=== PATIENT | male | born 1940 | race Caucasian/White ===

== ENCOUNTER 2018-11-14 17:13 | Inpatient (IN) | payer MEDICARE ==
[~2018-11-14] VITALS: Ht 172.7 cm; Wt 73.2 kg
--- NOTE | 2018-11-14 17:41 | EKG ---
[address] [address] Test Date: 2018-11-14 Test Time: 17:36:23 Pat Name: FELISA GARRISON Department: Room: Gender: M [employer]: ROXY : 1940 Requested By: SUSANNA MCDOWELL Order Number: [id number] Reading MD: Freddy Foster Measurements Intervals Vincent Rate: 88 P: 69 OR: 164 QRS: 9 QRSD: 76 T: 51 QT: 352 QTc: 429 Interpretive Statements SINUS RHYTHM NO SPECIFIC ECG ABNORMALITIES RI6.01 No previous ECG available for comparison Electronically Signed On 12-09-2018 13:02:58 CDT by Freddy Foster
--- NOTE | 2018-11-14 17:50 | PHYS DOC ---
Past History Past Medical History: Anxiety, CAD, Dementia, Hypertension (SUSANNA MCDOWELL DO) Smoking: Non-smoker Alcohol Use: None Drug Use: None (RUSSEL MCDOWELLSHARON CARDONA) Adult General Chief Complaint Chief Complaint: MEDICAL CLEARANCE HPI HPI Patient is a 77-year-old male here for medical clearance for the behavioral health unit. He eloped from the facility where he resides yesterday. He is been confused and combative and aggressive with staff. Refusing to take medicine at this facility where he resides. He believes that he is in school and that the staff there is trying to kill him. History is limited from the patient due to his dementia.[] (SUSANNA MCDOWELL ) Review of Systems Review of Systems Constitutional: Denies fever or chills [] Eyes: Denies change in visual acuity, redness, or eye pain [] HENT: Denies nasal congestion or sore throat [] Respiratory: Denies cough or shortness of breath [] Cardiovascular: No chest pain or palpitations[] GI: Denies abdominal pain, nausea, vomiting, bloody stools or diarrhea [] : Denies dysuria or hematuria [] Musculoskeletal: Denies back pain or joint pain [] Integument: Denies rash or skin lesions [] Neurologic: Denies headache, focal weakness or sensory changes [] Endocrine: Denies polyuria or polydipsia [] All other systems were reviewed and found to be within normal limits, except as documented in this note. (SUSANNA MCDOWELL ) Physical Exam Physical Exam Constitutional: Well developed, well nourished, no acute distress, non-toxic appearance. [] HENT: Normocephalic, atraumatic, bilateral external ears normal, oropharynx moist, no oral exudates, nose normal. [] Eyes: PERRLA, EOMI, conjunctiva normal, no discharge. [] Neck: Normal range of motion, no tenderness, supple, no stridor. [] Cardiovascular:Heart rate regular rhythm, no murmur [] Lungs & Thorax: Bilateral breath sounds clear to auscultation [] Abdomen: Bowel sounds normal, soft, no tenderness, no masses, no pulsatile masses. [] Skin: Warm, dry, no erythema, no rash. [] Back: No tenderness, no CVA tenderness. [] Extremities: No tenderness, no cyanosis, no clubbing, ROM intact, no edema. [] Neurologic: Alert and oriented X one, normal motor function, normal sensory function, no focal deficits noted. [] Psychologic: Affect normal, mood normal. [] (SUSANNA MCDOWELL DO) EKG EKG EKG shows a sinus rhythm at 80 bpm, normal axis, normal QTC, no ST elevations. No old EKG available for comparison. Interpreted by me at 1736.[] (SUSANNA MCDOWELL DO) Radiology/Procedures Radiology/Procedures [] (SUSANNA MCDOWELL DO) Course & Med Decision Making Course & Med Decision Making Pertinent Labs and Imaging studies reviewed. (See chart for details) ED course: Patient arrived, was placed in bed, and tolerated exam well. At the time of this dictation labs are pending. Patient care is endorsed to the nighttime physician at 1800 with ultimate disposition pending.[] (SUSANNA MCDOWELL DO) Course & Med Decision Making The patient's labs are unremarkable except for slightly elevated creatinine 1.5. His urine is unremarkable. His valproic acid is subtherapeutic. He is medically stable for behavioral health admission. (ESME MOLINA DO) Dragon Disclaimer Dragon Disclaimer This electronic medical record was generated, in whole or in part, using a voice recognition dictation system. (SUSANNA MCDOWELL DO) Departure Departure: Impression: Primary Impression: Medical clearance for psychiatric admission Disposition: ADMITTED INPATIENT Condition: STABLE Referrals: CARTER BECKER (PCP) SUSANNA MCDOWELL DO Nov 14, 2018 17:49 ESME MOLINA DO Nov 14, 2018 18:25
[2018-11-14 17:51] LABS: BASO # 0.1 x10^3/uL (0.0-0.2); BASO % 1 % (0-3); EOS # 0.2 x10^3/uL (0.0-0.7); EOS % 2 % (0-3); HEMATOCRIT 44.8 % (39.0-53.0); HEMOGLOBIN 15.5 g/dL (13.0-17.5); LYMPH % 22 % (24-48); MEAN CORPUSCULAR HEMOGLOBIN 32 pg (25-35); MEAN CORPUSCULAR HGB CONC 35 g/dL (31-37); MEAN CORPUSCULAR VOLUME 94 fL (79-100); MONO % 11 % (0-9); NEUT # 5.9 x10^3uL (1.8-7.7); NEUT % 64 % (31-73); PLATELET COUNT 203 x10^3/uL (140-400); RED BLOOD COUNT 4.78 x10^6/uL (4.30-5.70); RED CELL DISTRIBUTION WIDTH 13.4 % (11.5-14.5); WHITE BLOOD COUNT 9.2 x10^3/uL (4.0-11.0)
[2018-11-14 17:56] LABS: BACTERIA,URINE 0 /HPF (0-FEW); BILIRUBIN,URINE NEG (NEG); CLARITY,URINE CLEAR; COLOR,URINE AMBER; GLUCOSE,URINE NEG (NEG); NITRITE,URINE NEG (NEG); RBC,URINE 0 /HPF (0-2); UROBILINOGEN,URINE 0.2 mg/dL (0.2 mg/dL); WBC,URINE 0 /HPF (0-4)
[2018-11-14 18:06] LABS: ALBUMIN 3.7 g/dL (3.4-5.0); ALK PHOS 66 U/L (46-116); ALT (SGPT) 38 U/L (16-63); ANION GAP 13 (6-14); AST (SGOT) 30 U/L (15-37); BLOOD UREA NITROGEN 32 mg/dL (8-26); BUN/CREATININE RATIO 21 (6-20); CALCIUM 9.6 mg/dL (8.5-10.1); CARBON DIOXIDE 26 mmol/L (21-32); CHLORIDE 102 mmol/L (98-107); CREATININE 1.5 mg/dL (0.7-1.3); GFR 45.1; GLUCOSE 120 mg/dL (70-99); MAGNESIUM 1.9 mg/dL (1.8-2.4); POTASSIUM 3.5 mmol/L (3.5-5.1); SODIUM 141 mmol/L (136-145); TOTAL BILIRUBIN 0.6 mg/dL (0.2-1.0); TOTAL PROTEIN 7.4 g/dL (6.4-8.2); VAL ACID 22 mcg/mL (50-100)
[2018-11-14] MEDS ORDERED: MAG HYDROX/AL HYDROX/SIMETH 30 ML ORAL.SUSP PO PRN (20:00)
[2018-11-14] MEDS ORDERED: MAGNESIUM HYDROXIDE 2,400 MG/30 ML ORAL.SUSP. PO PRN (20:00)
[2018-11-14] MEDS ORDERED: METHYL SALICYLATE/MENTHOL TOPICAL OINTMENT 29GM TUBE. TP PRN (20:00)
[2018-11-14] MEDS ORDERED: ACETAMINOPHEN 325 MG TABLET PO PRN (20:00)
[2018-11-14 20:08] VITALS: BP 135/78
[2018-11-14] MEDS ORDERED: RIVA1PAT23 TD (21:08)
[2018-11-14] MEDS ORDERED: CARV3.12 PO (21:08)
[2018-11-14] MEDS ORDERED: HYDR12.572 PO (21:08)
[2018-11-14] MEDS ORDERED: CLON0.5T11 PO (21:08)
[2018-11-14] MEDS ORDERED: MIRT30TA PO (21:08)
[2018-11-14] MEDS ORDERED: DIVA500T4 PO (21:08)
[2018-11-14] MEDS ORDERED: AMLO10TA8 PO (21:08)
[2018-11-14] MEDS ORDERED: DIVA250T PO (21:08)
[2018-11-14] MEDS ORDERED: CYAN10005 PO (21:08)
[2018-11-14] MEDS ORDERED: DOCU-109 PO (21:08)
[2018-11-14] MEDS ORDERED: ASPI-630 PO (21:08)
[2018-11-14] MEDS: MIRTAZAPINE 30 MG TABLET PO SCH (21:33)
[2018-11-14] MEDS: clonazePAM 0.5 MG TABLET PO SCH (21:33)
--- NOTE | 2018-11-14 22:23 | PDOC ---
Exam Note: Rex Note: Please also refer to the separate dictated note~for this date of service dictated separately. Discussed the patient with Nursing staff reviewed the chart.~Reviewed interim history and current functioning. Reviewed vital signs,~Labs/ Radiology~and current medications noted below. Continue current treatment with the changes noted in the dictated addendum note Assessment: Vital Signs: Vital Signs Date Time Temp Pulse Resp B/P (MAP) Pulse Ox O2 Delivery O2 Flow Rate FiO2 11/14/18 20:08 99.5 79 20 135/78 (97) 11/14/18 17:15 95 Room Air Labs: Laboratory Tests Test 11/14/18 17:30 White Blood Count 9.2 x10^3/uL (4.0-11.0) Red Blood Count 4.78 x10^6/uL (4.30-5.70) Hemoglobin 15.5 g/dL (13.0-17.5) Hematocrit 44.8 % (39.0-53.0) Mean Corpuscular Volume 94 fL (79-100) Mean Corpuscular Hemoglobin 32 pg (25-35) Mean Corpuscular Hemoglobin Concent 35 g/dL (31-37) Red Cell Distribution Width 13.4 % (11.5-14.5) Platelet Count 203 x10^3/uL (140-400) Neutrophils (%) (Auto) 64 % (31-73) Lymphocytes (%) (Auto) 22 % (24-48) L Monocytes (%) (Auto) 11 % (0-9) H Eosinophils (%) (Auto) 2 % (0-3) Basophils (%) (Auto) 1 % (0-3) Neutrophils # (Auto) 5.9 x10^3uL (1.8-7.7) Lymphocytes # (Auto) 2.0 x10^3/uL (1.0-4.8) Monocytes # (Auto) 1.0 x10^3/uL (0.0-1.1) Eosinophils # (Auto) 0.2 x10^3/uL (0.0-0.7) Basophils # (Auto) 0.1 x10^3/uL (0.0-0.2) Urine Collection Type Unknown Urine Color Deisy Urine Clarity Clear Urine pH 5.5 Urine Specific [place] 1.025 Urine Protein Neg (NEG-TRACE) Urine Glucose (UA) Neg mg/dL (NEG) Urine Ketones (Stick) Neg mg/dL (NEG) Urine Blood Neg (NEG) Urine Nitrite Neg (NEG) Urine Bilirubin Neg (NEG) Urine Urobilinogen Dipstick 0.2 mg/dL (0.2 mg/dL) Urine Leukocyte Esterase Neg (NEG) Urine RBC 0 /HPF (0-2) Urine WBC 0 /HPF (0-4) Urine Squamous Epithelial Cells None /LPF Urine Bacteria 0 /HPF (0-FEW) Sodium Level 141 mmol/L (136-145) Potassium Level 3.5 mmol/L (3.5-5.1) Chloride Level 102 mmol/L (98-107) Carbon Dioxide Level 26 mmol/L (21-32) Anion Gap 13 (6-14) Blood Urea Nitrogen 32 mg/dL (8-26) H Creatinine 1.5 mg/dL (0.7-1.3) H Estimated GFR (Cockcroft-Gault) 45.1 BUN/Creatinine Ratio 21 (6-20) H Glucose Level 120 mg/dL (70-99) H Calcium Level 9.6 mg/dL (8.5-10.1) Magnesium Level 1.9 mg/dL (1.8-2.4) Total Bilirubin 0.6 mg/dL (0.2-1.0) Aspartate Amino Transferase (AST) 30 U/L (15-37) Alanine Aminotransferase (ALT) 38 U/L (16-63) Alkaline Phosphatase 66 U/L (46-116) Total Protein 7.4 g/dL (6.4-8.2) Albumin 3.7 g/dL (3.4-5.0) Albumin/Globulin Ratio 1.0 (1.0-1.7) Valproic Acid Level 22 mcg/mL (50-100) L Valproic Acid Last Dose Date 11/14/2018 Valproic Acid Last Dose Time 0001 Current Medications: Meds: Current Medications Acetaminophen (Tylenol) 650 mg PRN Q6HRS PRN PO PAIN / TEMP; Start 11/14/18 at 20:00 Multi-Ingredient Ointment (Analgesic [place]) 1 zahida PRN QID PRN TP MUSCLE PAIN; Start 11/14/18 at 20:00 Al Hydroxide/Mg Hydroxide (Mylanta Plus Xs) 15 ml PRN AFTMEALHC PRN PO DYSPEP KODY; Start 11/14/18 at 20:00 Magnesium Hydroxide (Milk Of Magnesia) 2,400 mg PRN QHS PRN PO CONSTIPATION; Start 11/14/18 at 20:00 Clonazepam (KlonoPIN) 0.25 mg BID PO Last administered on 11/14/18at 21:33; Start 11/14/18 at 21:30 Mirtazapine (Remeron) 30 mg QHS PO Last administered on 11/14/18at 21:33; Start 11/14/18 at 21:30 Divalproex Sodium (Depakote Er) 250 mg DAILY PO ; Start 11/15/18 at 09:00 Divalproex Sodium (Depakote Er) 500 mg DAILY PO ; Start 11/15/18 at 09:00 Rivastigmine (Exelon) 1 patch DAILY TD ; Start 11/15/18 at 09:00 Cyanocobalamin (Vitamin B-12) 1,000 mcg DAILY PO ; Start 11/15/18 at 09:00 Hydrochlorothiazide (Microzide) 12.5 mg DAILY PO ; Start 11/15/18 at 09:00 Amlodipine Besylate (Norvasc) 10 mg DAILY PO ; Start 11/15/18 at 09:00 Aspirin (Children'S Aspirin) 81 mg DAILY PO ; Start 11/15/18 at 09:00 Carvedilol (Coreg) 3.125 mg BIDWMEALS PO ; Start 11/15/18 at 08:00 Docusate Sodium (Colace) 100 mg DAILY PO ; Start 11/15/18 at 09:00 Active Scripts Active Reported Vitamin B-12 (Cyanocobalamin (Vitamin B-12)) 1,000 Mcg Tablet 1,000 Mcg PO DAILY Remeron (Mirtazapine) 30 Mg Tablet 30 Mg PO QHS Hydrochlorothiazide Capsule (Hydrochlorothiazide) 12.5 Mg Capsule 12.5 Mg PO DAILY EXELON 9.5mg/24hr (Rivastigmine) 1 Each Patch.td24 1 Patch TD DAILY Depakote Er (Divalproex Sodium) 500 Mg Tab.er.24h 500 Mg PO DAILY Depakote Er (Divalproex Sodium) 250 Mg Tab.er.24h 250 Mg PO DAILY Coreg (Carvedilol) 3.125 Mg Tablet 3.125 Mg PO BIDWMEALS Colace (Docusate Sodium) 100 Mg Capsule 100 Mg PO DAILY Amlodipine Besylate 10 Mg Tablet 10 Mg PO DAILY Aspirin 81 Mg Tab.chew 81 Mg PO DAILY Clonazepam 0.5 Mg Tablet 0.25 Mg PO BID I have reviewed the current psychotropics carefully including drug interactions. Risk benefit ratio favors no change other than as noted in my dictated progress note. GILDARDO CRAWFORD MD Nov 14, 2018 22:23
[2018-11-15 05:45] VITALS: BP 161/73
[2018-11-15] MEDS: DIVALPROEX ER 250 MG TAB.ER.24H. PO SCH (08:43)
[2018-11-15] MEDS: hydroCHLOROthiazide 12.5 MG CAPSULE PO SCH (08:43)
[2018-11-15] MEDS: clonazePAM 0.5 MG TABLET PO SCH ×2 (08:43→20:14)
[2018-11-15] MEDS: DIVALPROEX ER 500 MG TAB.ER.24H PO SCH (08:43)
[2018-11-15] MEDS: CARVEDILOL 3.125 MG TABLET PO SCH ×2 (08:43→16:57)
[2018-11-15] MEDS: DOCUSATE SODIUM 100 MG CAPSULE PO SCH (08:43)
[2018-11-15] MEDS: amLODIPine BESYLATE 10 MG TABLET PO SCH (08:43)
[2018-11-15] MEDS: ASPIRIN 81 MG TAB.CHEW PO SCH (08:43)
[2018-11-15] MEDS: CYANOCOBALAMIN (VITAMIN B-12) 1,000 MCG TABLET. PO SCH (08:43)
[2018-11-15] MEDS: RIVASTIGMINE 9.5MG PATCH. TD SCH (08:44)
[2018-11-15 16:22] LABS: THYROID STIM HORMONE (TSH) 1.678 uIU/mL (0.358-3.740)
[2018-11-15 16:28] VITALS: BP 119/67
[2018-11-15] MEDS: MIRTAZAPINE 30 MG TABLET PO SCH (20:14)
--- NOTE | 2018-11-15 22:40 | PDOC ---
Exam Note: Rex Note: Please also refer to the separate dictated note~for this date of service dictated separately.~Patient seen individually. Discussed the patient with Nursing staff reviewed the chart.~Reviewed interim history and current functioning. Reviewed vital signs,~Labs/ Radiology~and current medications noted below. Continue current treatment with the changes noted in the dictated addendum note Assessment: Vital Signs: Vital Signs Date Time Temp Pulse Resp B/P (MAP) Pulse Ox O2 Delivery O2 Flow Rate FiO2 11/15/18 16:57 74 119/67 11/15/18 16:28 98.4 18 94 11/14/18 17:15 Room Air I&O Intake and Output 11/15/18 06:59 Intake Total 240 ml Balance 240 ml Intake Oral 240 ml # Voids 1 Current Medications: Meds: Current Medications Acetaminophen (Tylenol) 650 mg PRN Q6HRS PRN PO PAIN / TEMP; Start 11/14/18 at 20:00 Multi-Ingredient Ointment (Analgesic [place]) 1 zahida PRN QID PRN TP MUSCLE PAIN; Start 11/14/18 at 20:00 Al Hydroxide/Mg Hydroxide (Mylanta Plus Xs) 15 ml PRN AFTMEALHC PRN PO DYSPEPSIA; Start 11/14/18 at 20:00 Magnesium Hydroxide (Milk Of Magnesia) 2,400 mg PRN QHS PRN PO CONSTIPATION; Start 11/14/18 at 20:00 Clonazepam (KlonoPIN) 0.25 mg BID PO Last administered on 11/15/18at 20:14; Start 11/14/18 at 21:30 Mirtazapine (Remeron) 30 mg QHS PO Last administered on 11/15/18at 20:14; Start 11/14/18 at 21:30 Divalproex Sodium (Depakote Er) 250 mg DAILY PO Last administered on 11/15/18at 08:43; Start 11/15/18 at 09:00 Divalproex Sodium (Depakote Er) 500 mg DAILY PO Last administered on 11/15/18 08:43; Start 11/15/18 at 09:00 Rivastigmine (Exelon) 1 patch DAILY TD Last administered on 11/15/18at 08:44; Start 11/15/18 at 09:00 Cyanocobalamin (Vitamin B-12) 1,000 mcg DAILY PO Last administered on 11/15/18 08:43; Start 11/15/18 at 09:00 Hydrochlorothiazide (Microzide) 12.5 mg DAILY PO Last administered on 11/15/18 08:43; Start 11/15/18 at 09:00 Amlodipine Besylate (Norvasc) 10 mg DAILY PO Last administered on 11/15/18at 0 8:43; Start 11/15/18 at 09:00 Aspirin (Children'S Aspirin) 81 mg DAILY PO Last administered on 11/15/18 08:43; Start 11/15/18 at 09:00 Carvedilol (Coreg) 3.125 mg BIDWMEALS PO Last administered on 11/15/18 16:57; Start 11/15/18 at 08:00 Docusate Sodium (Colace) 100 mg DAILY PO Last administered on 11/15/18 08:43; Start 11/15/18 at 09:00 Active Scripts Active Reported Vitamin B-12 (Cyanocobalamin (Vitamin B-12)) 1,000 Mcg Tablet 1,000 Mcg PO DAILY Remeron (Mirtazapine) 30 Mg Tablet 30 Mg PO QHS Hydrochlorothiazide Capsule (Hydrochlorothiazide) 12.5 Mg Capsule 12.5 Mg PO DAILY EXELON 9.5mg/24hr (Rivastigmine) 1 Each Patch.td24 1 Patch TD DAILY Depakote Er (Divalproex Sodium) 500 Mg Tab.er.24h 500 Mg PO DAILY Depakote Er (Divalproex Sodium) 250 Mg Tab.er.24h 250 Mg PO DAILY Coreg (Carvedilol) 3.125 Mg Tablet 3.125 Mg PO BIDWMEALS Colace (Docusate Sodium) 100 Mg Capsule 100 Mg PO DAILY Amlodipine Besylate 10 Mg Tablet 10 Mg PO DAILY Aspirin 81 Mg Tab.chew 81 Mg PO DAILY Clonazepam 0.5 Mg Tablet 0.25 Mg PO BID I have reviewed the current psychotropics carefully including drug interactions. Risk benefit ratio favors no change other than as noted in my dictated progress note. Diagnosis: Problems: (1) Anxiety disorder (2) Dementia in Alzheimer's disease with delusions (3) Dementia in Alzheimer's disease with depression (4) Dementia, vascular, with delusions (5) Dementia, vascular, with depression (6) Impulse control disorder GILDARDO CRAWFORD MD Nov 15, 2018 22:40
[2018-11-15 23:08] LABS: HEMOGLOBIN A1C 5.5 % (4.8-5.6)
[2018-11-16 05:52] VITALS: BP 151/50
[2018-11-16] MEDS: DOCUSATE SODIUM 100 MG CAPSULE PO SCH (09:09)
[2018-11-16] MEDS: DIVALPROEX ER 250 MG TAB.ER.24H. PO SCH (09:09)
[2018-11-16] MEDS: ASPIRIN 81 MG TAB.CHEW PO SCH (09:09)
[2018-11-16] MEDS: CARVEDILOL 3.125 MG TABLET PO SCH ×3 (09:09→20:04)
[2018-11-16] MEDS: hydroCHLOROthiazide 12.5 MG CAPSULE PO SCH (09:11)
[2018-11-16] MEDS: CYANOCOBALAMIN (VITAMIN B-12) 1,000 MCG TABLET. PO SCH (09:11)
[2018-11-16] MEDS: amLODIPine BESYLATE 10 MG TABLET PO SCH (09:11)
[2018-11-16] MEDS: RIVASTIGMINE 9.5MG PATCH. TD SCH (09:11)
[2018-11-16] MEDS: DIVALPROEX ER 500 MG TAB.ER.24H PO SCH (09:11)
[2018-11-16] MEDS: clonazePAM 0.5 MG TABLET PO SCH ×2 (09:13→20:05)
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
[2018-11-16 16:49] VITALS: BP 110/50
[2018-11-16] MEDS: MIRTAZAPINE 30 MG TABLET PO SCH (20:04)
--- NOTE | 2018-11-16 22:44 | PDOC ---
Exam Note: Rex Note: Please also refer to the separate dictated note~for this date of service dictated separately.~Patient seen individually. Discussed the patient with Nursing staff reviewed the chart.~Reviewed interim history and current functioning. Reviewed vital signs,~Labs/ Radiology~and current medications noted below. Continue current treatment with the changes noted in the dictated addendum note Assessment: Vital Signs: Vital Signs Date Time Temp Pulse Resp B/P (MAP) Pulse Ox O2 Delivery O2 Flow Rate FiO2 11/16/18 20:04 79 123/73 11/16/18 16:49 98.3 16 94 11/14/18 17:15 Room Air I&O Intake and Output 11/16/18 06:59 Intake Total 1320 ml Balance 1320 ml Intake Oral 1320 ml # Bowel Movements 1 Current Medications: Meds: Current Medications Acetaminophen (Tylenol) 650 mg PRN Q6HRS PRN PO PAIN / TEMP; Start 11/14/18 at 20:00 Multi-Ingredient Ointment (Analgesic [place]) 1 zahida PRN QID PRN TP MUSCLE PAIN; S tart 11/14/18 at 20:00 Al Hydroxide/Mg Hydroxide (Mylanta Plus Xs) 15 ml PRN AFTMEALHC PRN PO DYSPEPSIA; Start 11/14/18 at 20:00 Magnesium Hydroxide (Milk Of Magnesia) 2,400 mg PRN QHS PRN PO CONSTIPATION; Start 11/14/18 at 20:00 Clonazepam (KlonoPIN) 0.25 mg BID PO Last administered on 11/16/18at 20:05; Start 11/14/18 at 21:30 Mirtazapine (Remeron) 30 mg QHS PO Last administered on 11/16/18at 20:04; Start 11/14/18 at 21:30 Divalproex Sodium (Depakote Er) 250 mg DAILY PO Last administered on 11/16/18at 09:09; Start 11/15/18 at 09:00 Divalproex Sodium (Depakote Er) 500 mg DAILY PO Last administered on 11/16/18at 09:11; Start 11/15/18 at 09:00 Rivastigmine (Exelon) 1 patch DAILY TD Last administered on 11/16/18at 09:11; Start 11/15/18 at 09:00 Cyanocobalamin (Vitamin B-12) 1,000 mcg DAILY PO Last administered on 11/16/18 09:11; Start 11/15/18 at 09:00 Hydrochlorothiazide (Microzide) 12.5 mg DAILY PO Last administered on 11/16/18 09:11; Start 11/15/18 at 09:00 Amlodipine Besylate (Norvasc) 10 mg DAILY PO Last administered on 11/16/18 09:11; Start 11/15/18 at 09:00 Aspirin (Children'S Aspirin) 81 mg DAILY PO Last administered on 11/16/18 09:09; Start 11/15/18 at 09:00 Carvedilol (Coreg) 3.125 mg BIDWMEALS PO Last administered on 11/16/18 20:04; Start 11/15/18 at 08:00 Docusate Sodium (Colace) 100 mg DAILY PO Last administered on 11/16/18 09:09; Start 11/15/18 at 09:00 Olanzapine (ZyPREXA ZYDIS) 2.5 mg PRN Q2HR PRN PO PSYCHOSIS Last administered on 11/15/18 23:39; Start 11/15/18 at 23:30 Active Scripts Active Reported Vitamin B-12 (Cyanocobalamin (Vitamin B-12)) 1,000 Mcg Tablet 1,000 Mcg PO DAILY Remeron (Mirtazapine) 30 Mg Tablet 30 Mg PO QHS Hydrochlorothiazide Capsule (Hydrochlorothiazide) 12.5 Mg Capsule 12.5 Mg PO DAILY EXELON 9.5mg/24hr (Rivastigmine) 1 Each Patch.td24 1 Patch TD DAILY Depakote Er (Divalproex Sodium) 500 Mg Tab.er.24h 500 Mg PO DAILY Depakote Er (Divalproex Sodium) 250 Mg Tab.er.24h 250 Mg PO DAILY Coreg (Carvedilol) 3.125 Mg Tablet 3.125 Mg PO BIDWMEALS Colace (Docusate Sodium) 100 Mg Capsule 100 Mg PO DAILY Amlodipine Besylate 10 Mg Tablet 10 Mg PO DAILY Aspirin 81 Mg Tab.chew 81 Mg PO DAILY Clonazepam 0.5 Mg Tablet 0.25 Mg PO BID I have reviewed the current psychotropics carefully including drug interactions. Risk benefit ratio favors no change other than as noted in my dictated progress note. Diagnosis: Problems: (1) Anxiety disorder (2) Dementia in Alzheimer's disease with delusions (3) Dementia in Alzheimer's disease with depression (4) Dementia, vascular, with delusions (5) Dementia, vascular, with depression (6) Impulse control disorder GILDARDO CRAWFORD MD Nov 16, 2018 22:44
[2018-11-17 06:02] VITALS: BP 142/74
[2018-11-17] MEDS: DIVALPROEX ER 250 MG TAB.ER.24H. PO SCH (08:13)
[2018-11-17] MEDS: DOCUSATE SODIUM 100 MG CAPSULE PO SCH (08:13)
[2018-11-17] MEDS: ASPIRIN 81 MG TAB.CHEW PO SCH (08:13)
[2018-11-17] MEDS: DIVALPROEX ER 500 MG TAB.ER.24H PO SCH (08:13)
[2018-11-17] MEDS: hydroCHLOROthiazide 12.5 MG CAPSULE PO SCH (08:14)
[2018-11-17] MEDS: RIVASTIGMINE 9.5MG PATCH. TD SCH (08:14)
[2018-11-17] MEDS: amLODIPine BESYLATE 10 MG TABLET PO SCH (08:14)
[2018-11-17] MEDS: CYANOCOBALAMIN (VITAMIN B-12) 1,000 MCG TABLET. PO SCH (08:14)
[2018-11-17] MEDS: CARVEDILOL 3.125 MG TABLET PO SCH (08:15)
[2018-11-17] MEDS: clonazePAM 0.5 MG TABLET PO SCH (08:17)
[2018-11-17 15:58] VITALS: BP 116/71
[2018-11-17] MEDS: LORazepam 1 MG TABLET PO PRN (16:40)
[2018-11-17] MEDS: MIRTAZAPINE 30 MG TABLET PO SCH (20:00)
--- NOTE | 2018-11-17 22:51 | PDOC ---
Exam Note: Rex Note: Please also refer to the separate dictated note~for this date of service dictated separately.~Patient seen individually. Discussed the patient with Nursing staff reviewed the chart.~Reviewed interim history and current functioning. Reviewed vital signs,~Labs/ Radiology~and current medications noted below. Continue current treatment with the changes noted in the dictated addendum note Assessment: Vital Signs: Vital Signs Date Time Temp Pulse Resp B/P (MAP) Pulse Ox O2 Delivery O2 Flow Rate FiO2 11/17/18 15:58 98.7 67 16 116/71 (86) 97 11/14/18 17:15 Room Air I&O Intake and Output 11/17/18 07:00 Intake Total 1260 ml Balance 1260 ml Intake Oral 1260 ml Current Medications: Meds: Current Medications Acetaminophen (Tylenol) 650 mg PRN Q6HRS PRN PO PAIN / TEMP; Start 11/14/18 at 20:00 Multi-Ingredient Ointment (Analgesic [place]) 1 zahida PRN QID PRN TP MUSCLE PAIN; Start 11/14/18 at 20:00 Al Hydroxide/Mg Hydroxide (Mylanta Plus Xs) 15 ml PRN AFTMEALHC PRN PO DYSPEPSIA; Start 11/14/18 at 20:00 Magnesium Hydroxide (Milk Of Magnesia) 2,400 mg PRN QHS PRN PO CONSTIPATION; Start 11/14/18 at 20:00 Clonazepam (KlonoPIN) 0.25 mg BID PO Last administered on 11/17/18at 08:17; Start 11/14/18 at 21:30; Stop 11/17/18 at 11:21; Status DC Mirtazapine (Remeron) 30 mg QHS PO Last administered on 11/17/18at 20:00; Start 11/14/18 at 21:30 Divalproex Sodium (Depakote Er) 250 mg DAILY PO Last administered on 11/17/18at 08:13; Start 11/15/18 at 09:00; Stop 11/17/18 at 11:21; Status DC Divalproex Sodium (Depakote Er) 500 mg DAILY PO Last administered on 11/17/18at 08:13; Start 11/15/18 at 09:00; Stop 11/17/18 at 11:27; Status DC Rivastigmine (Exelon) 1 patch DAILY TD Last administered on 11/17/18 08:14; Start 11/15/18 at 09:00 Cyanocobalamin (Vitamin B-12) 1,000 mcg DAILY PO Last administered on 11/17/18 08:14; Start 11/15/18 at 09:00 Hydrochlorothiazide (Microzide) 12.5 mg DAILY PO Last administered on 11/17/18 08:14; Start 11/15/18 at 09:00 Amlodipine Besylate (Norvasc) 10 mg DAILY PO Last administered on 11/17/18 08:14; Start 11/15/18 at 09:00 Aspirin (Children'S Aspirin) 81 mg DAILY PO Last administered on 11/17/18 08:13; Start 11/15/18 at 09:00 Carvedilol (Coreg) 3.125 mg BIDWMEALS PO Last administered on 11/17/18 08:15; Start 11/15/18 at 08:00 Docusate Sodium (Colace) 100 mg DAILY PO Last administered on 11/17/18 08:13; Start 11/15/18 at 09:00 Olanzapine (ZyPREXA ZYDIS) 2.5 mg PRN Q2HR PRN PO PSYCHOSIS Last administered on 11/17/18 15:49; Start 11/15/18 at 23:30 Clonazepam (KlonoPIN) 0.25 mg DAILY PO ; Start 11/18/18 at 09:00; Stop 11/20/18 at 12:00 Divalproex Sodium (Depakote Er) 1,000 mg HS PO ; Start 11/18/18 at 21:00 Sertraline HCl (Zoloft) 25 mg DAILY PO ; Start 11/18/18 at 09:00; Stop 11/20/18 at 12:00 Sertraline HCl (Zoloft) 50 mg DAILY PO ; Start 11/18/18 at 09:00 Lorazepam (Ativan) 1 mg TID PRN PRN PO ANXIETY / AGITATION Last administered on 11/17/18 16:40; Start 11/17/18 at 16:45 Active Scripts Active Reported Vitamin B-12 (Cyanocobalamin (Vitamin B-12)) 1,000 Mcg Tablet 1,000 Mcg PO DAILY Remeron (Mirtazapine) 30 Mg Tablet 30 Mg PO QHS Hydrochlorothiazide Capsule (Hydrochlorothiazide) 12.5 Mg Capsule 12.5 Mg PO DAILY EXELON 9.5mg/24hr (Rivastigmine) 1 Each Patch.td24 1 Patch TD DAILY Depakote Er (Divalproex Sodium) 500 Mg Tab.er.24h 500 Mg PO DAILY Depakote Er (Divalproex Sodium) 250 Mg Tab.er.24h 250 Mg PO DAILY Coreg (Carvedilol) 3.125 Mg Tablet 3.125 Mg PO BIDWMEALS Colace (Docusate Sodium) 100 Mg Capsule 100 Mg PO DAILY Amlodipine Besylate 10 Mg Tablet 10 Mg PO DAILY Aspirin 81 Mg Tab.chew 81 Mg PO DAILY Clonazepam 0.5 Mg Tablet 0.25 Mg PO BID I have reviewed the current psychotropics carefully including drug interactions. Risk benefit ratio favors no change other than as noted in my dictated progress note. Diagnosis: Problems: (1) Anxiety disorder (2) Dementia in Alzheimer's disease with delusions (3) Dementia in Alzheimer's disease with depression (4) Dementia, vascular, with delusions (5) Dementia, vascular, with depression (6) Impulse control disorder GILDARDO CRAWFORD MD Nov 17, 2018 22:51
[2018-11-18 06:04] VITALS: BP 137/77
[2018-11-18] MEDS: amLODIPine BESYLATE 10 MG TABLET PO SCH (08:20)
[2018-11-18] MEDS: CYANOCOBALAMIN (VITAMIN B-12) 1,000 MCG TABLET. PO SCH (08:20)
[2018-11-18] MEDS: hydroCHLOROthiazide 12.5 MG CAPSULE PO SCH (08:20)
[2018-11-18] MEDS: DOCUSATE SODIUM 100 MG CAPSULE PO SCH (08:20)
[2018-11-18] MEDS: ASPIRIN 81 MG TAB.CHEW PO SCH (08:20)
[2018-11-18] MEDS: RIVASTIGMINE 9.5MG PATCH. TD SCH (08:20)
[2018-11-18] MEDS: CARVEDILOL 3.125 MG TABLET PO SCH ×2 (08:20→17:00)
[2018-11-18] MEDS: clonazePAM 0.5 MG TABLET PO SCH (08:22)
[2018-11-18] MEDS: SERTRALINE 25 MG TABLET. PO SCH (08:22)
[2018-11-18] MEDS: SERTRALINE 50 MG TABLET. PO SCH (08:23)
[2018-11-18 16:17] VITALS: BP 121/87
[2018-11-18] MEDS: MIRTAZAPINE 30 MG TABLET PO SCH (19:51)
[2018-11-18] MEDS: DIVALPROEX ER 500 MG TAB.ER.24H PO SCH (21:16)
--- NOTE | 2018-11-18 22:32 | PDOC ---
Exam Note: Rex Note: Please also refer to the separate dictated note~for this date of service dictated separately.~Patient seen individually. Discussed the patient with Nursing staff reviewed the chart.~Reviewed interim history and current functioning. Reviewed vital signs,~Labs/ Radiology~and current medications noted below. Continue current treatment with the changes noted in the dictated addendum note Assessment: Vital Signs: Vital Signs Date Time Temp Pulse Resp B/P (MAP) Pulse Ox O2 Delivery O2 Flow Rate FiO2 11/18/18 17:00 93 121/87 11/18/18 16:17 98.2 20 97 Room Air I&O Intake and Output 11/18/18 07:00 Intake Total 840 ml Balance 840 ml Intake Oral 840 ml Current Medications: Meds: Current Medications Acetaminophen (Tylenol) 650 mg PRN Q6HRS PRN PO PAIN / TEMP; Start 11/14/18 at 20:00 Multi-Ingredient Ointment (Analgesic [place]) 1 zahida PRN QID PRN TP MUSCLE PAIN; Start 11/14/18 at 20:00 Al Hydroxide/Mg Hydroxide (Mylanta Plus Xs) 15 ml PRN AFTMEALHC PRN PO DYSPEPSIA; Start 11/14/18 at 20:00 Magnesium Hydroxide (Milk Of Magnesia) 2,400 mg PRN QHS PRN PO CONSTIPATION; Start 11/14/18 at 20:00 Clonazepam (KlonoPIN) 0.25 mg BID PO Last administered on 11/17/18at 08:17; Start 11/14/18 at 21:30; Stop 11/17/18 at 11:21; Status DC Mirtazapine (Remeron) 30 mg QHS PO Last administered on 11/18/18at 19:51; Start 11/14/18 at 21:30 Divalproex Sodium (Depakote Er) 250 mg DAILY PO Last administered on 11/17/18at 08:13; Start 11/15/18 at 09:00; Stop 11/17/18 at 11:21; Status DC Divalproex Sodium (Depakote Er) 500 mg DAILY PO Last administered on 11/17/18at 08:13; Start 11/15/18 at 09:00; Stop 11/17/18 at 11:27; Status DC Rivastigmine (Exelon) 1 patch DAILY TD Last administered on 11/18/18 08:20; Start 11/15/18 at 09:00 Cyanocobalamin (Vitamin B-12) 1,000 mcg DAILY PO Last administered on 11/18/18 08:20; Start 11/15/18 at 09:00 Hydrochlorothiazide (Microzide) 12.5 mg DAILY PO Last administered on 11/18/18 08:20; Start 11/15/18 at 09:00 Amlodipine Besylate (Norvasc) 10 mg DAILY PO Last administered on 11/18/18 08:20; Start 11/15/18 at 09:00 Aspirin (Children'S Aspirin) 81 mg DAILY PO Last administered on 11/18/18 08:20; Start 11/15/18 at 09:00 Carvedilol (Coreg) 3.125 mg BIDWMEALS PO Last administered on 11/18/18 17:00; Start 11/15/18 at 08:00 Docusate Sodium (Colace) 100 mg DAILY PO Last administered on 11/18/18 08:20; Start 11/15/18 at 09:00 Olanzapine (ZyPREXA ZYDIS) 2.5 mg PRN Q2HR PRN PO PSYCHOSIS Last administered on 11/18/18 17:45; Start 11/15/18 at 23:30 Clonazepam (KlonoPIN) 0.25 mg DAILY PO Last administered on 11/18/18 08:22; Start 11/18/18 at 09:00; Stop 11/20/18 at 12:00 Divalproex Sodium (Depakote Er) 1,000 mg HS PO Last administered on 11/18/18 21:16; Start 11/18/18 at 21:00 Sertraline HCl (Zoloft) 25 mg DAILY PO Last administered on 11/18/18 08:22; Start 11/18/18 at 09:00; Stop 11/20/18 at 12:00 Sertraline HCl (Zoloft) 50 mg DAILY PO Last administered on 11/18/18 08:23; Start 11/18/18 at 09:00 Lorazepam (Ativan) 1 mg TID PRN PRN PO ANXIETY / AGITATION Last administered on 11/17/18 16:40; Start 11/17/18 at 16:45 Active Scripts Active Reported Vitamin B-12 (Cyanocobalamin (Vitamin B-12)) 1,000 Mcg Tablet 1,000 Mcg PO DAILY Remeron (Mirtazapine) 30 Mg Tablet 30 Mg PO QHS Hydrochlorothiazide Capsule (Hydrochlorothiazide) 12.5 Mg Capsule 12.5 Mg PO DAILY EXELON 9.5mg/24hr (Rivastigmine) 1 Each Patch.td24 1 Patch TD DAILY Depakote Er (Divalproex Sodium) 500 Mg Tab.er.24h 500 Mg PO DAILY Depakote Er (Divalproex Sodium) 250 Mg Tab.er.24h 250 Mg PO DAILY Coreg (Carvedilol) 3.125 Mg Tablet 3.125 Mg PO BIDWMEALS Colace (Docusate Sodium) 100 Mg Capsule 100 Mg PO DAILY Amlodipine Besylate 10 Mg Tablet 10 Mg PO DAILY Aspirin 81 Mg Tab.chew 81 Mg PO DAILY Clonazepam 0.5 Mg Tablet 0.25 Mg PO BID I have reviewed the current psychotropics carefully including drug interactions. Risk benefit ratio favors no change other than as noted in my dictated progress note. Diagnosis: Problems: (1) Anxiety disorder (2) Dementia in Alzheimer's disease with delusions (3) Dementia in Alzheimer's disease with depression (4) Dementia, vascular, with delusions (5) Dementia, vascular, with depression (6) Impulse control disorder GILDARDO CRAWFORD MD Nov 18, 2018 22:32
--- NOTE | 2018-11-19 01:50 | PN ---
DATE: 11/16/2018 PSYCHIATRIC PROGRESS NOTE This late entry for 11/16/2018 covers elements not covered in my initial note. SUBJECTIVE: I met with the patient in the evening. The patient slept 3-1/2 hours previous night, had a good day, remains confused. He was agitated previous night, paranoid, delusional, received Zyprexa p.r.n. He has been less agitated and more pleasant. REVIEW OF SYSTEMS: No CV, , pulmonary, eye, ENT system symptoms on review. Reliability poor. MENTAL STATUS EXAM: Oriented to himself. Insight, judgment, recent and remote memory, attention, concentration, fund of knowledge poor, consistent with his diagnosis mentioned in my initial note. PLAN: No change from initial note. MAN Jennifer CRAWFORD MD DR: INOCENCIO/karli JOB#: [id number] / [id number]
[2018-11-19 06:53] VITALS: BP 152/81
[2018-11-19] MEDS: amLODIPine BESYLATE 10 MG TABLET PO SCH (08:43)
[2018-11-19] MEDS: hydroCHLOROthiazide 12.5 MG CAPSULE PO SCH (08:43)
[2018-11-19] MEDS: RIVASTIGMINE 9.5MG PATCH. TD SCH (08:43)
[2018-11-19] MEDS: SERTRALINE 50 MG TABLET. PO SCH (08:43)
[2018-11-19] MEDS: SERTRALINE 25 MG TABLET. PO SCH (08:43)
[2018-11-19] MEDS: DOCUSATE SODIUM 100 MG CAPSULE PO SCH (08:43)
[2018-11-19] MEDS: ASPIRIN 81 MG TAB.CHEW PO SCH (08:43)
[2018-11-19] MEDS: CARVEDILOL 3.125 MG TABLET PO SCH ×2 (08:44→17:00)
[2018-11-19] MEDS: CYANOCOBALAMIN (VITAMIN B-12) 1,000 MCG TABLET. PO SCH (08:44)
[2018-11-19] MEDS: clonazePAM 0.5 MG TABLET PO SCH (08:45)
[2018-11-19 16:40] VITALS: BP 104/64
[2018-11-19] MEDS: LORazepam 1 MG TABLET PO PRN (18:08)
--- NOTE | 2018-11-19 20:47 | PDOC ---
Exam Note: Rex Note: Please also refer to the separate dictated note~for this date of service dictated separately.~Patient seen individually. Discussed the patient with Nursing staff reviewed the chart.~Reviewed interim history and current functioning. Reviewed vital signs,~Labs/ Radiology~and current medications noted below. Continue current treatment with the changes noted in the dictated addendum note Assessment: Vital Signs: Vital Signs Date Time Temp Pulse Resp B/P (MAP) Pulse Ox O2 Delivery O2 Flow Rate FiO2 11/19/18 17:00 68 104/64 11/19/18 16:40 98.0 20 96 Room Air I&O Intake and Output 11/19/18 07:00 Intake Total 840 ml Balance 840 ml Intake Oral 840 ml # Voids 1 Current Medications: Meds: Current Medications Acetaminophen (Tylenol) 650 mg PRN Q6HRS PRN PO PAIN / TEMP; Start 11/14/18 at 20:00 Multi-Ingredient Ointment (Analgesic [place]) 1 zahida PRN QID PRN TP MUSCLE PAIN; Start 11/14/18 at 20:00 Al Hydroxide/Mg Hydroxide (Mylanta Plus Xs) 15 ml PRN AFTMEALHC PRN PO DYSPEPSIA; Start 11/14/18 at 20:00 Magnesium Hydroxide (Milk Of Magnesia) 2,400 mg PRN QHS PRN PO CONSTIPATION; Start 11/14/18 at 20:00 Clonazepam (KlonoPIN) 0.25 mg BID PO Last administered on 11/17/18at 08:17; Start 11/14/18 at 21:30; Stop 11/17/18 at 11:21; Status DC Mirtazapine (Remeron) 30 mg QHS PO Last administered on 11/18/18at 19:51; Start 11/14/18 at 21:30 Divalproex Sodium (Depakote Er) 250 mg DAILY PO Last administered on 11/17/18at 08:13; Start 11/15/18 at 09:00; Stop 11/17/18 at 11:21; Status DC Divalproex Sodium (Depakote Er) 500 mg DAILY PO Last administered on 11/17/18at 08:13; Start 11/15/18 at 09:00; Stop 11/17/18 at 11:27; Status DC Rivastigmine (Exelon) 1 patch DAILY TD Last administered on 11/19/18 08:43; Start 11/15/18 at 09:00 Cyanocobalamin (Vitamin B-12) 1,000 mcg DAILY PO Last administered on 11/19/18 08:44; Start 11/15/18 at 09:00 Hydrochlorothiazide (Microzide) 12.5 mg DAILY PO Last administered on 11/19/18 08:43; Start 11/15/18 at 09:00 Amlodipine Besylate (Norvasc) 10 mg DAILY PO Last administered on 11/19/18 08:43; Start 11/15/18 at 09:00 Aspirin (Children'S Aspirin) 81 mg DAILY PO Last administered on 11/19/18 08:43; Start 11/15/18 at 09:00 Carvedilol (Coreg) 3.125 mg BIDWMEALS PO Last administered on 11/19/18 17:00; Start 11/15/18 at 08:00 Docusate Sodium (Colace) 100 mg DAILY PO Last administered on 11/19/18 08:43; Start 11/15/18 at 09:00 Olanzapine (ZyPREXA ZYDIS) 2.5 mg PRN Q2HR PRN PO PSYCHOSIS Last administered on 11/19/18 08:45; Start 11/15/18 at 23:30 Clonazepam (KlonoPIN) 0.25 mg DAILY PO Last administered on 11/19/18 08:45; Start 11/18/18 at 09:00; Stop 11/20/18 at 12:00 Divalproex Sodium (Depakote Er) 1,000 mg HS PO Last administered on 11/18/18 21:16; Start 11/18/18 at 21:00 Sertraline HCl (Zoloft) 25 mg DAILY PO Last administered on 11/19/18 08:43; Start 11/18/18 at 09:00; Stop 11/20/18 at 12:00 Sertraline HCl (Zoloft) 50 mg DAILY PO Last administered on 11/19/18 08:43; Start 11/18/18 at 09:00 Lorazepam (Ativan) 1 mg TID PRN PRN PO ANXIETY / AGITATION Last administered on 11/19/18 18:08; Start 6/6/19 at 16:45 Active Scripts Active Reported Vitamin B-12 (Cyanocobalamin (Vitamin B-12)) 1,000 Mcg Tablet 1,000 Mcg PO DAILY Remeron (Mirtazapine) 30 Mg Tablet 30 Mg PO QHS Hydrochlorothiazide Capsule (Hydrochlorothiazide) 12.5 Mg Capsule 12.5 Mg PO DAILY EXELON 9.5mg/24hr (Rivastigmine) 1 Each Patch.td24 1 Patch TD DAILY Depakote Er (Divalproex Sodium) 500 Mg Tab.er.24h 500 Mg PO DAILY Depakote Er (Divalproex Sodium) 250 Mg Tab.er.24h 250 Mg PO DAILY Coreg (Carvedilol) 3.125 Mg Tablet 3.125 Mg PO BIDWMEALS Colace (Docusate Sodium) 100 Mg Capsule 100 Mg PO DAILY Amlodipine Besylate 10 Mg Tablet 10 Mg PO DAILY Aspirin 81 Mg Tab.chew 81 Mg PO DAILY Clonazepam 0.5 Mg Tablet 0.25 Mg PO BID I have reviewed the current psychotropics carefully including drug interactions. Risk benefit ratio favors no change other than as noted in my dictated progress note. Diagnosis: Problems: (1) Anxiety disorder (2) Dementia in Alzheimer's disease with delusions (3) Dementia in Alzheimer's disease with depression (4) Dementia, vascular, with delusions (5) Dementia, vascular, with depression (6) Impulse control disorder GILDARDO CRAWFORD MD Nov 19, 2018 20:47
[2018-11-19] MEDS: DIVALPROEX ER 500 MG TAB.ER.24H PO SCH (21:30)
[2018-11-19] MEDS: MIRTAZAPINE 30 MG TABLET PO SCH (21:30)
--- NOTE | 2018-11-20 03:53 | PN ---
DATE: 11/17/2018 PSYCHIATRIC PROGRESS NOTE This late entry 11/17/2018 covers elements not covered in my initial note. SUBJECTIVE: I met with the patient in the evening and staffed at treatment team meeting with the entire team in the morning. The patient slept 6-1/4 hours previous night. He remains intermittently tearful, anxious. He is out on the patio disorganized, gets irritable, abrasive at times. reportedly is terminal per nursing report. He has been wandering, interactive, confused and compliant intermittently per nursing staff. REVIEW OF SYSTEMS: No CV, , pulmonary, eye, ENT system symptoms on review. Reliability poor. MENTAL STATUS EXAM: Oriented to himself. Insight, judgment, recent and remote memory, attention, concentration, fund of knowledge poor, consistent with his diagnoses mentioned in my initial note. PLAN: No change from initial note. ADDENDUM On further review of his psychotropics, we will go ahead and taper the Klonopin since it could be causing paradoxical disinhibition. He is currently on 0.25 mg b.i.d., we will reduce to once a day for 3 days and then stop. Depakote delayed release is 750 mg daily. Valproic acid level subtherapeutic at 22. We will increase Depakote to Depakote extended release 1 gram p.o. at bedtime. Check CBC, CMP, valproic acid level in 3 days. PLAN: Maintain Remeron 30 mg at bedtime; Exelon patch 9.5 mg a day; start Zoloft 25 mg a day for 3 days, then 50 mg a day thereafter. MAN Jennifer CRAWFORD MD DR: INOCENCIO/karli JOB#: [id number] / [id number]
--- NOTE | 2018-11-20 04:12 | PN ---
DATE: 11/18/2018 PSYCHIATRIC PROGRESS NOTE This late entry of 11/18/2018 covers elements not covered in my initial note. SUBJECTIVE: I met with the patient in the evening. The patient has done a little better, at times a little more compliant with medications, but states he is not a patient here. REVIEW OF SYSTEMS: No CV, , pulmonary, eye, ENT system symptoms on review. Reliability poor. MENTAL STATUS EXAM: Oriented to himself. Insight, judgment, recent and remote memory, attention, concentration, fund of knowledge poor consistent with his diagnosis mentioned in my initial note. PLAN: Klonopin is being tapered and stopped. Adjust the Depakote to reach therapeutic level. I increased to Depakote ER 1 g at bedtime. Check CBC, CMP, valproic acid level in 3 days. Start Zoloft 25 mg a day for 3 days, then 50 mg a day after that. At times, he has made vague some statements that he did not want to keep living if things did not get better. Denies active suicidal ideation. Plan as noted above. MAN Jennifer CRAWFORD MD DR: INOCENCIO/karli JOB#: [id number] / [id number]
[2018-11-20 06:11] VITALS: BP 125/75
[2018-11-20] MEDS: SERTRALINE 25 MG TABLET. PO SCH (08:21)
[2018-11-20] MEDS: amLODIPine BESYLATE 10 MG TABLET PO SCH (08:21)
[2018-11-20] MEDS: DOCUSATE SODIUM 100 MG CAPSULE PO SCH (08:22)
[2018-11-20] MEDS: clonazePAM 0.5 MG TABLET PO SCH (08:23)
[2018-11-20] MEDS: hydroCHLOROthiazide 12.5 MG CAPSULE PO SCH (08:23)
[2018-11-20] MEDS: SERTRALINE 50 MG TABLET. PO SCH (08:24)
[2018-11-20] MEDS: ASPIRIN 81 MG TAB.CHEW PO SCH (08:24)
[2018-11-20] MEDS: CARVEDILOL 3.125 MG TABLET PO SCH ×2 (08:24→17:00)
[2018-11-20] MEDS: CYANOCOBALAMIN (VITAMIN B-12) 1,000 MCG TABLET. PO SCH (08:25)
[2018-11-20] MEDS: RIVASTIGMINE 9.5MG PATCH. TD SCH (08:25)
[2018-11-20] MEDS: LORazepam 1 MG TABLET PO PRN (08:34)
--- NOTE | 2018-11-20 14:22 | PN ---
DATE: 11/19/2018 PSYCHIATRIC PROGRESS NOTE This late entry of 11/19/2018 covers elements not covered in my initial note. SUBJECTIVE: I met with the patient in the evening. The patient slept for 6-3/4 hours previous night. He remains confused, was extremely agitated, aggressive, the day before. Jeffry Lees had to be called due to his aggression. Received Ativan earlier in the day on 11/19/2018. Nursing staff had called me as an emergency due to his worsening agitation, mood lability. REVIEW OF SYSTEMS: No CV, , pulmonary, eye, ENT system symptoms on review. Reliability poor. MENTAL STATUS EXAM: Oriented to himself. Insight, judgment, recent and remote memory, attention, concentration, fund of knowledge poor, consistent with his diagnosis mentioned in my initial note. PLAN: Klonopin is being tapered to discontinue and he is on Zoloft, which is being increased and Depakote has been increased to reach therapeutic level, remains on Ativan p.r.n., Remeron and Exelon patch. Adjust further as clinically indicated. MAN Jennifer CRAWFORD MD DR: INOCENCIO/karli JOB#: [id number] / [id number]
[2018-11-20 15:54] VITALS: BP 121/71
[2018-11-20] MEDS: MIRTAZAPINE 30 MG TABLET PO SCH (20:05)
[2018-11-20] MEDS: DIVALPROEX ER 500 MG TAB.ER.24H PO SCH (20:05)
--- NOTE | 2018-11-20 22:49 | PDOC ---
Exam Note: Rex Note: Please also refer to the separate dictated note~for this date of service dictated separately.~Patient seen individually. Discussed the patient with Nursing staff reviewed the chart.~Reviewed interim history and current functioning. Reviewed vital signs,~Labs/ Radiology~and current medications noted below. Continue current treatment with the changes noted in the dictated addendum note Assessment: Vital Signs: Vital Signs Date Time Temp Pulse Resp B/P (MAP) Pulse Ox O2 Delivery O2 Flow Rate FiO2 11/20/18 17:00 74 121/71 11/20/18 15:54 98.6 20 95 11/19/18 16:40 Room Air I&O Intake and Output 11/20/18 07:00 Intake Total 960 ml Balance 960 ml Intake Oral 960 ml Current Medications: Meds: Current Medications Acetaminophen (Tylenol) 650 mg PRN Q6HRS PRN PO PAIN / TEMP; Start 11/14/18 at 20:00 Multi-Ingredient Ointment (Analgesic [place]) 1 zahida PRN QID PRN TP MUSCLE PAIN; Start 11/14/18 at 20:00 Al Hydroxide/Mg Hydroxide (Mylanta Plus Xs) 15 ml PRN AFTMEALHC PRN PO DYSPEPSIA; Start 11/14/18 at 20:00 Magnesium Hydroxide (Milk Of Magnesia) 2,400 mg PRN QHS PRN PO CONSTIPATION; Start 11/14/18 at 20:00 Clonazepam (KlonoPIN) 0.25 mg BID PO Last administered on 11/17/18at 08:17; Start 11/14/18 at 21:30; Stop 11/17/18 at 11:21; Status DC Mirtazapine (Remeron) 30 mg QHS PO Last administered on 11/20/18at 20:05; Start 11/14/18 at 21:30 Divalproex Sodium (Depakote Er) 250 mg DAILY PO Last administered on 11/17/18at 0 8:13; Start 11/15/18 at 09:00; Stop 11/17/18 at 11:21; Status DC Divalproex Sodium (Depakote Er) 500 mg DAILY PO Last administered on 11/17/18at 08:13; Start 11/15/18 at 09:00; Stop 11/17/18 at 11:27; Status DC Rivastigmine (Exelon) 1 patch DAILY TD Last administered on 11/20/18 08:25; Start 11/15/18 at 09:00 Cyanocobalamin (Vitamin B-12) 1,000 mcg DAILY PO Last administered on 11/20/18 08:25; Start 11/15/18 at 09:00 Hydrochlorothiazide (Microzide) 12.5 mg DAILY PO Last administered on 11/20/18 08:23; Start 11/15/18 at 09:00 Amlodipine Besylate (Norvasc) 10 mg DAILY PO Last administered on 11/20/18 08:21; Start 11/15/18 at 09:00 Aspirin (Children'S Aspirin) 81 mg DAILY PO Last administered on 11/20/18 08:24; Start 11/15/18 at 09:00 Carvedilol (Coreg) 3.125 mg BIDWMEALS PO Last administered on 11/20/18 17:00; Start 11/15/18 at 08:00 Docusate Sodium (Colace) 100 mg DAILY PO Last administered on 11/20/18 08:22; Start 11/15/18 at 09:00 Olanzapine (ZyPREXA ZYDIS) 2.5 mg PRN Q2HR PRN PO PSYCHOSIS Last administered on 11/20/18 17:56; Start 11/15/18 at 23:30 Clonazepam (KlonoPIN) 0.25 mg DAILY PO Last administered on 11/20/18 08:23; Start 11/18/18 at 09:00; Stop 11/20/18 at 12:00; Status DC Divalproex Sodium (Depakote Er) 1,000 mg HS PO Last administered on 11/20/18 20:05; Start 11/18/18 at 21:00 Sertraline HCl (Zoloft) 25 mg DAILY PO Last administered on 11/20/18 08:21; Start 11/18/18 at 09:00; Stop 11/20/18 at 12:00; Status DC Sertraline HCl (Zoloft) 50 mg DAILY PO Last administered on 11/20/18 08:24; Start 11/18/18 at 09:00 Lorazepam (Ativan) 1 mg TID PRN PRN PO ANXIETY / AGITATION Last administered on 6/9/19at 08:34; Start 11/17/18 at 16:45 Active Scripts Active Reported Vitamin B-12 (Cyanocobalamin (Vitamin B-12)) 1,000 Mcg Tablet 1,000 Mcg PO DAILY Remeron (Mirtazapine) 30 Mg Tablet 30 Mg PO QHS Hydrochlorothiazide Capsule (Hydrochlorothiazide) 12.5 Mg Capsule 12.5 Mg PO DAILY EXELON 9.5mg/24hr (Rivastigmine) 1 Each Patch.td24 1 Patch TD DAILY Depakote Er (Divalproex Sodium) 500 Mg Tab.er.24h 500 Mg PO DAILY Depakote Er (Divalproex Sodium) 250 Mg Tab.er.24h 250 Mg PO DAILY Coreg (Carvedilol) 3.125 Mg Tablet 3.125 Mg PO BIDWMEALS Colace (Docusate Sodium) 100 Mg Capsule 100 Mg PO DAILY Amlodipine Besylate 10 Mg Tablet 10 Mg PO DAILY Aspirin 81 Mg Tab.chew 81 Mg PO DAILY Clonazepam 0.5 Mg Tablet 0.25 Mg PO BID I have reviewed the current psychotropics carefully including drug interactions. Risk benefit ratio favors no change other than as noted in my dictated progress note. Diagnosis: Problems: (1) Anxiety disorder (2) Dementia in Alzheimer's disease with delusions (3) Dementia in Alzheimer's disease with depression (4) Dementia, vascular, with delusions (5) Dementia, vascular, with depression (6) Impulse control disorder GILDARDO CRAWFORD MD Nov 20, 2018 22:49
[2018-11-21 07:34] LABS: BASO % 1 % (0-3); EOS # 0.1 x10^3/uL (0.0-0.7); EOS % 2 % (0-3); HEMATOCRIT 40.7 % (39.0-53.0); HEMOGLOBIN 14.3 g/dL (13.0-17.5); LYMPH # 1.8 x10^3/uL (1.0-4.8); LYMPH % 20 % (24-48); MEAN CORPUSCULAR HEMOGLOBIN 33 pg (25-35); MEAN CORPUSCULAR HGB CONC 35 g/dL (31-37); MEAN CORPUSCULAR VOLUME 94 fL (79-100); MONO # 0.9 x10^3/uL (0.0-1.1); MONO % 11 % (0-9); NEUT # 5.8 x10^3uL (1.8-7.7); NEUT % 67 % (31-73); PLATELET COUNT 227 x10^3/uL (140-400); RED BLOOD COUNT 4.31 x10^6/uL (4.30-5.70); WHITE BLOOD COUNT 8.7 x10^3/uL (4.0-11.0)
[2018-11-21 07:47] LABS: ALBUMIN 3.3 g/dL (3.4-5.0); ALBUMIN/GLOBULIN RATIO 0.9 (1.0-1.7); ALK PHOS 52 U/L (46-116); ALT (SGPT) 28 U/L (16-63); ANION GAP 7 (6-14); AST (SGOT) 16 U/L (15-37); BLOOD UREA NITROGEN 21 mg/dL (8-26); BUN/CREATININE RATIO 15 (6-20); CARBON DIOXIDE 28 mmol/L (21-32); CHLORIDE 105 mmol/L (98-107); CREATININE 1.4 mg/dL (0.7-1.3); GFR 48.9; GLUCOSE 95 mg/dL (70-99); SODIUM 140 mmol/L (136-145); TOTAL BILIRUBIN 0.4 mg/dL (0.2-1.0); TOTAL PROTEIN 7.1 g/dL (6.4-8.2)
[2018-11-21 07:49] LABS: VAL ACID 24 mcg/mL (50-100)
[2018-11-21] MEDS: hydroCHLOROthiazide 12.5 MG CAPSULE PO SCH (07:58)
[2018-11-21] MEDS: CARVEDILOL 3.125 MG TABLET PO SCH ×2 (07:58→17:00)
[2018-11-21] MEDS: ASPIRIN 81 MG TAB.CHEW PO SCH (07:58)
[2018-11-21] MEDS: DOCUSATE SODIUM 100 MG CAPSULE PO SCH (07:58)
[2018-11-21] MEDS: amLODIPine BESYLATE 10 MG TABLET PO SCH (07:59)
[2018-11-21] MEDS: RIVASTIGMINE 9.5MG PATCH. TD SCH (07:59)
[2018-11-21] MEDS: CYANOCOBALAMIN (VITAMIN B-12) 1,000 MCG TABLET. PO SCH (07:59)
[2018-11-21] MEDS: SERTRALINE 50 MG TABLET. PO SCH (07:59)
--- NOTE | 2018-11-21 12:14 | PN ---
DATE: 11/20/2018 PSYCHIATRIC PROGRESS NOTE This late entry of 11/20/2018 covers elements not covered in my initial note. SUBJECTIVE: I met with the patient in the evening. The patient slept 6-1/4 hours previous night. He remains confused, exit seeking, follows another demented patient around the unit, was anxious, agitated at breakfast, received Ativan; agitated and paranoid at dinnertime, received Zyprexa p.r.n. REVIEW OF SYSTEMS: No CV, , pulmonary, eye, ENT system symptoms on review. Reliability poor. MENTAL STATUS EXAM: Oriented to himself. Insight, judgment, recent and remote memory, attention, concentration, fund of knowledge poor, consistent with his diagnoses mentioned in my initial note. PLAN: No change from initial note. MAN Jennifer CRAWFORD MD DR: INOCENCIO/karli JOB#: [id number] / [id number]
[2018-11-21] MEDS: LORazepam 1 MG TABLET PO PRN (14:14)
[2018-11-21 15:49] VITALS: BP 138/81
[2018-11-21] MEDS: MIRTAZAPINE 30 MG TABLET PO SCH (20:00)
[2018-11-21] MEDS: DIVALPROEX ER 500 MG TAB.ER.24H PO SCH (20:00)
--- NOTE | 2018-11-21 22:41 | PDOC ---
Exam Note: Rex Note: Please also refer to the separate dictated note~for this date of service dictated separately.~Patient seen individually. Discussed the patient with Nursing staff reviewed the chart.~Reviewed interim history and current functioning. Reviewed vital signs,~Labs/ Radiology~and current medications noted below. Continue current treatment with the changes noted in the dictated addendum note Assessment: Vital Signs: Vital Signs Date Time Temp Pulse Resp B/P (MAP) Pulse Ox O2 Delivery O2 Flow Rate FiO2 11/21/18 17:00 67 138/81 11/21/18 15:49 97.6 18 98 11/19/18 16:40 Room Air I&O Intake and Output 11/21/18 07:00 Intake Total 1080 ml Balance 1080 ml Intake Oral 1080 ml Labs: Laboratory Tests Test 11/21/18 07:00 White Blood Count 8.7 x10^3/uL (4.0-11.0) Red Blood Count 4.31 x10^6/uL (4.30-5.70) Hemoglobin 14.3 g/dL (13.0-17.5) Hematocrit 40.7 % (39.0-53.0) Mean Corpuscular Volume 94 fL (79-100) Mean Corpuscular Hemoglobin 33 pg (25-35) Mean Corpuscular Hemoglobin Concent 35 g/dL (31-37) Red Cell Distribution Width 13.0 % (11.5-14.5) Platelet Count 227 x10^3/uL (140-400) Neutrophils (%) (Auto) 67 % (31-73) Lymphocytes (%) (Auto) 20 % (24-48) L Monocytes (%) (Auto) 11 % (0-9) H Eosinophils (%) (Auto) 2 % (0-3) Basophils (%) (Auto) 1 % (0-3) Neutrophils # (Auto) 5.8 x10^3uL (1.8-7.7) Lymphocytes # (Auto) 1.8 x10^3/uL (1.0-4.8) Monocytes # (Auto) 0.9 x10^3/uL (0.0-1.1) Eosinophils # (Auto) 0.1 x10^3/uL (0.0-0.7) Basophils # (Auto) 0.0 x10^3/uL (0.0-0.2) Sodium Level 140 mmol/L (136-145) Potassium Level 4.0 mmol/L (3.5-5.1) Chloride Level 105 mmol/L (98-107) Carbon Dioxide Level 28 mmol/L (21-32) Anion Gap 7 (6-14) Blood Urea Nitrogen 21 mg/dL (8-26) Creatinine 1.4 mg/dL (0.7-1.3) H Estimated GFR (Cockcroft-Gault) 48.9 BUN/Creatinine Ratio 15 (6-20) Glucose Level 95 mg/dL (70-99) Calcium Level 9.0 mg/dL (8.5-10.1) Total Bilirubin 0.4 mg/dL (0.2-1.0) Aspartate Amino Transferase (AST) 16 U/L (15-37) Alanine Aminotransferase (ALT) 28 U/L (16-63) Alkaline Phosphatase 52 U/L (46-116) Total Protein 7.1 g/dL (6.4-8.2) Albumin 3.3 g/dL (3.4-5.0) L Albumin/Globulin Ratio 0.9 (1.0-1.7) L Valproic Acid Level 24 mcg/mL (50-100) L Valproic Acid Last Dose Date 11/20/18 Valproic Acid Last Dose Time 2100 Current Medications: Meds: Current Medications Acetaminophen (Tylenol) 650 mg PRN Q6HRS PRN PO PAIN / TEMP; Start 11/14/18 at 20:00 Multi-Ingredient Ointment (Analgesic [place]) 1 zahida PRN QID PRN TP MUSCLE PAIN; Start 11/14/18 at 20:00 Al Hydroxide/Mg Hydroxide (Mylanta Plus Xs) 15 ml PRN AFTMEALHC PRN PO DYSPEPSIA; Start 11/14/18 at 20:00 Magnesium Hydroxide (Milk Of Magnesia) 2,400 mg PRN QHS PRN PO CONSTIPATION; Start 11/14/18 at 20:00 Clonazepam (KlonoPIN) 0.25 mg BID PO Last administered on 11/17/18at 08:17; Start 11/14/18 at 21:30; Stop 11/17/18 at 11:21; Status DC Mirtazapine (Remeron) 30 mg QHS PO Last administered on 11/21/18at 20:00; Start 11/14/18 at 21:30 Divalproex Sodium (Depakote Er) 250 mg DAILY PO Last administered on 11/17/18 08:13; Start 11/15/18 at 09:00; Stop 11/17/18 at 11:21; Status DC Divalproex Sodium (Depakote Er) 500 mg DAILY PO Last administered on 11/17/18 08:13; Start 11/15/18 at 09:00; Stop 11/17/18 at 11:27; Status DC Rivastigmine (Exelon) 1 patch DAILY TD Last administered on 11/21/18 07:59; Start 11/15/18 at 09:00 Cyanocobalamin (Vitamin B-12) 1,000 mcg DAILY PO Last administered on 11/21/18 07:59; Start 11/15/18 at 09:00 Hydrochlorothiazide (Microzide) 12.5 mg DAILY PO Last administered on 11/21/18 07:58; Start 11/15/18 at 09:00 Amlodipine Besylate (Norvasc) 10 mg DAILY PO Last administered on 11/21/18 07:59; Start 11/15/18 at 09:00 Aspirin (Children'S Aspirin) 81 mg DAILY PO Last administered on 11/21/18 07:58; Start 11/15/18 at 09:00 Carvedilol (Coreg) 3.125 mg BIDWMEALS PO Last administered on 11/21/18 17:00; Start 11/15/18 at 08:00 Docusate Sodium (Colace) 100 mg DAILY PO Last administered on 11/21/18 07:58; Start 11/15/18 at 09:00 Olanzapine (ZyPREXA ZYDIS) 2.5 mg PRN Q2HR PRN PO PSYCHOSIS Last administered on 11/21/18 09:30; Start 11/15/18 at 23:30 Clonazepam (KlonoPIN) 0.25 mg DAILY PO Last administered on 11/20/18 08:23; Start 11/18/18 at 09:00; Stop 11/20/18 at 12:00; Status DC Divalproex Sodium (Depakote Er) 1,000 mg HS PO Last administered on 11/20/18 20:05; Start 11/18/18 at 21:00; Stop 11/21/18 at 16:41; Status DC Sertraline HCl (Zoloft) 25 mg DAILY PO Last administered on 11/20/18at 08:21; Start 11/18/18 at 09:00; Stop 11/20/18 at 12:00; Status DC Sertraline HCl (Zoloft) 50 mg DAILY PO Last administered on 11/21/18at 07:59; Start 11/18/18 at 09:00 Lorazepam (Ativan) 1 mg TID PRN PRN PO ANXIETY / AGITATION Last administered on 11/21/18at 14:14; Start 11/17/18 at 16:45 Divalproex Sodium (Depakote Er) 1,500 mg HS PO Last administered on 11/21/18at 20:00; Start 11/21/18 at 21:00 Active Scripts Active Reported Vitamin B-12 (Cyanocobalamin (Vitamin B-12)) 1,000 Mcg Tablet 1,000 Mcg PO DAILY Remeron (Mirtazapine) 30 Mg Tablet 30 Mg PO QHS Hydrochlorothiazide Capsule (Hydrochlorothiazide) 12.5 Mg Capsule 12.5 Mg PO DAILY EXELON 9.5mg/24hr (Rivastigmine) 1 Each Patch.td24 1 Patch TD DAILY Depakote Er (Divalproex Sodium) 500 Mg Tab.er.24h 500 Mg PO DAILY Depakote Er (Divalproex Sodium) 250 Mg Tab.er.24h 250 Mg PO DAILY Coreg (Carvedilol) 3.125 Mg Tablet 3.125 Mg PO BIDWMEALS Colace (Docusate Sodium) 100 Mg Capsule 100 Mg PO DAILY Amlodipine Besylate 10 Mg Tablet 10 Mg PO DAILY Aspirin 81 Mg Tab.chew 81 Mg PO DAILY Clonazepam 0.5 Mg Tablet 0.25 Mg PO BID I have reviewed the current psychotropics carefully including drug interactions. Risk benefit ratio favors no change other than as noted in my dictated progress note. Diagnosis: Problems: (1) Anxiety disorder (2) Dementia in Alzheimer's disease with delusions (3) Dementia in Alzheimer's disease with depression (4) Dementia, vascular, with delusions (5) Dementia, vascular, with depression (6) Impulse control disorder GILDARDO CRAWFORD MD Nov 21, 2018 22:41
[2018-11-22 05:46] VITALS: BP 148/76
[2018-11-22] MEDS: ASPIRIN 81 MG TAB.CHEW PO SCH (07:28)
[2018-11-22] MEDS: CARVEDILOL 3.125 MG TABLET PO SCH ×2 (07:28→17:06)
[2018-11-22] MEDS: SERTRALINE 50 MG TABLET. PO SCH (07:29)
[2018-11-22] MEDS: amLODIPine BESYLATE 10 MG TABLET PO SCH (07:29)
[2018-11-22] MEDS: DOCUSATE SODIUM 100 MG CAPSULE PO SCH (07:29)
[2018-11-22] MEDS: hydroCHLOROthiazide 12.5 MG CAPSULE PO SCH (07:29)
[2018-11-22] MEDS: CYANOCOBALAMIN (VITAMIN B-12) 1,000 MCG TABLET. PO SCH (07:29)
[2018-11-22] MEDS: RIVASTIGMINE 9.5MG PATCH. TD SCH (07:30)
[2018-11-22 16:37] VITALS: BP 129/73
[2018-11-22] MEDS: DIVALPROEX ER 500 MG TAB.ER.24H PO SCH (19:28)
[2018-11-22] MEDS: MIRTAZAPINE 30 MG TABLET PO SCH (19:28)
--- NOTE | 2018-11-22 22:47 | PDOC ---
Exam Note: Rex Note: Please also refer to the separate dictated note~for this date of service dictated separately.~Patient seen individually. Discussed the patient with Nursing staff reviewed the chart.~Reviewed interim history and current functioning. Reviewed vital signs,~Labs/ Radiology~and current medications noted below. Continue current treatment with the changes noted in the dictated addendum note Assessment: Vital Signs: Vital Signs Date Time Temp Pulse Resp B/P (MAP) Pulse Ox O2 Delivery O2 Flow Rate FiO2 11/22/18 17:06 63 129/73 11/22/18 16:37 97.7 16 96 11/19/18 16:40 Room Air I&O Intake and Output 11/22/18 07:00 Intake Total 960 ml Balance 960 ml Intake Oral 960 ml Current Medications: Meds: Current Medications Acetaminophen (Tylenol) 650 mg PRN Q6HRS PRN PO PAIN / TEMP; Start 11/14/18 at 20:00 Multi-Ingredient Ointment (Analgesic [place]) 1 zahida PRN QID PRN TP MUSCLE PAIN; Start 11/14/18 at 20:00 Al Hydroxide/Mg Hydroxide (Mylanta Plus Xs) 15 ml PRN AFTMEALHC PRN PO DYSPEPSIA; Start 11/14/18 at 20:00 Magnesium Hydroxide (Milk Of Magnesia) 2,400 mg PRN QHS PRN PO CONSTIPATION; Start 11/14/18 at 20:00 Clonazepam (KlonoPIN) 0.25 mg BID PO Last administered on 11/17/18at 08:17; Start 11/14/18 at 21:30; Stop 11/17/18 at 11:21; Status DC Mirtazapine (Remeron) 30 mg QHS PO Last administered on 11/22/18at 19:28; Start 11/14/18 at 21:30 Divalproex Sodium (Depakote Er) 250 mg DAILY PO Last administered on 11/17/18at 08:13; Start 11/15/18 at 09:00; Stop 11/17/18 at 11:21; Status DC Divalproex Sodium (Depakote Er) 500 mg DAILY PO Last administered on 11/17/18at 08:13; Start 11/15/18 at 09:00; Stop 11/17/18 at 11:27; Status DC Rivastigmine (Exelon) 1 patch DAILY TD Last administered on 11/22/18 07:30; Start 11/15/18 at 09:00 Cyanocobalamin (Vitamin B-12) 1,000 mcg DAILY PO Last administered on 11/22/18 07:29; Start 11/15/18 at 09:00 Hydrochlorothiazide (Microzide) 12.5 mg DAILY PO Last administered on 11/22/18 07:29; Start 11/15/18 at 09:00 Amlodipine Besylate (Norvasc) 10 mg DAILY PO Last administered on 11/22/18 07:29; Start 11/15/18 at 09:00 Aspirin (Children'S Aspirin) 81 mg DAILY PO Last administered on 11/22/18 07:28; Start 11/15/18 at 09:00 Carvedilol (Coreg) 3.125 mg BIDWMEALS PO Last administered on 11/22/18 17:06; Start 11/15/18 at 08:00 Docusate Sodium (Colace) 100 mg DAILY PO Last administered on 11/22/18 07:29; Start 11/15/18 at 09:00 Olanzapine (ZyPREXA ZYDIS) 2.5 mg PRN Q2HR PRN PO PSYCHOSIS Last administered on 11/21/18 09:30; Start 11/15/18 at 23:30 Clonazepam (KlonoPIN) 0.25 mg DAILY PO Last administered on 11/20/18 08:23; Start 11/18/18 at 09:00; Stop 11/20/18 at 12:00; Status DC Divalproex Sodium (Depakote Er) 1,000 mg HS PO Last administered on 11/20/18 20:05; Start 11/18/18 at 21:00; Stop 11/21/18 at 16:41; Status DC Sertraline HCl (Zoloft) 25 mg DAILY PO Last administered on 11/20/18 08:21; Start 11/18/18 at 09:00; Stop 11/20/18 at 12:00; Status DC Sertraline HCl (Zoloft) 50 mg DAILY PO Last administered on 11/22/18 07:29; Start 11/18/18 at 09:00 Lorazepam (Ativan) 1 mg TID PRN PRN PO ANXIETY / AGITATION Last administered on 11/21/18at 14:14; Start 11/17/18 at 16:45 Divalproex Sodium (Depakote Er) 1,500 mg HS PO Last administered on 11/22/18at 1 9:28; Start 11/21/18 at 21:00 Active Scripts Active Reported Vitamin B-12 (Cyanocobalamin (Vitamin B-12)) 1,000 Mcg Tablet 1,000 Mcg PO DAILY Remeron (Mirtazapine) 30 Mg Tablet 30 Mg PO QHS Hydrochlorothiazide Capsule (Hydrochlorothiazide) 12.5 Mg Capsule 12.5 Mg PO DAILY EXELON 9.5mg/24hr (Rivastigmine) 1 Each Patch.td24 1 Patch TD DAILY Depakote Er (Divalproex Sodium) 500 Mg Tab.er.24h 500 Mg PO DAILY Depakote Er (Divalproex Sodium) 250 Mg Tab.er.24h 250 Mg PO DAILY Coreg (Carvedilol) 3.125 Mg Tablet 3.125 Mg PO BIDWMEALS Colace (Docusate Sodium) 100 Mg Capsule 100 Mg PO DAILY Amlodipine Besylate 10 Mg Tablet 10 Mg PO DAILY Aspirin 81 Mg Tab.chew 81 Mg PO DAILY Clonazepam 0.5 Mg Tablet 0.25 Mg PO BID I have reviewed the current psychotropics carefully including drug interactions. Risk benefit ratio favors no change other than as noted in my dictated progress note. Diagnosis: Problems: (1) Anxiety disorder (2) Dementia in Alzheimer's disease with delusions (3) Dementia in Alzheimer's disease with depression (4) Dementia, vascular, with delusions (5) Dementia, vascular, with depression (6) Impulse control disorder GILDARDO CRAWFORD MD Nov 22, 2018 22:47
--- NOTE | 2018-11-23 05:24 | PN ---
DATE: 11/21/2018 PSYCHIATRIC PROGRESS NOTE This late entry 11/21/2018 covers elements, not covered in my initial note. SUBJECTIVE: I met with the patient in the evening of 11/21/2018. The patient slept 1-3/4 hours previous night. Per nursing staff, he has had a "rough day." In the morning, he was insistent that he was taking one of the other female patients on the unit to [place] since the flight was all booked. He has been anxious, restless, paranoid, received Zyprexa 2.5 mg at 9:30 a.m., then did better. At around 2:15 p.m., he was kissing this other female patient on the lips and said he had given her money to travel to [place] with him. He received Ativan p.r.n. Later while on the patio, he tried to move the chairs and moving furniture tried to climb the fence. Valproic acid level is 24 on Depakote ER 1000 mg p.o. at bedtime. REVIEW OF SYSTEMS: No CV, , pulmonary, eye, ENT system symptoms on review. Reliability poor. MENTAL STATUS EXAM: Oriented to himself. Insight, judgment, recent and remote memory, attention, concentration, fund of knowledge poor, consistent with his diagnosis mentioned in my initial note. IMPRESSION: Major neurocognitive disorder, Alzheimer, vascular with delusion, depression, behavioral disturbance; anxiety disorder, unspecified; impulse control disorder, unspecified. Rest unchanged. PLAN: Increase Depakote ER to 1500 mg p.o. at bedtime. Check CBC, CMP, valproic acid level, ammonia level in 3 days. Continue rest psychotropics unchanged for now. MAN Jennifer CRAWFORD MD DR: INOCENCIO/karli JOB#: [id number] / [id number]
[2018-11-23 06:01] VITALS: BP 106/66
[2018-11-23] MEDS: CARVEDILOL 3.125 MG TABLET PO SCH ×2 (08:05→16:57)
[2018-11-23] MEDS: DOCUSATE SODIUM 100 MG CAPSULE PO SCH (08:06)
[2018-11-23] MEDS: CYANOCOBALAMIN (VITAMIN B-12) 1,000 MCG TABLET. PO SCH (08:06)
[2018-11-23] MEDS: amLODIPine BESYLATE 10 MG TABLET PO SCH (08:06)
[2018-11-23] MEDS: hydroCHLOROthiazide 12.5 MG CAPSULE PO SCH (08:06)
[2018-11-23] MEDS: ASPIRIN 81 MG TAB.CHEW PO SCH (08:06)
[2018-11-23] MEDS: RIVASTIGMINE 9.5MG PATCH. TD SCH (08:07)
[2018-11-23] MEDS: SERTRALINE 50 MG TABLET. PO SCH (08:07)
[2018-11-23 15:46] VITALS: BP 150/74
[2018-11-23] MEDS: LORazepam 1 MG TABLET PO PRN (17:57)
[2018-11-23] MEDS: MIRTAZAPINE 30 MG TABLET PO SCH (19:57)
[2018-11-23] MEDS: DIVALPROEX ER 500 MG TAB.ER.24H PO SCH (19:57)
--- NOTE | 2018-11-23 23:05 | PDOC ---
Exam Note: Rex Note: Please also refer to the separate dictated note~for this date of service dictated separately.~Patient seen individually. Discussed the patient with Nursing staff reviewed the chart.~Reviewed interim history and current functioning. Reviewed vital signs,~Labs/ Radiology~and current medications noted below. Continue current treatment with the changes noted in the dictated addendum note Assessment: Vital Signs: Vital Signs Date Time Temp Pulse Resp B/P (MAP) Pulse Ox O2 Delivery O2 Flow Rate FiO2 11/23/18 16:57 66 150/74 11/23/18 15:46 98.3 20 96 11/19/18 16:40 Room Air I&O Intake and Output 11/23/18 06:59 Intake Total 1320 ml Balance 1320 ml Intake Oral 1320 ml Current Medications: Meds: Current Medications Acetaminophen (Tylenol) 650 mg PRN Q6HRS PRN PO PAIN / TEMP; Start 11/14/18 at 20:00 Multi-Ingredient Ointment (Analgesic [place]) 1 zahida PRN QID PRN TP MUSCLE PAIN; Start 11/14/18 at 20:00 Al Hydroxide/Mg Hydroxide (Mylanta Plus Xs) 15 ml PRN AFTMEALHC PRN PO DYSPEPSIA; Start 11/14/18 at 20:00 Magnesium Hydroxide (Milk Of Magnesia) 2,400 mg PRN QHS PRN PO CONSTIPATION; Start 11/14/18 at 20:00 Clonazepam (KlonoPIN) 0.25 mg BID PO Last administered on 11/17/18at 08:17; Start 11/14/18 at 21:30; Stop 11/17/18 at 11:21; Status DC Mirtazapine (Remeron) 30 mg QHS PO Last administered on 11/23/18at 19:57; Start 11/14/18 at 21:30 Divalproex Sodium (Depakote Er) 250 mg DAILY PO Last administered on 11/17/18at 08:13; Start 11/15/18 at 09:00; Stop 11/17/18 at 11:21; Status DC Divalproex Sodium (Depakote Er) 500 mg DAILY PO Last administered on 11/17/18at 08:13; Start 11/15/18 at 09:00; Stop 11/17/18 at 11:27; Status DC Rivastigmine (Exelon) 1 patch DAILY TD Last administered on 11/23/18 08:07; Start 11/15/18 at 09:00 Cyanocobalamin (Vitamin B-12) 1,000 mcg DAILY PO Last administered on 11/23/18 08:06; Start 11/15/18 at 09:00 Hydrochlorothiazide (Microzide) 12.5 mg DAILY PO Last administered on 11/23/18 08:06; Start 11/15/18 at 09:00 Amlodipine Besylate (Norvasc) 10 mg DAILY PO Last administered on 11/23/18 08:06; Start 11/15/18 at 09:00 Aspirin (Children'S Aspirin) 81 mg DAILY PO Last administered on 11/23/18 08:06; Start 11/15/18 at 09:00 Carvedilol (Coreg) 3.125 mg BIDWMEALS PO Last administered on 11/23/18 16:57; Start 11/15/18 at 08:00 Docusate Sodium (Colace) 100 mg DAILY PO Last administered on 11/23/18 08:06; Start 11/15/18 at 09:00 Olanzapine (ZyPREXA ZYDIS) 2.5 mg PRN Q2HR PRN PO PSYCHOSIS Last administered on 11/23/18 17:56; Start 11/15/18 at 23:30 Clonazepam (KlonoPIN) 0.25 mg DAILY PO Last administered on 11/20/18 08:23; Start 11/18/18 at 09:00; Stop 11/20/18 at 12:00; Status DC Divalproex Sodium (Depakote Er) 1,000 mg HS PO Last administered on 11/20/18 20:05; Start 11/18/18 at 21:00; Stop 11/21/18 at 16:41; Status DC Sertraline HCl (Zoloft) 25 mg DAILY PO Last administered on 11/20/18 08:21; Start 11/18/18 at 09:00; Stop 11/20/18 at 12:00; Status DC Sertraline HCl (Zoloft) 50 mg DAILY PO Last administered on 11/23/18 08:07; Start 11/18/18 at 09:00 Lorazepam (Ativan) 1 mg TID PRN PRN PO ANXIETY / AGITATION Last administered on 11/23/18at 17:57; Start 11/17/18 at 16:45 Divalproex Sodium (Depakote Er) 1,500 mg HS PO Last administered on 11/23/18at 19:57; Start 11/21/18 at 21:00 Active Scripts Active Reported Vitamin B-12 (Cyanocobalamin (Vitamin B-12)) 1,000 Mcg Tablet 1,000 Mcg PO DAILY Remeron (Mirtazapine) 30 Mg Tablet 30 Mg PO QHS Hydrochlorothiazide Capsule (Hydrochlorothiazide) 12.5 Mg Capsule 12.5 Mg PO DAILY EXELON 9.5mg/24hr (Rivastigmine) 1 Each Patch.td24 1 Patch TD DAILY Depakote Er (Divalproex Sodium) 500 Mg Tab.er.24h 500 Mg PO DAILY Depakote Er (Divalproex Sodium) 250 Mg Tab.er.24h 250 Mg PO DAILY Coreg (Carvedilol) 3.125 Mg Tablet 3.125 Mg PO BIDWMEALS Colace (Docusate Sodium) 100 Mg Capsule 100 Mg PO DAILY Amlodipine Besylate 10 Mg Tablet 10 Mg PO DAILY Aspirin 81 Mg Tab.chew 81 Mg PO DAILY Clonazepam 0.5 Mg Tablet 0.25 Mg PO BID I have reviewed the current psychotropics carefully including drug interactions. Risk benefit ratio favors no change other than as noted in my dictated progress note. Diagnosis: Problems: (1) Anxiety disorder (2) Dementia in Alzheimer's disease with delusions (3) Dementia in Alzheimer's disease with depression (4) Dementia, vascular, with delusions (5) Dementia, vascular, with depression (6) Impulse control disorder GILDARDO CRAWFORD MD Nov 23, 2018 23:05
[2018-11-24 05:57] VITALS: BP 131/71
--- NOTE | 2018-11-24 06:08 | PN ---
DATE: 11/22/2018 PSYCHIATRIC PROGRESS NOTE This late entry 11/22/2018 covers elements not covered in my initial note. SUBJECTIVE: I met with the patient in the evening. The patient slept 7 hours previous night. He has had no outbursts. No PRNs have been given. He is more redirectable. REVIEW OF SYSTEMS: No CV, , pulmonary, eye, ENT system symptoms on review. Reliability poor. MENTAL STATUS EXAM: Oriented to himself. Insight and judgment, recent and remote memory, attention and concentration, fund of knowledge poor consistent with his diagnosis mentioned in my initial note. PLAN: No change from initial note. MAN Jennifer CRAWFORD MD DR: INOCENCIO/karil JOB#: [id number] / [id number]
[2018-11-24 08:02] LABS: BASO # 0.1 x10^3/uL (0.0-0.2); BASO % 1 % (0-3); EOS # 0.2 x10^3/uL (0.0-0.7); EOS % 3 % (0-3); HEMATOCRIT 43.7 % (39.0-53.0); LYMPH # 1.7 x10^3/uL (1.0-4.8); LYMPH % 29 % (24-48); MEAN CORPUSCULAR HEMOGLOBIN 33 pg (25-35); MEAN CORPUSCULAR HGB CONC 34 g/dL (31-37); MEAN CORPUSCULAR VOLUME 95 fL (79-100); MONO # 0.7 x10^3/uL (0.0-1.1); MONO % 11 % (0-9); NEUT # 3.2 x10^3uL (1.8-7.7); NEUT % 55 % (31-73); PLATELET COUNT 216 x10^3/uL (140-400); RED BLOOD COUNT 4.58 x10^6/uL (4.30-5.70); RED CELL DISTRIBUTION WIDTH 12.9 % (11.5-14.5); WHITE BLOOD COUNT 5.8 x10^3/uL (4.0-11.0)
[2018-11-24 08:10] LABS: ALBUMIN 3.3 g/dL (3.4-5.0); ALBUMIN/GLOBULIN RATIO 0.8 (1.0-1.7); ALK PHOS 52 U/L (46-116); ALT (SGPT) 27 U/L (16-63); ANION GAP 8 (6-14); AST (SGOT) 15 U/L (15-37); BLOOD UREA NITROGEN 24 mg/dL (8-26); BUN/CREATININE RATIO 17 (6-20); CALCIUM 9.2 mg/dL (8.5-10.1); CARBON DIOXIDE 32 mmol/L (21-32); CHLORIDE 101 mmol/L (98-107); CREATININE 1.4 mg/dL (0.7-1.3); GFR 48.9; GLUCOSE 90 mg/dL (70-99); POTASSIUM 3.9 mmol/L (3.5-5.1); SODIUM 141 mmol/L (136-145); TOTAL BILIRUBIN 0.5 mg/dL (0.2-1.0); TOTAL PROTEIN 7.3 g/dL (6.4-8.2)
[2018-11-24 08:14] LABS: VAL ACID 33 mcg/mL (50-100)
[2018-11-24] MEDS: SERTRALINE 50 MG TABLET. PO SCH (08:24)
[2018-11-24] MEDS: CYANOCOBALAMIN (VITAMIN B-12) 1,000 MCG TABLET. PO SCH (08:24)
[2018-11-24] MEDS: CARVEDILOL 3.125 MG TABLET PO SCH ×2 (08:24→17:26)
[2018-11-24] MEDS: ASPIRIN 81 MG TAB.CHEW PO SCH (08:24)
[2018-11-24] MEDS: hydroCHLOROthiazide 12.5 MG CAPSULE PO SCH (08:24)
[2018-11-24] MEDS: amLODIPine BESYLATE 10 MG TABLET PO SCH (08:24)
[2018-11-24] MEDS: DOCUSATE SODIUM 100 MG CAPSULE PO SCH (08:24)
[2018-11-24] MEDS: RIVASTIGMINE 9.5MG PATCH. TD SCH (08:25)
[2018-11-24] MEDS: LORazepam 1 MG TABLET PO PRN (12:53)
[2018-11-24 16:05] VITALS: BP 109/63
[2018-11-24] MEDS: MIRTAZAPINE 30 MG TABLET PO SCH (20:01)
[2018-11-24] MEDS: DIVALPROEX ER 500 MG TAB.ER.24H PO SCH (20:01)
--- NOTE | 2018-11-24 23:09 | PDOC ---
Exam Note: Rex Note: Please also refer to the separate dictated note~for this date of service dictated separately.~Patient seen individually. Discussed the patient with Nursing staff reviewed the chart.~Reviewed interim history and current functioning. Reviewed vital signs,~Labs/ Radiology~and current medications noted below. Continue current treatment with the changes noted in the dictated addendum note Assessment: Vital Signs: Vital Signs Date Time Temp Pulse Resp B/P (MAP) Pulse Ox O2 Delivery O2 Flow Rate FiO2 11/24/18 17:26 85 109/63 11/24/18 16:05 98.5 18 95 11/19/18 16:40 Room Air I&O Intake and Output 11/24/18 07:00 Intake Total 600 ml Balance 600 ml Intake Oral 600 ml Labs: Laboratory Tests Test 11/24/18 07:43 White Blood Count 5.8 x10^3/uL (4.0-11.0) Red Blood Count 4.58 x10^6/uL (4.30-5.70) Hemoglobin 15.0 g/dL (13.0-17.5) Hematocrit 43.7 % (39.0-53.0) Mean Corpuscular Volume 95 fL (79-100) Mean Corpuscular Hemoglobin 33 pg (25-35) Mean Corpuscular Hemoglobin Concent 34 g/dL (31-37) Red Cell Distribution Width 12.9 % (11.5-14.5) Platelet Count 216 x10^3/uL (140-400) Neutrophils (%) (Auto) 55 % (31-73) Lymphocytes (%) (Auto) 29 % (24-48) Monocytes (%) (Auto) 11 % (0-9) H Eosinophils (%) (Auto) 3 % (0-3) Basophils (%) (Auto) 1 % (0-3) Neutrophils # (Auto) 3.2 x10^3uL (1.8-7.7) Lymphocytes # (Auto) 1.7 x10^3/uL (1.0-4.8) Monocytes # (Auto) 0.7 x10^3/uL (0.0-1.1) Eosinophils # (Auto) 0.2 x10^3/uL (0.0-0.7) Basophils # (Auto) 0.1 x10^3/uL (0.0-0.2) Sodium Level 141 mmol/L (136-145) Potassium Level 3.9 mmol/L (3.5-5.1) Chloride Level 101 mmol/L (98-107) Carbon Dioxide Level 32 mmol/L (21-32) Anion Gap 8 (6-14) Blood Urea Nitrogen 24 mg/dL (8-26) Creatinine 1.4 mg/dL (0.7-1.3) H Estimated GFR (Cockcroft-Gault) 48.9 BUN/Creatinine Ratio 17 (6-20) Glucose Level 90 mg/dL (70-99) Calcium Level 9.2 mg/dL (8.5-10.1) Total Bilirubin 0.5 mg/dL (0.2-1.0) Aspartate Amino Transferase (AST) 15 U/L (15-37) Alanine Aminotransferase (ALT) 27 U/L (16-63) Alkaline Phosphatase 52 U/L (46-116) Ammonia < 10 mcmol/L (11-34) L Total Protein 7.3 g/dL (6.4-8.2) Albumin 3.3 g/dL (3.4-5.0) L Albumin/Globulin Ratio 0.8 (1.0-1.7) L Valproic Acid Level 33 mcg/mL (50-100) L Valproic Acid Last Dose Date 11/23/18 Valproic Acid Last Dose Time 2100 Current Medications: Meds: Current Medications Acetaminophen (Tylenol) 650 mg PRN Q6HRS PRN PO PAIN / TEMP; Start 11/14/18 at 20:00 Multi-Ingredient Ointment (Analgesic [place]) 1 zahida PRN QID PRN TP MUSCLE PAIN; Start 11/14/18 at 20:00 Al Hydroxide/Mg Hydroxide (Mylanta Plus Xs) 15 ml PRN AFTMEALHC PRN PO DYSPEPSIA; Start 11/14/18 at 20:00 Magnesium Hydroxide (Milk Of Magnesia) 2,400 mg PRN QHS PRN PO CONSTIPATION; Start 11/14/18 at 20:00 Clonazepam (KlonoPIN) 0.25 mg BID PO Last administered on 11/17/18at 08:17; Start 11/14/18 at 21:30; Stop 11/17/18 at 11:21; Status DC Mirtazapine (Remeron) 30 mg QHS PO Last administered on 11/24/18 20:01; Start 11/14/18 at 21:30 Divalproex Sodium (Depakote Er) 250 mg DAILY PO Last administered on 11/17/18 08:13; Start 11/15/18 at 09:00; Stop 11/17/18 at 11:21; Status DC Divalproex Sodium (Depakote Er) 500 mg DAILY PO Last administered on 11/17/18 08:13; Start 11/15/18 at 09:00; Stop 11/17/18 at 11:27; Status DC Rivastigmine (Exelon) 1 patch DAILY TD Last administered on 11/24/18 08:25; Start 11/15/18 at 09:00 Cyanocobalamin (Vitamin B-12) 1,000 mcg DAILY PO Last administered on 11/24/18 08:24; Start 11/15/18 at 09:00 Hydrochlorothiazide (Microzide) 12.5 mg DAILY PO Last administered on 11/24/18 08:24; Start 11/15/18 at 09:00 Amlodipine Besylate (Norvasc) 10 mg DAILY PO Last administered on 11/24/18 08:24; Start 11/15/18 at 09:00 Aspirin (Children'S Aspirin) 81 mg DAILY PO Last administered on 11/24/18 08:24; Start 11/15/18 at 09:00 Carvedilol (Coreg) 3.125 mg BIDWMEALS PO Last administered on 11/24/18 17:26; Start 11/15/18 at 08:00 Docusate Sodium (Colace) 100 mg DAILY PO Last administered on 11/24/18 08:24; Start 11/15/18 at 09:00 Olanzapine (ZyPREXA ZYDIS) 2.5 mg PRN Q2HR PRN PO PSYCHOSIS Last administered on 11/24/18 12:52; Start 11/15/18 at 23:30 Clonazepam (KlonoPIN) 0.25 mg DAILY PO Last administered on 11/20/18 08:23; Start 11/18/18 at 09:00; Stop 11/20/18 at 12:00; Status DC Divalproex Sodium (Depakote Er) 1,000 mg HS PO Last administered on 6/9/19at 20:05; Start 11/18/18 at 21:00; Stop 11/21/18 at 16:41; Status DC Sertraline HCl (Zoloft) 25 mg DAILY PO Last administered on 11/20/18 08:21; Start 11/18/18 at 09:00; Stop 11/20/18 at 12:00; Status DC Sertraline HCl (Zoloft) 50 mg DAILY PO Last administered on 11/24/18at 08:24; Start 11/18/18 at 09:00 Lorazepam (Ativan) 1 mg TID PRN PRN PO ANXIETY / AGITATION Last administered on 11/24/18at 12:53; Start 11/17/18 at 16:45 Divalproex Sodium (Depakote Er) 1,500 mg HS PO Last administered on 11/23/18 19:57; Start 11/21/18 at 21:00; Stop 11/24/18 at 19:32; Status DC Divalproex Sodium (Depakote Er) 2,000 mg HS PO Last administered on 11/24/18at 20:01; Start 11/24/18 at 21:00 Quetiapine Fumarate (SEROquel) 12.5 mg DAILY PO ; Start 11/25/18 at 09:00 Active Scripts Active Reported Vitamin B-12 (Cyanocobalamin (Vitamin B-12)) 1,000 Mcg Tablet 1,000 Mcg PO DAILY Remeron (Mirtazapine) 30 Mg Tablet 30 Mg PO QHS Hydrochlorothiazide Capsule (Hydrochlorothiazide) 12.5 Mg Capsule 12.5 Mg PO DAILY EXELON 9.5mg/24hr (Rivastigmine) 1 Each Patch.td24 1 Patch TD DAILY Depakote Er (Divalproex Sodium) 500 Mg Tab.er.24h 500 Mg PO DAILY Depakote Er (Divalproex Sodium) 250 Mg Tab.er.24h 250 Mg PO DAILY Coreg (Carvedilol) 3.125 Mg Tablet 3.125 Mg PO BIDWMEALS Colace (Docusate Sodium) 100 Mg Capsule 100 Mg PO DAILY Amlodipine Besylate 10 Mg Tablet 10 Mg PO DAILY Aspirin 81 Mg Tab.chew 81 Mg PO DAILY Clonazepam 0.5 Mg Tablet 0.25 Mg PO BID I have reviewed the current psychotropics carefully including drug interactions. Risk benefit ratio favors no change other than as noted in my dictated progress note. Diagnosis: Problems: (1) Anxiety disorder (2) Dementia in Alzheimer's disease with delusions (3) Dementia in Alzheimer's disease with depression (4) Dementia, vascular, with delusions (5) Dementia, vascular, with depression (6) Impulse control disorder GILDARDO CRAWFORD MD Nov 24, 2018 23:09
[2018-11-25 06:47] VITALS: BP 132/78
[2018-11-25] MEDS: DOCUSATE SODIUM 100 MG CAPSULE PO SCH (08:08)
[2018-11-25] MEDS: SERTRALINE 50 MG TABLET. PO SCH (08:08)
[2018-11-25] MEDS: CARVEDILOL 3.125 MG TABLET PO SCH ×2 (08:08→17:00)
[2018-11-25] MEDS: hydroCHLOROthiazide 12.5 MG CAPSULE PO SCH (08:08)
[2018-11-25] MEDS: RIVASTIGMINE 9.5MG PATCH. TD SCH (08:08)
[2018-11-25] MEDS: ASPIRIN 81 MG TAB.CHEW PO SCH (08:08)
[2018-11-25] MEDS: CYANOCOBALAMIN (VITAMIN B-12) 1,000 MCG TABLET. PO SCH (08:09)
[2018-11-25] MEDS: amLODIPine BESYLATE 10 MG TABLET PO SCH (08:09)
[2018-11-25] MEDS: QUEtiapine 25 MG TABLET. PO SCH (08:14)
[2018-11-25 15:25] VITALS: BP 147/84
[2018-11-25] MEDS: LORazepam 1 MG TABLET PO PRN (18:47)
[2018-11-25] MEDS: MIRTAZAPINE 30 MG TABLET PO SCH (19:51)
[2018-11-25] MEDS: DIVALPROEX ER 500 MG TAB.ER.24H PO SCH (19:51)
--- NOTE | 2018-11-25 22:47 | PDOC ---
Exam Note: Rex Note: Please also refer to the separate dictated note~for this date of service dictated separately.~Patient seen individually. Discussed the patient with Nursing staff reviewed the chart.~Reviewed interim history and current functioning. Reviewed vital signs,~Labs/ Radiology~and current medications noted below. Continue current treatment with the changes noted in the dictated addendum note Assessment: Vital Signs/I&O: Vital Signs Date Time Temp Pulse Resp B/P (MAP) Pulse Ox O2 Delivery O2 Flow Rate FiO2 11/25/18 15:25 97.7 75 22 147/84 (105) 98 11/19/18 16:40 Room Air I & O 11/24/18 11/24/18 11/25/18 15:00 23:00 07:00 Intake Total 480 ml 360 ml Balance 480 ml 360 ml Current Medications: Meds: Current Medications Medications (Trade) Dose Ordered Sig/Carin Route PRN Reason Start Time Stop Time Status Last Admin Dose Admin Quetiapine Fumarate (SEROquel) 12.5 mg DAILY PO 11/25/18 09:00 11/25/18 08:14 I have reviewed the current psychotropics carefully including drug interactions. Risk benefit ratio favors no change other than as noted in my dictated progress note. Diagnosis: Problems: (1) Anxiety disorder (2) Dementia in Alzheimer's disease with delusions (3) Dementia in Alzheimer's disease with depression (4) Dementia, vascular, with delusions (5) Dementia, vascular, with depression (6) Impulse control disorder GILDARDO CRAWFORD MD Nov 25, 2018 22:47
--- NOTE | 2018-11-26 00:27 | PN ---
DATE: 11/23/2018 PSYCHIATRIC PROGRESS NOTE This is a late entry on 11/23/2018 covers elements not covered in my initial note. SUBJECTIVE: I met with the patient in the evening. The patient slept 6-3/4 hours previous night. He had a good day, remains confused, less aggressive, attended groups. He is particularly trying to keep close to one of the other female patients, but not aggressive or disruptive, sexually inappropriate. REVIEW OF SYSTEMS: No CV, , pulmonary, eye, ENT system symptoms on review. Reliability poor. MENTAL STATUS EXAM: Oriented to himself. Insight, judgment, recent and remote memory, attention, concentration, fund of knowledge poor, consistent with his diagnosis mentioned in my initial note. PLAN: No change from initial note. MAN Jennifer CRAWFORD MD DR: INOCENCIO/kalri JOB#: [id number] / [id number]
--- NOTE | 2018-11-26 03:44 | PN ---
DATE: 11/24/2018 PSYCHIATRIC PROGRESS NOTE This late entry 11/24/2018 covers elements not covered in my initial note. SUBJECTIVE: I met with the patient in the evening. The patient slept 6-3/4 hours previous night. He remains confused, anxious, thinks one of the other demented female patient as his . He tried to take a chair, put it on the fence to try and jump over. He received Ativan and Zyprexa at 1:00 p.m., did better and then was again trying to jump over the fence around 3:00 p.m., wanted to take yet another demented female patient with him. Valproic acid level is 33. REVIEW OF SYSTEMS: No CV, , pulmonary, eye, ENT system symptoms on review. Reliability poor. MENTAL STATUS EXAM: Oriented to himself. Insight, judgment, recent and remote memory, attention, concentration, fund of knowledge poor, consistent with his diagnosis. IMPRESSION: Major neurocognitive disorder; Alzheimer; vascular with delusion; depression; behavioral disturbance; anxiety disorder, unspecified; impulse control disorder, unspecified. Rest unchanged. PLAN: Continue Depakote ER, but we will increase it from 1500 mg at bedtime to 2 g at bedtime since valproic acid level is 33. We will check CBC, CMP, valproic acid level in 3 days along with ammonia level. Add Seroquel 12.5 mg at 9:00 a.m. Continue Exelon patch 9.5 mg a day, Remeron 30 mg at bedtime, Zoloft 50 mg a day and Ativan p.r.n. Adjust further as clinically indicated. MAN Jennifer CRAWFORD MD DR: INOCENCIO/karli JOB#: [id number] / [id number]
[2018-11-26 05:47] VITALS: BP 134/73
[2018-11-26] MEDS: ASPIRIN 81 MG TAB.CHEW PO SCH (11:00)
[2018-11-26] MEDS: RIVASTIGMINE 9.5MG PATCH. TD SCH (11:00)
[2018-11-26] MEDS: hydroCHLOROthiazide 12.5 MG CAPSULE PO SCH (11:00)
[2018-11-26] MEDS: CARVEDILOL 3.125 MG TABLET PO SCH ×2 (11:01→17:09)
[2018-11-26] MEDS: amLODIPine BESYLATE 10 MG TABLET PO SCH (11:01)
[2018-11-26] MEDS: DOCUSATE SODIUM 100 MG CAPSULE PO SCH (11:01)
[2018-11-26] MEDS: CYANOCOBALAMIN (VITAMIN B-12) 1,000 MCG TABLET. PO SCH (11:01)
[2018-11-26] MEDS: SERTRALINE 50 MG TABLET. PO SCH (11:01)
[2018-11-26] MEDS: QUEtiapine 25 MG TABLET. PO SCH (11:01)
[2018-11-26] MEDS: LORazepam 1 MG TABLET PO PRN (11:53)
[2018-11-26 15:50] VITALS: BP 137/70
[2018-11-26] MEDS: DIVALPROEX ER 500 MG TAB.ER.24H PO SCH ×2 (19:36→20:34)
[2018-11-26] MEDS: MIRTAZAPINE 30 MG TABLET PO SCH (19:36)
[2018-11-26] MEDS: DIVALPROEX 125 MG CAP.SPRINK PO SCH (20:43)
--- NOTE | 2018-11-26 22:56 | PDOC ---
Exam Note: Rex Note: Please also refer to the separate dictated note~for this date of service dictated separately.~Patient seen individually. Discussed the patient with Nursing staff reviewed the chart.~Reviewed interim history and current functioning. Reviewed vital signs,~Labs/ Radiology~and current medications noted below. Continue current treatment with the changes noted in the dictated addendum note Assessment: Vital Signs/I&O: Vital Signs Date Time Temp Pulse Resp B/P (MAP) Pulse Ox O2 Delivery O2 Flow Rate FiO2 11/26/18 17:09 65 137/70 11/26/18 15:50 98.2 16 98 11/26/18 08:54 Room Air I & O 11/25/18 11/25/18 11/26/18 14:59 22:59 06:59 Intake Total 600 ml 240 ml 120 ml Balance 600 ml 240 ml 120 ml Current Medications: Meds: Current Medications Medications (Trade) Dose Ordered Sig/Carin Route PRN Reason Start Time Stop Time Status Last Admin Dose Admin Divalproex Sodium (Depakote Sprinkles) 2,000 mg HS PO 11/26/18 21:00 11/26/18 20:43 I have reviewed the current psychotropics carefully including drug interactions. Risk benefit ratio favors no change other than as noted in my dictated progress note. Diagnosis: Problems: (1) Anxiety disorder (2) Dementia in Alzheimer's disease with delusions (3) Dementia in Alzheimer's disease with depression (4) Dementia, vascular, with delusions (5) Dementia, vascular, with depression (6) Impulse control disorder GILDARDO CRAWFORD MD Nov 26, 2018 22:56
[2018-11-27 05:51] VITALS: BP 132/71
[2018-11-27 06:56] LABS: BASO % 1 % (0-3); EOS # 0.2 x10^3/uL (0.0-0.7); EOS % 3 % (0-3); HEMATOCRIT 38.5 % (39.0-53.0); HEMOGLOBIN 13.2 g/dL (13.0-17.5); LYMPH % 38 % (24-48); MEAN CORPUSCULAR HEMOGLOBIN 33 pg (25-35); MEAN CORPUSCULAR HGB CONC 34 g/dL (31-37); MEAN CORPUSCULAR VOLUME 95 fL (79-100); MONO # 0.5 x10^3/uL (0.0-1.1); MONO % 10 % (0-9); NEUT # 2.5 x10^3uL (1.8-7.7); NEUT % 48 % (31-73); PLATELET COUNT 220 x10^3/uL (140-400); RED BLOOD COUNT 4.05 x10^6/uL (4.30-5.70); RED CELL DISTRIBUTION WIDTH 12.7 % (11.5-14.5); WHITE BLOOD COUNT 5.2 x10^3/uL (4.0-11.0)
[2018-11-27 07:15] LABS: ALBUMIN 2.8 g/dL (3.4-5.0); ALBUMIN/GLOBULIN RATIO 0.8 (1.0-1.7); ALK PHOS 41 U/L (46-116); ALT (SGPT) 22 U/L (16-63); ANION GAP 4 (6-14); AST (SGOT) 14 U/L (15-37); BLOOD UREA NITROGEN 32 mg/dL (8-26); BUN/CREATININE RATIO 23 (6-20); CALCIUM 8.7 mg/dL (8.5-10.1); CARBON DIOXIDE 31 mmol/L (21-32); CHLORIDE 106 mmol/L (98-107); CREATININE 1.4 mg/dL (0.7-1.3); GFR 48.9; GLUCOSE 90 mg/dL (70-99); SODIUM 141 mmol/L (136-145); TOTAL BILIRUBIN 0.4 mg/dL (0.2-1.0); TOTAL PROTEIN 6.2 g/dL (6.4-8.2)
[2018-11-27 07:16] LABS: VAL ACID 99 mcg/mL (50-100)
[2018-11-27] MEDS: CYANOCOBALAMIN (VITAMIN B-12) 1,000 MCG TABLET. PO SCH (08:42)
[2018-11-27] MEDS: CARVEDILOL 3.125 MG TABLET PO SCH ×2 (08:42→17:21)
[2018-11-27] MEDS: RIVASTIGMINE 9.5MG PATCH. TD SCH (08:42)
[2018-11-27] MEDS: QUEtiapine 25 MG TABLET. PO SCH (08:43)
[2018-11-27] MEDS: SERTRALINE 50 MG TABLET. PO SCH (08:43)
[2018-11-27] MEDS: DOCUSATE SODIUM 100 MG CAPSULE PO SCH (08:43)
[2018-11-27] MEDS: ASPIRIN 81 MG TAB.CHEW PO SCH (08:43)
[2018-11-27] MEDS: hydroCHLOROthiazide 12.5 MG CAPSULE PO SCH (08:43)
[2018-11-27] MEDS: amLODIPine BESYLATE 10 MG TABLET PO SCH (08:43)
[2018-11-27 15:34] VITALS: BP 154/83
[2018-11-27] MEDS: MIRTAZAPINE 30 MG TABLET PO SCH (19:36)
[2018-11-27] MEDS: DIVALPROEX 125 MG CAP.SPRINK PO SCH (19:37)
--- NOTE | 2018-11-27 22:24 | PDOC ---
Exam Note: Rex Note: Please also refer to the separate dictated note~for this date of service dictated separately.~Patient seen individually. Discussed the patient with Nursing staff reviewed the chart.~Reviewed interim history and current functioning. Reviewed vital signs,~Labs/ Radiology~and current medications noted below. Continue current treatment with the changes noted in the dictated addendum note Assessment: Vital Signs/I&O: Vital Signs Date Time Temp Pulse Resp B/P (MAP) Pulse Ox O2 Delivery O2 Flow Rate FiO2 11/27/18 17:21 67 154/83 11/27/18 15:34 98.3 16 97 11/26/18 08:54 Room Air I & O 11/26/18 11/26/18 11/27/18 15:00 23:00 07:00 Intake Total 960 ml 480 ml 240 ml Balance 960 ml 480 ml 240 ml Labs: Laboratory Tests Test 11/27/18 06:44 White Blood Count 5.2 x10^3/uL (4.0-11.0) Red Blood Count 4.05 x10^6/uL (4.30-5.70) L Hemoglobin 13.2 g/dL (13.0-17.5) Hematocrit 38.5 % (39.0-53.0) L Mean Corpuscular Volume 95 fL (79-100) Mean Corpuscular Hemoglobin 33 pg (25-35) Mean Corpuscular Hemoglobin Concent 34 g/dL (31-37) Red Cell Distribution Width 12.7 % (11.5-14.5) Platelet Count 220 x10^3/uL (140-400) Neutrophils (%) (Auto) 48 % (31-73) Lymphocytes (%) (Auto) 38 % (24-48) Monocytes (%) (Auto) 10 % (0-9) H Eosinophils (%) (Auto) 3 % (0-3) Basophils (%) (Auto) 1 % (0-3) Neutrophils # (Auto) 2.5 x10^3uL (1.8-7.7) Lymphocytes # (Auto) 2.0 x10^3/uL (1.0-4.8) Monocytes # (Auto) 0.5 x10^3/uL (0.0-1.1) Eosinophils # (Auto) 0.2 x10^3/uL (0.0-0.7) Basophils # (Auto) 0.0 x10^3/uL (0.0-0.2) Sodium Level 141 mmol/L (136-145) Potassium Level 4.0 mmol/L (3.5-5.1) Chloride Level 106 mmol/L (98-107) Carbon Dioxide Level 31 mmol/L (21-32) Anion Gap 4 (6-14) L Blood Urea Nitrogen 32 mg/dL (8-26) H Creatinine 1.4 mg/dL (0.7-1.3) H Estimated GFR (Cockcroft-Gault) 48.9 BUN/Creatinine Ratio 23 (6-20) H Glucose Level 90 mg/dL (70-99) Calcium Level 8.7 mg/dL (8.5-10.1) Total Bilirubin 0.4 mg/dL (0.2-1.0) Aspartate Amino Transferase (AST) 14 U/L (15-37) L Alanine Aminotransferase (ALT) 22 U/L (16-63) Alkaline Phosphatase 41 U/L (46-116) L Ammonia 16 mcmol/L (11-34) Total Protein 6.2 g/dL (6.4-8.2) L Albumin 2.8 g/dL (3.4-5.0) L Albumin/Globulin Ratio 0.8 (1.0-1.7) L Valproic Acid Level 99 mcg/mL (50-100) Valproic Acid Last Dose Date 11/26/18 Valproic Acid Last Dose Time 2100 Current Medications: I have reviewed the current psychotropics carefully including drug interactions. Risk benefit ratio favors no change other than as noted in my dictated progress note. Diagnosis: Problems: (1) Anxiety disorder (2) Dementia in Alzheimer's disease with delusions (3) Dementia in Alzheimer's disease with depression (4) Dementia, vascular, with delusions (5) Dementia, vascular, with depression (6) Impulse control disorder GILDARDO CRAWFORD MD Nov 27, 2018 22:24
--- NOTE | 2018-11-28 00:26 | PN ---
DATE: PSYCHIATRIC PROGRESS NOTE This is a late entry for 11/25/2018 covers elements not covered in my initial note. SUBJECTIVE: I met with the patient in the evening. The patient slept 5-3/4 hours previous night. He has been fixated on one of the other demented patients, believes she is his as yet another female patient on the unit, refused his bedtime and a.m. medications. REVIEW OF SYSTEMS: No CV, , pulmonary, eye, ENT system symptoms on review. Reliability poor. MENTAL STATUS EXAM: Oriented to himself. Insight, judgment, recent and remote memory, attention, concentration, fund of knowledge poor, consistent with his diagnosis mentioned in my initial note. PLAN: No change from initial note. Depakote has been increased to Depakote ER 2000 mg at bedtime. Check CBC, CMP, valproic acid level, ammonia level in 3 days since prior valproic acid level at the lower dosage was subtherapeutic at 33. Continue, rest unchanged. MAN Jennifer CRAWFORD MD DR: INOCENCIO/karli JOB#: [id number] / [id number]
[2018-11-28 06:11] VITALS: BP 116/64
[2018-11-28 07:05] LABS: VAL ACID 96 mcg/mL (50-100)
[2018-11-28] MEDS: hydroCHLOROthiazide 12.5 MG CAPSULE PO SCH (08:13)
[2018-11-28] MEDS: DOCUSATE SODIUM 100 MG CAPSULE PO SCH (08:13)
[2018-11-28] MEDS: ASPIRIN 81 MG TAB.CHEW PO SCH (08:14)
[2018-11-28] MEDS: CYANOCOBALAMIN (VITAMIN B-12) 1,000 MCG TABLET. PO SCH (08:14)
[2018-11-28] MEDS: CARVEDILOL 3.125 MG TABLET PO SCH ×2 (08:14→18:18)
[2018-11-28] MEDS: RIVASTIGMINE 9.5MG PATCH. TD SCH ×2 (08:14→09:00)
[2018-11-28] MEDS: amLODIPine BESYLATE 10 MG TABLET PO SCH (08:14)
[2018-11-28] MEDS: SERTRALINE 50 MG TABLET. PO SCH (08:14)
[2018-11-28] MEDS ORDERED: risperiDONE 0.25 MG TABLET. PO SCH (09:00)
[2018-11-28] MEDS: LORazepam 1 MG TABLET PO PRN ×2 (14:16→22:04)
[2018-11-28 17:52] VITALS: BP 118/69
[2018-11-28] MEDS: DIVALPROEX 125 MG CAP.SPRINK PO SCH (19:24)
[2018-11-28] MEDS: MIRTAZAPINE 30 MG TABLET PO SCH (19:24)
--- NOTE | 2018-11-28 22:39 | PDOC ---
Exam Note: Rex Note: Please also refer to the separate dictated note~for this date of service dictated separately.~Patient seen individually. Discussed the patient with Nursing staff reviewed the chart.~Reviewed interim history and current functioning. Reviewed vital signs,~Labs/ Radiology~and current medications noted below. Continue current treatment with the changes noted in the dictated addendum note Assessment: Vital Signs/I&O: Vital Signs Date Time Temp Pulse Resp B/P (MAP) Pulse Ox O2 Delivery O2 Flow Rate FiO2 11/28/18 18:18 67 118/69 11/28/18 17:52 98.5 16 95 11/26/18 08:54 Room Air I & O 11/27/18 11/27/18 11/28/18 14:59 22:59 06:59 Intake Total 600 ml 240 ml Balance 600 ml 240 ml Labs: Laboratory Tests Test 11/28/18 06:23 Valproic Acid Level 96 mcg/mL (50-100) Valproic Acid Last Dose Date 11/27/18 Valproic Acid Last Dose Time 2100 Current Medications: Meds: Current Medications Medications (Trade) Dose Ordered Sig/Carin Route PRN Reason Start Time Stop Time Status Last Admin Dose Admin Risperidone (RisperDAL) 0.25 mg DAILY PO 11/28/18 09:00 11/28/18 18:41 DC 11/28/18 08:15 I have reviewed the current psychotropics carefully including drug interactions. Risk benefit ratio favors no change other than as noted in my dictated progress note. Diagnosis: Problems: (1) Anxiety disorder (2) Dementia in Alzheimer's disease with delusions (3) Dementia in Alzheimer's disease with depression (4) Dementia, vascular, with delusions (5) Dementia, vascular, with depression (6) Impulse control disorder GILDARDO CRAWFORD MD Nov 28, 2018 22:39
--- NOTE | 2018-11-29 04:41 | PN ---
DATE: 11/26/2018 PSYCHIATRIC PROGRESS NOTE This late entry 11/26/2018, covers elements not covered in my initial note. SUBJECTIVE: I met with the patient in the evening. The patient slept 7 hours previous night. He has been quite obsessed about one of the other demented patients, interferes with her functioning on the unit. Receives Zyprexa and Ativan syringed by nursing staff due to his marked agitation, refuse medications and we will change the Depakote ER to Sprinkles to help with compliance. REVIEW OF SYSTEMS: No CV, , pulmonary, eye, ENT system symptoms on review. Reliability poor. MENTAL STATUS EXAM: Oriented to himself. Insight, judgment, recent and remote memory, attention, concentration, fund of knowledge poor, consistent with his diagnosis mentioned in my initial note. PLAN: No change from initial note. MAN Jennifer CRAWFORD MD DR: INOCENCIO/karli JOB#: [id number] / [id number]
--- NOTE | 2018-11-29 05:18 | PN ---
DATE: 11/27/2018 PSYCHIATRIC PROGRESS NOTE This late entry 11/27/2018 covers elements not covered in my initial note. SUBJECTIVE: I met with the patient in the evening. The patient slept 6-1/4 hours previous night. He took his medications in the morning, but after lunch, he was trying to get another demented patient to leave with him. He is quite agitated, restless, paranoid. Valproic acid level is 99 on 11/27/2018. We will repeat it in the morning of 11/28/2018. REVIEW OF SYSTEMS: No CV, , pulmonary, eye, ENT system symptoms on review. Reliability poor. MENTAL STATUS EXAM: Oriented to himself. Insight, judgment, recent and remote memory, attention, concentration, fund of knowledge poor, consistent with his diagnosis mentioned in my initial note. IMPRESSION: Major neurocognitive disorder, Alzheimer, vascular with delusion, depression, behavioral disturbance; anxiety disorder, unspecified; impulse control disorder, unspecified. PLAN: Continue Depakote at current dosage, change Seroquel to Risperdal 0.25 mg daily for his psychotic symptoms. Maintain Zoloft, Remeron, repeat a valproic acid level. Ativan is p.r.n. Make further adjustments as clinically indicated. GILDARDO CRAWFORD MD DR: INOCENCIO/karli JOB#: [id number] / [id number]
[2018-11-29 06:00] VITALS: BP 105/46
[2018-11-29] MEDS: DOCUSATE SODIUM 100 MG CAPSULE PO SCH (07:48)
[2018-11-29] MEDS: hydroCHLOROthiazide 12.5 MG CAPSULE PO SCH (07:48)
[2018-11-29] MEDS: ASPIRIN 81 MG TAB.CHEW PO SCH (07:50)
[2018-11-29] MEDS: SERTRALINE 50 MG TABLET. PO SCH (07:50)
[2018-11-29] MEDS: CYANOCOBALAMIN (VITAMIN B-12) 1,000 MCG TABLET. PO SCH (07:50)
[2018-11-29] MEDS: RIVASTIGMINE 9.5MG PATCH. TD SCH (07:51)
[2018-11-29] MEDS: risperiDONE 0.25 MG TABLET. PO SCH ×2 (07:54→13:12)
[2018-11-29] MEDS: CARVEDILOL 3.125 MG TABLET PO SCH ×2 (08:00→17:33)
[2018-11-29] MEDS: amLODIPine BESYLATE 10 MG TABLET PO SCH (09:00)
[2018-11-29] MEDS: LORazepam 1 MG TABLET PO PRN (09:20)
--- NOTE | 2018-11-29 14:12 | PN ---
DATE: 11/28/2018 PSYCHIATRIC PROGRESS NOTE This late entry 11/28/2018 covers elements not covered in my initial note. SUBJECTIVE: I met with the patient in the evening. The patient has had a difficult afternoon after 1:00 p.m. He has been increasingly agitated, standing close to one of the activity therapy staff including keep putting his face next to the staff member demanding that the staff member take him home. He refused Zyprexa, refused the rest of his meds and they had to be syringed. Valproic acid level is 96. REVIEW OF SYSTEMS: No CV, , pulmonary, eye, ENT system symptoms. On review, reliability poor. MENTAL STATUS EXAM: Oriented to himself. Insight, judgment, recent and remote memory, attention, concentration, fund of knowledge poor, consistent with his diagnosis. He was very paranoid, suspicious, dismissive as I met with him, seemed angry. LABORATORY DATA: Reviewed. IMPRESSION: Major neurocognitive disorder, Alzheimer, vascular with delusion, depression, behavioral disturbance; anxiety disorder, unspecified; impulse control disorder, unspecified. PLAN: Increase Risperdal to 0.25 mg twice a day. Continue Depakote Sprinkle 2000 mg at bedtime, level therapeutic. Maintain Exelon, Remeron, Zoloft along with Ativan p.r.n., Zyprexa, p.r.n. Seroquel has been stopped. MAN Jennifer CRAWFORD MD DR: INOCENCIO/karli JOB#: [id number] / [id number]
[2018-11-29 15:50] VITALS: BP 153/75
[2018-11-29] MEDS: DIVALPROEX 125 MG CAP.SPRINK PO SCH (19:43)
[2018-11-29] MEDS: MIRTAZAPINE 30 MG TABLET PO SCH (19:43)
--- NOTE | 2018-11-29 22:20 | PDOC ---
Exam Note: Rex Note: Please also refer to the separate dictated note~for this date of service dictated separately.~Patient seen individually. Discussed the patient with Nursing staff reviewed the chart.~Reviewed interim history and current functioning. Reviewed vital signs,~Labs/ Radiology~and current medications noted below. Continue current treatment with the changes noted in the dictated addendum note Assessment: Vital Signs/I&O: Vital Signs Date Time Temp Pulse Resp B/P (MAP) Pulse Ox O2 Delivery O2 Flow Rate FiO2 11/29/18 17:33 67 153/75 11/29/18 15:50 98.0 18 99 11/26/18 08:54 Room Air I & O 11/28/18 11/28/18 11/29/18 14:59 22:59 06:59 Intake Total 720 ml 240 ml 240 ml Balance 720 ml 240 ml 240 ml Current Medications: Meds: Current Medications Medications (Trade) Dose Ordered Sig/Carin Route PRN Reason Start Time Stop Time Status Last Admin Dose Admin Risperidone (RisperDAL) 0.25 mg 0900,1300 PO 11/29/18 09:00 11/29/18 19:05 DC 11/29/18 13:12 I have reviewed the current psychotropics carefully including drug interactions. Risk benefit ratio favors no change other than as noted in my dictated progress note. Diagnosis: Problems: (1) Anxiety disorder (2) Dementia in Alzheimer's disease with delusions (3) Dementia in Alzheimer's disease with depression (4) Dementia, vascular, with delusions (5) Dementia, vascular, with depression (6) Impulse control disorder GILDARDO CRAWFORD MD Nov 29, 2018 22:20
[2018-11-30 06:12] VITALS: BP 118/59
[2018-11-30] MEDS: DOCUSATE SODIUM 100 MG CAPSULE PO SCH (07:55)
[2018-11-30] MEDS: ASPIRIN 81 MG TAB.CHEW PO SCH (07:55)
[2018-11-30] MEDS: RIVASTIGMINE 9.5MG PATCH. TD SCH ×2 (07:55→09:00)
[2018-11-30] MEDS: amLODIPine BESYLATE 10 MG TABLET PO SCH ×2 (07:55→09:00)
[2018-11-30] MEDS: CYANOCOBALAMIN (VITAMIN B-12) 1,000 MCG TABLET. PO SCH (07:56)
[2018-11-30] MEDS: hydroCHLOROthiazide 12.5 MG CAPSULE PO SCH (07:56)
[2018-11-30] MEDS: SERTRALINE 50 MG TABLET. PO SCH (07:56)
[2018-11-30] MEDS: CARVEDILOL 3.125 MG TABLET PO SCH ×3 (07:56→18:13)
[2018-11-30] MEDS ORDERED: risperiDONE 0.5 MG TABLET. PO SCH (09:00)
[2018-11-30] MEDS ORDERED: risperiDONE 0.25 MG TABLET. PO SCH (13:00)
[2018-11-30 16:06] VITALS: BP 127/69
[2018-11-30] MEDS: DIVALPROEX 125 MG CAP.SPRINK PO SCH (19:28)
[2018-11-30] MEDS: MIRTAZAPINE 30 MG TABLET PO SCH (19:28)
[2018-11-30] MEDS ORDERED: risperiDONE 0.25 MG TABLET. PO ONE (21:00)
--- NOTE | 2018-11-30 22:17 | PDOC ---
Exam Note: Rex Note: Please also refer to the separate dictated note~for this date of service dictated separately.~Patient seen individually. Discussed the patient with Nursing staff reviewed the chart.~Reviewed interim history and current functioning. Reviewed vital signs,~Labs/ Radiology~and current medications noted below. Continue current treatment with the changes noted in the dictated addendum note Assessment: Vital Signs/I&O: Vital Signs Date Time Temp Pulse Resp B/P (MAP) Pulse Ox O2 Delivery O2 Flow Rate FiO2 11/30/18 18:13 63 127/69 11/30/18 16:06 97.6 16 95 11/30/18 06:12 Room Air I & O 11/29/18 11/29/18 11/30/18 14:59 22:59 06:59 Intake Total 720 ml 240 ml 240 ml Balance 720 ml 240 ml 240 ml Current Medications: Meds: Current Medications Medications (Trade) Dose Ordered Sig/Carin Route PRN Reason Start Time Stop Time Status Last Admin Dose Admin Risperidone (RisperDAL) 0.5 mg DAILY PO 11/30/18 09:00 11/30/18 19:32 DC 11/30/18 07:58 I have reviewed the current psychotropics carefully including drug interactions. Risk benefit ratio favors no change other than as noted in my dictated progress note. Diagnosis: Problems: (1) Anxiety disorder (2) Dementia in Alzheimer's disease with delusions (3) Dementia in Alzheimer's disease with depression (4) Dementia, vascular, with delusions (5) Dementia, vascular, with depression (6) Impulse control disorder GILDARDO CRAWFORD MD Nov 30, 2018 22:17
--- NOTE | 2018-12-01 01:02 | PN ---
DATE: 11/29/2018 PSYCHIATRIC PROGRESS NOTE This is a late entry 11/29/2018, covers the elements not covered in my initial note. SUBJECTIVE: I met with the patient at length in the evening. The patient slept 5-3/4 hours previous evening. Previous night, he was sitting with another female demented patient, got agitated with the staff as they were taking the patient for some ADLs. 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 He received Ativan and Zyprexa p.r.n. and then was found in the room of other demented female patient kissing her. He has been redirected. He was paranoid, dismissive as I met with him. REVIEW OF SYSTEMS: No CV, , pulmonary, eye, ENT system symptoms on review. Reliability poor. MENTAL STATUS EXAM: Oriented to himself. Insight, judgment, recent and remote memory, attention, concentration, fund of knowledge poor, consistent with his diagnosis mentioned in my initial note. PLAN: Continue Depakote, Exelon patch, Remeron, Zoloft, along with Ativan p.r.n. Zyprexa p.r.n. increase Risperdal from 0.25 mg twice a day to 0.5 mg in the morning, 0.25 at night. Carefully reviewed drug interactions. May need to make further adjustments as clinically indicated. MAN Jennifer CRAWFORD MD DR: INOCENCIO/karli JOB#: [id number] / [id number]
[2018-12-01 06:10] VITALS: BP 149/53
[2018-12-01] MEDS: RIVASTIGMINE 9.5MG PATCH. TD SCH (07:53)
[2018-12-01] MEDS: hydroCHLOROthiazide 12.5 MG CAPSULE PO SCH (07:54)
[2018-12-01] MEDS: CARVEDILOL 3.125 MG TABLET PO SCH ×2 (07:54→17:37)
[2018-12-01] MEDS: SERTRALINE 50 MG TABLET. PO SCH (07:55)
[2018-12-01] MEDS: ASPIRIN 81 MG TAB.CHEW PO SCH (07:55)
[2018-12-01] MEDS: amLODIPine BESYLATE 10 MG TABLET PO SCH (07:55)
[2018-12-01] MEDS: DOCUSATE SODIUM 100 MG CAPSULE PO SCH (07:55)
[2018-12-01] MEDS: CYANOCOBALAMIN (VITAMIN B-12) 1,000 MCG TABLET. PO SCH (07:55)
[2018-12-01 16:37] VITALS: BP 157/76
[2018-12-01] MEDS: DIVALPROEX 125 MG CAP.SPRINK PO SCH (19:30)
[2018-12-01] MEDS: MIRTAZAPINE 30 MG TABLET PO SCH (19:31)
[2018-12-01] MEDS: risperiDONE 0.25 MG TABLET. PO SCH (19:32)
--- NOTE | 2018-12-01 22:42 | PDOC ---
Exam Note: Rex Note: Please also refer to the separate dictated note~for this date of service dictated separately.~Patient seen individually. Discussed the patient with Nursing staff reviewed the chart.~Reviewed interim history and current functioning. Reviewed vital signs,~Labs/ Radiology~and current medications noted below. Continue current treatment with the changes noted in the dictated addendum note Assessment: Vital Signs/I&O: Vital Signs Date Time Temp Pulse Resp B/P (MAP) Pulse Ox O2 Delivery O2 Flow Rate FiO2 12/01/18 17:37 67 157/76 12/01/18 16:37 98.0 18 93 11/30/18 06:12 Room Air I & O 11/30/18 11/30/18 12/01/18 14:59 22:59 06:59 Intake Total 720 ml 240 ml 240 ml Balance 720 ml 240 ml 240 ml Current Medications: Meds: Current Medications Medications (Trade) Dose Ordered Sig/Carin Route PRN Reason Start Time Stop Time Status Last Admin Dose Admin Risperidone (RisperDAL) 0.75 mg QHS PO 12/01/18 21:00 12/01/18 19:32 I have reviewed the current psychotropics carefully including drug interactions. Risk benefit ratio favors no change other than as noted in my dictated progress note. Diagnosis: Problems: (1) Anxiety disorder (2) Dementia in Alzheimer's disease with delusions (3) Dementia in Alzheimer's disease with depression (4) Dementia, vascular, with delusions (5) Dementia, vascular, with depression (6) Impulse control disorder GILDARDO CRAWFORD MD Dec 01, 2018 22:42
[2018-12-02 06:11] VITALS: BP 152/69
[2018-12-02] MEDS: ASPIRIN 81 MG TAB.CHEW PO SCH (08:12)
[2018-12-02] MEDS: amLODIPine BESYLATE 10 MG TABLET PO SCH (08:12)
[2018-12-02] MEDS: RIVASTIGMINE 9.5MG PATCH. TD SCH (08:13)
[2018-12-02] MEDS: CYANOCOBALAMIN (VITAMIN B-12) 1,000 MCG TABLET. PO SCH (08:13)
[2018-12-02] MEDS: DOCUSATE SODIUM 100 MG CAPSULE PO SCH (08:13)
[2018-12-02] MEDS: CARVEDILOL 3.125 MG TABLET PO SCH ×2 (08:13→17:00)
[2018-12-02] MEDS: hydroCHLOROthiazide 12.5 MG CAPSULE PO SCH (08:13)
[2018-12-02] MEDS: SERTRALINE 50 MG TABLET. PO SCH (08:13)
[2018-12-02 15:48] VITALS: BP 138/87
[2018-12-02] MEDS: risperiDONE 0.25 MG TABLET. PO SCH (19:52)
[2018-12-02] MEDS: MIRTAZAPINE 30 MG TABLET PO SCH (19:52)
[2018-12-02] MEDS: DIVALPROEX 125 MG CAP.SPRINK PO SCH (19:53)
--- NOTE | 2018-12-02 22:16 | PDOC ---
Exam Note: Rex Note: Please also refer to the separate dictated note~for this date of service dictated separately.~Patient seen individually. Discussed the patient with Nursing staff reviewed the chart.~Reviewed interim history and current functioning. Reviewed vital signs,~Labs/ Radiology~and current medications noted below. Continue current treatment with the changes noted in the dictated addendum note Assessment: Vital Signs/I&O: Vital Signs Date Time Temp Pulse Resp B/P (MAP) Pulse Ox O2 Delivery O2 Flow Rate FiO2 12/02/18 17:00 67 138/87 12/02/18 15:48 98.7 18 96 Room Air I & O 12/01/18 12/01/18 12/02/18 15:00 23:00 07:00 Intake Total 600 ml 240 ml 120 ml Balance 600 ml 240 ml 120 ml Current Medications: I have reviewed the current psychotropics carefully including drug interactions. Risk benefit ratio favors no change other than as noted in my dictated progress note. Diagnosis: Problems: (1) Anxiety disorder (2) Dementia in Alzheimer's disease with delusions (3) Dementia in Alzheimer's disease with depression (4) Dementia, vascular, with delusions (5) Dementia, vascular, with depression (6) Impulse control disorder GILDARDO CRAWFORD MD Dec 02, 2018 22:16
--- NOTE | 2018-12-03 01:09 | PN ---
DATE: 12/02/2018 This note covers the elements not covered in my initial note 12/02/2018. SUBJECTIVE: I met with the patient in the evening. The patient slept 7 hours previous night. He has been preoccupied with another female demented patient on the unit he believes is his . Family have shared with him that his just . He was resistive to bedtime meds and does get several meds at one time. Today, he was compliant with the psychotropics. As I met with him, he is still somewhat paranoid, dismissive of my visit. REVIEW OF SYSTEMS: No CV, , pulmonary, eye, ENT system symptoms on review. Reliability poor. MENTAL STATUS EXAM: Oriented to himself. Insight, judgment, recent and remote memory, attention, concentration, fund of knowledge poor, consistent with his diagnosis mentioned in my initial note. PLAN: No change from initial note. GILDARDO CRAWFORD MD DR: INOCENCIO/karli JOB#: [id number] / [id number]
--- NOTE | 2018-12-03 05:48 | PN ---
DATE: 12/01/2018 PSYCHIATRIC PROGRESS NOTE This late entry 12/01/2018 covers elements not covered in my initial note. SUBJECTIVE: I met with the patient in the evening and staffed a treatment team meeting with the entire team in the morning. The patient slept 7 hours previous night. Appetite 75%. He is quite confused, delusional, intrusive, noncompliant with medications. Reportedly, the patient's on Wednesday. Family have not informed him because he essentially does not remember her, thinks one of the other demented patients on the unit is his . His was on hospice care. REVIEW OF SYSTEMS: No CV, , pulmonary, eye, ENT system symptoms on review. Reliability poor. MENTAL STATUS EXAM: Oriented to himself. Insight, judgment, recent and remote memory, attention, concentration, fund of knowledge poor, consistent with his diagnosis mentioned in my initial note. PLAN: No change from initial note. GILDARDO CRAWFORD MD DR: INOCENCIO/karli JOB#: [id number] / [id number]
[2018-12-03 06:09] VITALS: BP 111/70
--- NOTE | 2018-12-03 06:45 | PN ---
DATE: 11/30/2018 This late entry 11/30/2018 covers elements not covered in my initial note. SUBJECTIVE: I met with the patient in the evening. The patient slept 5-3/4 hours previous night. Previous night he was inappropriate sexually with another female patient on the unit, believes she is his . Refused meds in the morning and the Exelon patch in the evening. REVIEW OF SYSTEMS: No CV, , pulmonary, eye, ENT system symptoms on review. The patient is somewhat dismissive as I met with him. MENTAL STATUS EXAM: Oriented to himself. Insight, judgment, recent and remote memory, attention, concentration, fund of knowledge poor consistent with his diagnosis mentioned in my initial note. PLAN: The patient is currently on Risperdal 0.5 mg a.m., 0.25 at bedtime and he is very noncompliant with his medications. We will change the Risperdal to 0.75 mg p.o. at bedtime, had slept 5-3/4 hours previous night. Continue rest of the psychotropics unchanged. MAN Jennifer CRAWFORD MD DR: IONCENCIO/karli JOB#: [id number] / [id number]
[2018-12-03 07:08] LABS: BASO % 1 % (0-3); EOS # 0.1 x10^3/uL (0.0-0.7); EOS % 2 % (0-3); HEMATOCRIT 41.3 % (39.0-53.0); HEMOGLOBIN 14.2 g/dL (13.0-17.5); LYMPH # 2.3 x10^3/uL (1.0-4.8); LYMPH % 38 % (24-48); MEAN CORPUSCULAR HEMOGLOBIN 33 pg (25-35); MEAN CORPUSCULAR HGB CONC 34 g/dL (31-37); MEAN CORPUSCULAR VOLUME 96 fL (79-100); MONO # 0.7 x10^3/uL (0.0-1.1); MONO % 11 % (0-9); NEUT # 2.8 x10^3uL (1.8-7.7); NEUT % 48 % (31-73); PLATELET COUNT 173 x10^3/uL (140-400); WHITE BLOOD COUNT 5.9 x10^3/uL (4.0-11.0)
[2018-12-03 07:24] LABS: ALBUMIN 2.8 g/dL (3.4-5.0); ALBUMIN/GLOBULIN RATIO 0.8 (1.0-1.7); CALCIUM 8.6 mg/dL (8.5-10.1); CREATININE 1.3 mg/dL (0.7-1.3); GFR 53.1; POTASSIUM 3.9 mmol/L (3.5-5.1); TOTAL BILIRUBIN 0.4 mg/dL (0.2-1.0); TOTAL PROTEIN 6.3 g/dL (6.4-8.2)
[2018-12-03] MEDS: SERTRALINE 50 MG TABLET. PO SCH (07:29)
[2018-12-03] MEDS: DOCUSATE SODIUM 100 MG CAPSULE PO SCH (07:33)
[2018-12-03] MEDS: amLODIPine BESYLATE 10 MG TABLET PO SCH (07:33)
[2018-12-03] MEDS: ASPIRIN 81 MG TAB.CHEW PO SCH (07:34)
[2018-12-03] MEDS: CARVEDILOL 3.125 MG TABLET PO SCH ×2 (07:34→17:21)
[2018-12-03] MEDS: hydroCHLOROthiazide 12.5 MG CAPSULE PO SCH (07:34)
[2018-12-03] MEDS: RIVASTIGMINE 9.5MG PATCH. TD SCH (07:35)
[2018-12-03] MEDS: CYANOCOBALAMIN (VITAMIN B-12) 1,000 MCG TABLET. PO SCH (07:36)
[2018-12-03 15:36] VITALS: BP 130/69
[2018-12-03] MEDS: risperiDONE 0.25 MG TABLET. PO SCH (20:08)
[2018-12-03] MEDS: DIVALPROEX 125 MG CAP.SPRINK PO SCH (20:08)
[2018-12-03] MEDS: MIRTAZAPINE 30 MG TABLET PO SCH (20:08)
[2018-12-03] MEDS: LORazepam 1 MG TABLET PO PRN (21:04)
[2018-12-04 06:29] VITALS: BP 170/85
[2018-12-04] MEDS: CARVEDILOL 3.125 MG TABLET PO SCH ×2 (06:37→17:00)
[2018-12-04] MEDS: RIVASTIGMINE 9.5MG PATCH. TD SCH (07:34)
[2018-12-04] MEDS: hydroCHLOROthiazide 12.5 MG CAPSULE PO SCH (07:35)
[2018-12-04] MEDS: CYANOCOBALAMIN (VITAMIN B-12) 1,000 MCG TABLET. PO SCH (07:35)
[2018-12-04] MEDS: SERTRALINE 50 MG TABLET. PO SCH (07:35)
[2018-12-04] MEDS: amLODIPine BESYLATE 10 MG TABLET PO SCH (07:35)
[2018-12-04] MEDS: DOCUSATE SODIUM 100 MG CAPSULE PO SCH (07:35)
[2018-12-04] MEDS: ASPIRIN 81 MG TAB.CHEW PO SCH (07:35)
--- NOTE | 2018-12-04 12:00 | PN ---
DATE: DATE OF SERVICE: 12/03/2018 SUBJECTIVE: The patient was seen today, met with the staff, chart reviewed. Staff reports that the patient is at high risk for elopement. The patient is hyperverbal, somewhat grandiose, increased psychomotor activity. 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 The patient currently close to one of the other female residents. The patient's thinking is fragmented, confused, labile and also poor impulse control, low frustration tolerance. OBSERVATION: VITAL SIGNS: Temperature 98.1, blood pressure 111/70, pulse 50, respirations 18, O2 sat 96%. Slept about 7 hours last night. MEDICATIONS: The patient's medications reviewed and he is currently on lorazepam 1 mg daily, olanzapine 2.5 mg q. 2 hours p.r.n., Exelon patch daily, mirtazapine 30 mg at night. The patient is not having any side effects to the medications. The patient is also on Depakote 2000 mg daily, Risperdal 0.75 mg at night. The patient's lab reviewed, which were all within normal range except for BUN was 32, last one checked on 12/03/2018 was normal at 26. The patient is able to walk. No recent falls. The patient has difficulty to comprehend, gets confused. The patient is not having any side effects to the medications. ASSESSMENT: 1. Major neurocognitive disorder, most likely with Alzheimer's versus vascular type. 2. Generalized anxiety disorder. PLAN: To continue with the treatment. GLORIA KIRK MD DR: VIDYA/karli JOB#: [id number] / [id number]
[2018-12-04] MEDS: LORazepam 1 MG TABLET PO PRN ×2 (16:05→23:03)
[2018-12-04 17:11] VITALS: BP 128/78
[2018-12-04] MEDS: MIRTAZAPINE 30 MG TABLET PO SCH (19:40)
[2018-12-04] MEDS: DIVALPROEX 125 MG CAP.SPRINK PO SCH (19:41)
[2018-12-04] MEDS: risperiDONE 0.25 MG TABLET. PO SCH (19:41)
[2018-12-05 06:23] VITALS: BP 135/79
[2018-12-05] MEDS: DOCUSATE SODIUM 100 MG CAPSULE PO SCH (07:36)
[2018-12-05] MEDS: CARVEDILOL 3.125 MG TABLET PO SCH ×2 (07:36→17:00)
[2018-12-05] MEDS: ASPIRIN 81 MG TAB.CHEW PO SCH (07:36)
[2018-12-05] MEDS: CYANOCOBALAMIN (VITAMIN B-12) 1,000 MCG TABLET. PO SCH (07:36)
[2018-12-05] MEDS: hydroCHLOROthiazide 12.5 MG CAPSULE PO SCH (07:37)
[2018-12-05] MEDS: amLODIPine BESYLATE 10 MG TABLET PO SCH (07:37)
[2018-12-05] MEDS: SERTRALINE 50 MG TABLET. PO SCH (07:37)
[2018-12-05] MEDS: RIVASTIGMINE 9.5MG PATCH. TD SCH (07:37)
[2018-12-05] MEDS: LORazepam 1 MG TABLET PO PRN (07:41)
[2018-12-05] MEDS ORDERED: OLANZapine IM 10 MG VIAL. IM ONE (11:00)
--- NOTE | 2018-12-05 15:11 | PN ---
DATE: 12/04/2018 SUBJECTIVE: The patient was seen today, met with the staff, chart reviewed. The patient continues to exhibit behavioral problems at times, labile, poor impulse control, low frustration tolerance. The patient is also high risk for elopement. The patient continues to show mood swings, irritability, at times euphoric. The patient also has significant problems with his thinking, fragmented, confused, labile. OBSERVATION: VITAL SIGNS: Temperature 97.9, blood pressure 170/88, pulse 71, respirations 18, O2 sat 97%. Slept about 6-1/2 hours last night. CURRENT MEDICATIONS: The patient's current medications include lorazepam 1 mg daily, olanzapine 2.5 mg q. 2 hours p.r.n., Exelon patch daily, mirtazapine 30 mg at night. The patient is also on Depakote and Risperdal 0.75 mg at night. The patient denies of any side effects. PLAN: Continue with the current treatment plan. LENGTH OF STAY: Seven days. GLORIA KIRK MD DR: VIDYA/karli JOB#: [id number] / [id number]
[2018-12-05 16:34] VITALS: BP 127/76
[2018-12-05] MEDS: MIRTAZAPINE 30 MG TABLET PO SCH (20:24)
[2018-12-05] MEDS: DIVALPROEX 125 MG CAP.SPRINK PO SCH (20:24)
[2018-12-05] MEDS: risperiDONE 1 MG TABLET. PO SCH (20:26)
[2018-12-06 06:14] VITALS: BP 138/67
--- NOTE | 2018-12-06 06:31 | PN ---
DATE: 12/05/2018 SUBJECTIVE: The patient was seen today, met with the staff, chart reviewed. Staff reports continued behavior problems, elopement risk, getting angry, increased confusion, difficult to contain his behavior at times. The patient is also high risk for elopement. The patient continues to show fluctuating mood irritability, at times euphoric. The patient also has problems with thinking and significant cognitive deficits. OBSERVATIONS: VITAL SIGNS: Temperature 98.4, blood pressure 135/79, pulse 65, respirations 16, O2 sat 97%. Slept about 6-1/2 hours last night. The patient's appetite improved. The patient is not having any side effects to the medications. CURRENT MEDICATIONS: Include lorazepam 1 mg daily, Zyprexa 2.5 mg q. 2 hours p.r.n., Exelon patch daily, mirtazapine 30 mg at night. The patient's Risperdal was increased to 1.5 mg at night today and he is also on Depakote 2000 mg at night. The patient also received one dose of Zyprexa 5 mg IM because of his major behavioral issue on the unit and not wanting to cooperate, also threatening towards the staff. ASSESSMENT: 1. Major neurocognitive disorder, most likely Alzheimer's versus vascular type. 2. Generalized anxiety disorder. PLAN: To continue with the treatment. LENGTH OF STAY: 7 days. GLORIA KIRK MD DR: VIDYA/karli JOB#: [id number] / [id number]
[2018-12-06] MEDS: CYANOCOBALAMIN (VITAMIN B-12) 1,000 MCG TABLET. PO SCH (08:01)
[2018-12-06] MEDS: SERTRALINE 50 MG TABLET. PO SCH (08:01)
[2018-12-06] MEDS: ASPIRIN 81 MG TAB.CHEW PO SCH (08:01)
[2018-12-06] MEDS: DOCUSATE SODIUM 100 MG CAPSULE PO SCH (08:02)
[2018-12-06] MEDS: amLODIPine BESYLATE 10 MG TABLET PO SCH (08:02)
[2018-12-06] MEDS: hydroCHLOROthiazide 12.5 MG CAPSULE PO SCH (08:02)
[2018-12-06] MEDS: RIVASTIGMINE 9.5MG PATCH. TD SCH (08:03)
[2018-12-06] MEDS: CARVEDILOL 3.125 MG TABLET PO SCH ×2 (08:03→16:56)
[2018-12-06 16:19] VITALS: BP 149/70
[2018-12-06] MEDS: risperiDONE 1 MG TABLET. PO SCH (20:46)
[2018-12-06] MEDS: DIVALPROEX 125 MG CAP.SPRINK PO SCH (20:47)
[2018-12-06] MEDS: MIRTAZAPINE 30 MG TABLET PO SCH (20:47)
--- NOTE | 2018-12-07 06:20 | PN ---
DATE: 12/06/2018 SUBJECTIVE: The patient was seen today, met with the staff, chart reviewed. The patient's behavior fluctuates, still irritable and monique. The patient does not like to have a shower. The patient also has problems with high level of anxiety, agitation, and mood swings and also difficult to redirect. The patient also has problems with impulse control, tends to get angry easily. OBSERVATION: VITAL SIGNS: Stable, sleeping around 6-7 hours at night. His appetite is fair. The patient is not having any physical problems. The patient's gait is steady. He has not had any falls. CURRENT MEDICATIONS: His current medications include lorazepam 1 mg daily, Zyprexa 2.5 mg q. 2 hours p.r.n., Exelon patch daily, mirtazapine 30 mg at night. The patient is also on Risperdal that was increased to 1.5 mg at night. He is also on Depakote 2000 mg at night. The patient is not having any side effects to the medications. ASSESSMENT: 1. Major neurocognitive disorder, most likely Alzheimer versus vascular type. 2. Generalized anxiety disorder. PLAN: To continue with the treatment. LENGTH OF STAY: 7 days. GLORIA KIRK MD DR: VIDYA/karli JOB#: [id number] / [id number]
[2018-12-07 06:21] VITALS: BP 163/77
[2018-12-07] MEDS: CYANOCOBALAMIN (VITAMIN B-12) 1,000 MCG TABLET. PO SCH (08:28)
[2018-12-07] MEDS: DOCUSATE SODIUM 100 MG CAPSULE PO SCH (08:28)
[2018-12-07] MEDS: ASPIRIN 81 MG TAB.CHEW PO SCH (08:28)
[2018-12-07] MEDS: RIVASTIGMINE 9.5MG PATCH. TD SCH (08:28)
[2018-12-07] MEDS: SERTRALINE 50 MG TABLET. PO SCH (08:28)
[2018-12-07] MEDS: CARVEDILOL 3.125 MG TABLET PO SCH ×2 (08:28→17:05)
[2018-12-07] MEDS: hydroCHLOROthiazide 12.5 MG CAPSULE PO SCH (08:29)
[2018-12-07] MEDS: amLODIPine BESYLATE 10 MG TABLET PO SCH (08:29)
[2018-12-07] MEDS: LORazepam 1 MG TABLET PO PRN (10:24)
[2018-12-07 15:55] VITALS: BP 154/79
[2018-12-07] MEDS: DIVALPROEX 125 MG CAP.SPRINK PO SCH (19:49)
[2018-12-07] MEDS: risperiDONE 1 MG TABLET. PO SCH (19:49)
[2018-12-07] MEDS: MIRTAZAPINE 30 MG TABLET PO SCH (19:49)
--- NOTE | 2018-12-08 01:48 | PN ---
DATE: 12/07/2018 SUBJECTIVE: The patient was seen today, met with the staff, chart reviewed. The patient's behavior fluctuates. The patient today is withdrawn, staying in bed, not interacting with anyone. The patient also has episodes of increased agitation, angry outbursts. OBSERVATION: VITAL SIGNS: Temperature 98.1, blood pressure 163/77, pulse 81, respirations 16, O2 sat 95%. Slept about 7 hours last night. The patient's appetite is fair. The patient is able to walk and he tends to pace a lot. The patient is also misidentifying people around him and he is getting close to other female patient thinking that she is his . MEDICATIONS: Currently on Zyprexa 2.5 mg q. 2 hours p.r.n., Exelon patch daily, mirtazapine 30 mg at night, lorazepam 1 mg daily. He is also on Risperdal that was increased to 1.5 mg daily, Depakote 2000 mg at night. The patient is not having any side effects. His gait is steady, no falls. ASSESSMENT: 1. Major neurocognitive disorder, most likely Alzheimer's versus vascular type. 2. Generalized anxiety disorder. PLAN: To continue with the treatment. LENGTH OF STAY: 5-7 days. GLORIA KIRK MD DR: VIDYA/karli JOB#: [id number] / [id number]
[2018-12-08 06:07] VITALS: BP 150/84
[2018-12-08] MEDS: ASPIRIN 81 MG TAB.CHEW PO SCH (07:46)
[2018-12-08] MEDS: hydroCHLOROthiazide 12.5 MG CAPSULE PO SCH (07:47)
[2018-12-08] MEDS: DOCUSATE SODIUM 100 MG CAPSULE PO SCH (07:47)
[2018-12-08] MEDS: CYANOCOBALAMIN (VITAMIN B-12) 1,000 MCG TABLET. PO SCH (07:50)
[2018-12-08] MEDS: amLODIPine BESYLATE 10 MG TABLET PO SCH (07:50)
[2018-12-08] MEDS: CARVEDILOL 3.125 MG TABLET PO SCH ×2 (07:52→17:24)
[2018-12-08] MEDS: RIVASTIGMINE 9.5MG PATCH. TD SCH (07:54)
[2018-12-08] MEDS: SERTRALINE 50 MG TABLET. PO SCH (08:00)
[2018-12-08] MEDS ORDERED: DIVALPROEX 125 MG CAP.SPRINK PO PRN (15:30)
[2018-12-08 16:03] VITALS: BP 119/75
[2018-12-08] MEDS: MIRTAZAPINE 30 MG TABLET PO SCH (20:32)
[2018-12-08] MEDS: risperiDONE 1 MG TABLET. PO SCH (20:32)
[2018-12-08] MEDS: DIVALPROEX ER 500 MG TAB.ER.24H PO SCH (20:34)
--- NOTE | 2018-12-09 00:29 | PN ---
DATE: 12/08/2018 SUBJECTIVE: The patient was seen today, met with the staff, chart reviewed. The patient's behavior fluctuates. Lately has been irritable, monique, avoiding staff and also is obsessed with another resident and thinks that his . The patient is also resistive to care, not able to follow directions. The patient continues to be an elopement risk. OBSERVATION: VITAL SIGNS: Temperature 98.8, blood pressure 150/84, pulse 71, respiration 18, O2 sat 96%. Slept about 7 hours last night. His appetite is fair. The patient is not having any physical complaints. MEDICATIONS: The patient's current medications include Zyprexa 2.5 mg q. 2 hours p.r.n., Exelon patch daily, mirtazapine 30 mg at night, lorazepam 1 mg daily. The patient is also on Risperdal 1.5 mg daily, Depakote 2000 mg at night. The patient is not having any side effects. Gait is steady, no falls. ASSESSMENT: 1. Major neurocognitive disorder, most likely Alzheimer's versus vascular type. 2. Generalized anxiety disorder. PLAN: To continue with the treatment. LENGTH OF STAY: 5-7 days. GLORIA KIRK MD DR: VIDYA/karli JOB#: [id number] / [id number]
[2018-12-09 06:26] VITALS: BP 118/75
[2018-12-09 06:28] VITALS: BP 149/76
[2018-12-09] MEDS: CARVEDILOL 3.125 MG TABLET PO SCH ×2 (07:26→17:54)
[2018-12-09] MEDS: ASPIRIN 81 MG TAB.CHEW PO SCH (07:27)
[2018-12-09] MEDS: hydroCHLOROthiazide 12.5 MG CAPSULE PO SCH (07:28)
[2018-12-09] MEDS: DOCUSATE SODIUM 100 MG CAPSULE PO SCH (07:28)
[2018-12-09] MEDS: amLODIPine BESYLATE 10 MG TABLET PO SCH (07:29)
[2018-12-09] MEDS: SERTRALINE 50 MG TABLET. PO SCH (07:30)
[2018-12-09] MEDS: CYANOCOBALAMIN (VITAMIN B-12) 1,000 MCG TABLET. PO SCH (07:30)
[2018-12-09] MEDS: RIVASTIGMINE 9.5MG PATCH. TD SCH (07:33)
[2018-12-09 08:12] LABS: BASO % 1 % (0-3); EOS # 0.1 x10^3/uL (0.0-0.7); EOS % 1 % (0-3); HEMATOCRIT 44.5 % (39.0-53.0); HEMOGLOBIN 15.1 g/dL (13.0-17.5); LYMPH # 1.8 x10^3/uL (1.0-4.8); LYMPH % 26 % (24-48); MEAN CORPUSCULAR HEMOGLOBIN 33 pg (25-35); MEAN CORPUSCULAR HGB CONC 34 g/dL (31-37); MEAN CORPUSCULAR VOLUME 97 fL (79-100); MONO # 0.9 x10^3/uL (0.0-1.1); MONO % 13 % (0-9); NEUT % 59 % (31-73); PLATELET COUNT 154 x10^3/uL (140-400); WHITE BLOOD COUNT 6.8 x10^3/uL (4.0-11.0)
[2018-12-09 08:19] LABS: ALBUMIN 3.4 g/dL (3.4-5.0); ALBUMIN/GLOBULIN RATIO 0.8 (1.0-1.7); CREATININE 1.4 mg/dL (0.7-1.3); GFR 48.8; POTASSIUM 3.7 mmol/L (3.5-5.1); TOTAL BILIRUBIN 0.4 mg/dL (0.2-1.0); TOTAL PROTEIN 7.5 g/dL (6.4-8.2)
[2018-12-09] MEDS: LORazepam 1 MG TABLET PO PRN (14:24)
[2018-12-09] MEDS: DIVALPROEX ER 500 MG TAB.ER.24H PO SCH (19:55)
[2018-12-09] MEDS: MIRTAZAPINE 30 MG TABLET PO SCH (19:55)
[2018-12-09] MEDS: risperiDONE 2 MG TABLET. PO SCH (19:56)
--- NOTE | 2018-12-10 06:16 | PN ---
DATE: 12/09/2018 SUBJECTIVE: The patient was seen today, met with the staff, chart reviewed. The patient's behavior remains the same. The patient has been irritable, angry, pacing, threatening and exhibiting impulse control problems. The patient does seem to argument and also getting paranoid. Staff reports lately he has been taking his medications regularly. OBSERVATION: VITAL SIGNS: Temperature 97.5, blood pressure 149/76, pulse 65, respirations 20, O2 sat 95%. Slept about 7 hours last night. CURRENT MEDICATIONS: The patient's current medications include Zyprexa 2.5 mg q.2 hours p.r.n., Exelon patch daily, mirtazapine 30 mg at night, lorazepam 1 mg daily, also on Risperdal 1.5 mg daily, Depakote 2000 mg at night. The patient denies of any side effects. His gait is steady, no falls. ASSESSMENT: 1. Major neurocognitive disorder, most likely Alzheimer's versus vascular type. 2. Generalized anxiety disorder. PLAN: To continue with the treatment. LENGTH OF STAY: Five to seven days. GLORIA KIRK MD DR: VIDYA/karli JOB#: [id number] / [id number]
[2018-12-10 06:25] VITALS: BP 125/65
[2018-12-10] MEDS: ASPIRIN 81 MG TAB.CHEW PO SCH (08:33)
[2018-12-10] MEDS: DOCUSATE SODIUM 100 MG CAPSULE PO SCH (08:33)
[2018-12-10] MEDS: CARVEDILOL 3.125 MG TABLET PO SCH ×2 (08:33→17:00)
[2018-12-10] MEDS: amLODIPine BESYLATE 10 MG TABLET PO SCH (08:34)
[2018-12-10] MEDS: hydroCHLOROthiazide 12.5 MG CAPSULE PO SCH (08:34)
[2018-12-10] MEDS: SERTRALINE 50 MG TABLET. PO SCH (08:34)
[2018-12-10] MEDS: CYANOCOBALAMIN (VITAMIN B-12) 1,000 MCG TABLET. PO SCH (08:34)
[2018-12-10] MEDS: RIVASTIGMINE 9.5MG PATCH. TD SCH (08:34)
[2018-12-10] MEDS: LORazepam 1 MG TABLET PO PRN ×2 (09:42→17:00)
[2018-12-10 15:51] VITALS: BP 158/90
[2018-12-10] MEDS: risperiDONE 2 MG TABLET. PO SCH (19:33)
[2018-12-10] MEDS: MIRTAZAPINE 30 MG TABLET PO SCH (19:34)
[2018-12-10] MEDS: DIVALPROEX ER 500 MG TAB.ER.24H PO SCH (19:34)
--- NOTE | 2018-12-10 22:06 | PDOC ---
Exam Note: Rex Note: Please also refer to the separate dictated note~for this date of service dictated separately.~Patient seen individually. Discussed the patient with Nursing staff reviewed the chart.~Reviewed interim history and current functioning. Reviewed vital signs,~Labs/ Radiology~and current medications noted below. Continue current treatment with the changes noted in the dictated addendum note Assessment: Vital Signs/I&O: Vital Signs Date Time Temp Pulse Resp B/P (MAP) Pulse Ox O2 Delivery O2 Flow Rate FiO2 12/10/18 17:00 64 158/90 12/10/18 15:51 97.6 16 95 Room Air I & O 12/09/18 12/09/18 12/10/18 15:00 23:00 07:00 Intake Total 720 ml 240 ml 120 ml Balance 720 ml 240 ml 120 ml Current Medications: I have reviewed the current psychotropics carefully including drug interactions. Risk benefit ratio favors no change other than as noted in my dictated progress note. Diagnosis: Problems: (1) Anxiety disorder (2) Dementia in Alzheimer's disease with delusions (3) Dementia in Alzheimer's disease with depression (4) Dementia, vascular, with delusions (5) Dementia, vascular, with depression (6) Impulse control disorder GILDARDO CRAWFORD MD Dec 10, 2018 22:06
[2018-12-11 06:24] VITALS: BP 119/71
[2018-12-11] MEDS: CARVEDILOL 3.125 MG TABLET PO SCH ×2 (08:16→16:49)
[2018-12-11] MEDS: ASPIRIN 81 MG TAB.CHEW PO SCH (08:17)
[2018-12-11] MEDS: RIVASTIGMINE 9.5MG PATCH. TD SCH (08:17)
[2018-12-11] MEDS: hydroCHLOROthiazide 12.5 MG CAPSULE PO SCH (08:17)
[2018-12-11] MEDS: CYANOCOBALAMIN (VITAMIN B-12) 1,000 MCG TABLET. PO SCH (08:17)
[2018-12-11] MEDS: amLODIPine BESYLATE 10 MG TABLET PO SCH (08:17)
[2018-12-11] MEDS: DOCUSATE SODIUM 100 MG CAPSULE PO SCH (08:17)
[2018-12-11] MEDS ORDERED: SERTRALINE 25 MG TABLET. PO SCH (09:00)
[2018-12-11] MEDS: LORazepam 1 MG TABLET PO PRN (09:46)
[2018-12-11 16:54] VITALS: BP 149/82
[2018-12-11] MEDS: DIVALPROEX ER 500 MG TAB.ER.24H PO SCH (19:44)
[2018-12-11] MEDS: risperiDONE 2 MG TABLET. PO SCH (19:44)
[2018-12-11] MEDS: MIRTAZAPINE 30 MG TABLET PO SCH (19:44)
--- NOTE | 2018-12-11 22:47 | PDOC ---
Exam Note: Rex Note: Please also refer to the separate dictated note~for this date of service dictated separately.~Patient seen individually. Discussed the patient with Nursing staff reviewed the chart.~Reviewed interim history and current functioning. Reviewed vital signs,~Labs/ Radiology~and current medications noted below. Continue current treatment with the changes noted in the dictated addendum note Assessment: Vital Signs/I&O: Vital Signs Date Time Temp Pulse Resp B/P (MAP) Pulse Ox O2 Delivery O2 Flow Rate FiO2 12/11/18 16:54 98.5 67 16 149/82 (104) 97 12/10/18 15:51 Room Air I & O 12/10/18 12/10/18 12/11/18 14:59 22:59 06:59 Intake Total 600 ml 360 ml 120 ml Balance 600 ml 360 ml 120 ml Current Medications: Meds: Current Medications Medications (Trade) Dose Ordered Sig/Carin Route PRN Reason Start Time Stop Time Status Last Admin Dose Admin Sertraline HCl (Zoloft) 75 mg DAILY PO 12/11/18 09:00 12/11/18 20:27 DC 12/11/18 08:19 I have reviewed the current psychotropics carefully including drug interactions. Risk benefit ratio favors no change other than as noted in my dictated progress note. Diagnosis: Problems: (1) Anxiety disorder (2) Dementia in Alzheimer's disease with delusions (3) Dementia in Alzheimer's disease with depression (4) Dementia, vascular, with delusions (5) Dementia, vascular, with depression (6) Impulse control disorder GILDARDO CRAWFORD MD Dec 11, 2018 22:47
[2018-12-12 06:10] VITALS: BP 120/62
[2018-12-12] MEDS: CARVEDILOL 3.125 MG TABLET PO SCH ×2 (08:00→18:01)
[2018-12-12] MEDS: ASPIRIN 81 MG TAB.CHEW PO SCH (11:36)
[2018-12-12] MEDS: DOCUSATE SODIUM 100 MG CAPSULE PO SCH (11:36)
[2018-12-12] MEDS: hydroCHLOROthiazide 12.5 MG CAPSULE PO SCH (11:37)
[2018-12-12] MEDS: amLODIPine BESYLATE 10 MG TABLET PO SCH (11:39)
[2018-12-12] MEDS: RIVASTIGMINE 9.5MG PATCH. TD SCH (11:39)
[2018-12-12] MEDS: CYANOCOBALAMIN (VITAMIN B-12) 1,000 MCG TABLET. PO SCH (11:39)
[2018-12-12 16:40] VITALS: BP 134/78
[2018-12-12] MEDS: DIVALPROEX ER 500 MG TAB.ER.24H PO SCH (20:31)
[2018-12-12] MEDS: MIRTAZAPINE 30 MG TABLET PO SCH (20:31)
[2018-12-12] MEDS: risperiDONE 2 MG TABLET. PO SCH (20:32)
--- NOTE | 2018-12-12 22:48 | PDOC ---
Exam Note: Rex Note: Please also refer to the separate dictated note~for this date of service dictated separately.~Patient seen individually. Discussed the patient with Nursing staff reviewed the chart.~Reviewed interim history and current functioning. Reviewed vital signs,~Labs/ Radiology~and current medications noted below. Continue current treatment with the changes noted in the dictated addendum note Assessment: Vital Signs/I&O: Vital Signs Date Time Temp Pulse Resp B/P (MAP) Pulse Ox O2 Delivery O2 Flow Rate FiO2 12/12/18 18:01 70 134/78 12/12/18 16:40 98.4 18 98 12/10/18 15:51 Room Air I & O 12/11/18 12/11/18 12/12/18 15:00 23:00 07:00 Intake Total 720 ml 240 ml Balance 720 ml 240 ml Current Medications: Meds: Current Medications Medications (Trade) Dose Ordered Sig/Carin Route PRN Reason Start Time Stop Time Status Last Admin Dose Admin Fluvoxamine Maleate (Luvox) 25 mg DAILY PO 12/12/18 09:00 12/13/18 09:01 12/12/18 11:37 I have reviewed the current psychotropics carefully including drug interactions. Risk benefit ratio favors no change other than as noted in my dictated progress note. Diagnosis: Problems: (1) Anxiety disorder (2) Dementia in Alzheimer's disease with delusions (3) Dementia in Alzheimer's disease with depression (4) Dementia, vascular, with delusions (5) Dementia, vascular, with depression (6) Impulse control disorder GILDARDO CRAWFORD MD Dec 12, 2018 22:48
--- NOTE | 2018-12-13 01:33 | PN ---
DATE: PSYCHIATRIC PROGRESS NOTE This late entry 12/10/2017 covers elements not covered in my initial note. SUBJECTIVE: I met with the patient in the evening. Reviewed information from Dr. Saul over the past [address] Saul covered for me. The patient seems to get worked up regarding one of the female demented patients on the unit, believes she is his spouse. Nursing staff had called me as an emergency due to his agitation. We added Ativan and Zyprexa p.r.n. He received this at 10:00 a.m. and 1715 hours. REVIEW OF SYSTEMS: No CV, , pulmonary, eye, ENT system symptoms on review. Reliability poor. MENTAL STATUS EXAM: Oriented to himself. Insight, judgment, recent and remote memory, attention, concentration, fund of knowledge poor, consistent with his diagnosis mentioned in my initial note. PLAN: Increase Zoloft from 50 mg a day to 75 mg a day. Continue Zyprexa p.r.n. Rest unchanged for now. GILDARDO CRAWFORD MD DR: INOCENCIO/karli JOB#: [id number] / [id number]
[2018-12-13 06:15] VITALS: BP 132/79
[2018-12-13] MEDS: ASPIRIN 81 MG TAB.CHEW PO SCH (07:48)
[2018-12-13] MEDS: CARVEDILOL 3.125 MG TABLET PO SCH ×2 (07:48→18:29)
[2018-12-13] MEDS: DOCUSATE SODIUM 100 MG CAPSULE PO SCH (07:49)
[2018-12-13] MEDS: hydroCHLOROthiazide 12.5 MG CAPSULE PO SCH (07:50)
[2018-12-13] MEDS: CYANOCOBALAMIN (VITAMIN B-12) 1,000 MCG TABLET. PO SCH (07:52)
[2018-12-13] MEDS: amLODIPine BESYLATE 10 MG TABLET PO SCH (07:52)
[2018-12-13] MEDS: RIVASTIGMINE 9.5MG PATCH. TD SCH (07:53)
--- NOTE | 2018-12-13 15:50 | PN ---
DATE: 12/11/2018 PSYCHIATRIC PROGRESS NOTE This late entry 12/11/2018 covers elements not covered in my initial note. SUBJECTIVE: I met with the patient in the evening. The patient slept 7 hours previous night. Previous evening, he was agitated, received multiple PRN's, "drowsy" in the evening. During the day, on 12/11/2018, he was fixated on one of the other female demented patients, quite obsessed, believes she is his . REVIEW OF SYSTEMS: No CV, , pulmonary, eye, ENT system symptoms on review. Reliability poor. MENTAL STATUS EXAM: Oriented to himself. Insight, judgment, recent and remote memory, attention, concentration, fund of knowledge poor, consistent with his diagnosis mentioned in my initial note. PLAN: No change from initial note, but given his marked OCD behaviors, we will change the Zoloft to 75 mg a day to Luvox 25 mg at bedtime for 2 days, then 50 for 2 days and then 75 mg at bedtime thereafter. Rest unchanged from initial note. MAN Jennifer CRAWFORD MD DR: INOCENCIO/karli JOB#: [id number] / [id number]
[2018-12-13 16:17] VITALS: BP 117/74
[2018-12-13] MEDS: risperiDONE 2 MG TABLET. PO SCH (19:49)
[2018-12-13] MEDS: MIRTAZAPINE 30 MG TABLET PO SCH (19:50)
[2018-12-13] MEDS: DIVALPROEX ER 500 MG TAB.ER.24H PO SCH (19:50)
--- NOTE | 2018-12-13 22:43 | PDOC ---
Exam Note: Rex Note: Please also refer to the separate dictated note~for this date of service dictated separately.~Patient seen individually. Discussed the patient with Nursing staff reviewed the chart.~Reviewed interim history and current functioning. Reviewed vital signs,~Labs/ Radiology~and current medications noted below. Continue current treatment with the changes noted in the dictated addendum note Assessment: Vital Signs/I&O: Vital Signs Date Time Temp Pulse Resp B/P (MAP) Pulse Ox O2 Delivery O2 Flow Rate FiO2 12/13/18 18:29 65 117/74 12/13/18 16:17 97.6 16 97 12/10/18 15:51 Room Air I & O 12/12/18 12/12/18 12/13/18 14:59 22:59 06:59 Intake Total 360 ml 240 ml 240 ml Balance 360 ml 240 ml 240 ml Current Medications: I have reviewed the current psychotropics carefully including drug interactions. Risk benefit ratio favors no change other than as noted in my dictated progress note. Diagnosis: Problems: (1) Anxiety disorder (2) Dementia in Alzheimer's disease with delusions (3) Dementia in Alzheimer's disease with depression (4) Dementia, vascular, with delusions (5) Dementia, vascular, with depression (6) Impulse control disorder GILDARDO CRAWFORD MD Dec 13, 2018 22:42
[2018-12-14 06:21] VITALS: BP 127/80
[2018-12-14] MEDS: ASPIRIN 81 MG TAB.CHEW PO SCH (07:29)
[2018-12-14] MEDS: CYANOCOBALAMIN (VITAMIN B-12) 1,000 MCG TABLET. PO SCH (07:30)
[2018-12-14] MEDS: CARVEDILOL 3.125 MG TABLET PO SCH ×2 (07:30→17:18)
[2018-12-14] MEDS: hydroCHLOROthiazide 12.5 MG CAPSULE PO SCH (07:31)
[2018-12-14] MEDS: DOCUSATE SODIUM 100 MG CAPSULE PO SCH (07:31)
[2018-12-14] MEDS: amLODIPine BESYLATE 10 MG TABLET PO SCH (07:31)
[2018-12-14] MEDS: RIVASTIGMINE 9.5MG PATCH. TD SCH (07:32)
[2018-12-14 14:40] LABS: BASO # 0.1 x10^3/uL (0.0-0.2); BASO % 1 % (0-3); EOS # 0.1 x10^3/uL (0.0-0.7); EOS % 1 % (0-3); HEMOGLOBIN 15.1 g/dL (13.0-17.5); LYMPH # 1.4 x10^3/uL (1.0-4.8); LYMPH % 21 % (24-48); MEAN CORPUSCULAR HEMOGLOBIN 33 pg (25-35); MEAN CORPUSCULAR HGB CONC 34 g/dL (31-37); MEAN CORPUSCULAR VOLUME 97 fL (79-100); MONO # 0.8 x10^3/uL (0.0-1.1); MONO % 13 % (0-9); NEUT # 4.1 x10^3uL (1.8-7.7); NEUT % 64 % (31-73); PLATELET COUNT 156 x10^3/uL (140-400); RED BLOOD COUNT 4.64 x10^6/uL (4.30-5.70); RED CELL DISTRIBUTION WIDTH 13.1 % (11.5-14.5); WHITE BLOOD COUNT 6.4 x10^3/uL (4.0-11.0)
[2018-12-14 14:52] LABS: ALBUMIN/GLOBULIN RATIO 0.7 (1.0-1.7); CALCIUM 9.2 mg/dL (8.5-10.1); CREATININE 1.5 mg/dL (0.7-1.3); POTASSIUM 4.1 mmol/L (3.5-5.1); TOTAL BILIRUBIN 0.4 mg/dL (0.2-1.0); TOTAL PROTEIN 7.1 g/dL (6.4-8.2)
[2018-12-14 14:57] LABS: VAL ACID 101 mcg/mL (50-100)
[2018-12-14 15:44] VITALS: BP 129/73
--- NOTE | 2018-12-14 17:19 | PN ---
DATE: 12/12/2018 PSYCHIATRIC PROGRESS NOTE This is late on entry 12/12/2018. Covers elements not covered in my initial note. SUBJECTIVE: I met with the patient in the evening. The patient slept 6 hours previous night and has been more redirectable, less paranoid, certainly still confused. REVIEW OF SYSTEMS: No CV, , pulmonary, eye, ENT system symptoms on review. Reliability poor. MENTAL STATUS EXAM: Oriented to himself. Insight, judgment, recent and remote memory, attention, concentration, fund of knowledge poor, consistent with his diagnosis mentioned in my initial note. PLAN: No change from initial note. Luvox has been initiated and we will gradually increase to reach 75 mg a day. Rest unchanged. MAN Jennifer CRAWFORD MD DR: INOCENCIO/karli JOB#: [id number] / [id number]
[2018-12-14] MEDS: MIRTAZAPINE 30 MG TABLET PO SCH (19:37)
[2018-12-14] MEDS: risperiDONE 2 MG TABLET. PO SCH (19:37)
[2018-12-14] MEDS: DIVALPROEX ER 500 MG TAB.ER.24H PO SCH ×2 (19:48→21:00)
[2018-12-14] MEDS: DIVALPROEX ER 250 MG TAB.ER.24H. PO SCH (21:00)
--- NOTE | 2018-12-14 23:06 | PDOC ---
Exam Note: Rxe Note: Please also refer to the separate dictated note~for this date of service dictated separately.~Patient seen individually. Discussed the patient with Nursing staff reviewed the chart.~Reviewed interim history and current functioning. Reviewed vital signs,~Labs/ Radiology~and current medications noted below. Continue current treatment with the changes noted in the dictated addendum note Assessment: Vital Signs/I&O: Vital Signs Date Time Temp Pulse Resp B/P (MAP) Pulse Ox O2 Delivery O2 Flow Rate FiO2 12/14/18 17:18 62 129/73 12/14/18 15:44 97.9 17 95 12/14/18 06:21 Room Air I & O 12/13/18 12/13/18 12/14/18 15:00 23:00 07:00 Intake Total 480 ml 360 ml Balance 480 ml 360 ml Labs: Laboratory Tests Test 12/14/18 14:27 White Blood Count 6.4 x10^3/uL (4.0-11.0) Red Blood Count 4.64 x10^6/uL (4.30-5.70) Hemoglobin 15.1 g/dL (13.0-17.5) Hematocrit 45.0 % (39.0-53.0) Mean Corpuscular Volume 97 fL (79-100) Mean Corpuscular Hemoglobin 33 pg (25-35) Mean Corpuscular Hemoglobin Concent 34 g/dL (31-37) Red Cell Distribution Width 13.1 % (11.5-14.5) Platelet Count 156 x10^3/uL (140-400) Neutrophils (%) (Auto) 64 % (31-73) Lymphocytes (%) (Auto) 21 % (24-48) L Monocytes (%) (Auto) 13 % (0-9) H Eosinophils (%) (Auto) 1 % (0-3) Basophils (%) (Auto) 1 % (0-3) Neutrophils # (Auto) 4.1 x10^3uL (1.8-7.7) Lymphocytes # (Auto) 1.4 x10^3/uL (1.0-4.8) Monocytes # (Auto) 0.8 x10^3/uL (0.0-1.1) Eosinophils # (Auto) 0.1 x10^3/uL (0.0-0.7) Basophils # (Auto) 0.1 x10^3/uL (0.0-0.2) Sodium Level 141 mmol/L (136-145) Potassium Level 4.1 mmol/L (3.5-5.1) Chloride Level 102 mmol/L (98-107) Carbon Dioxide Level 32 mmol/L (21-32) Anion Gap 7 (6-14) Blood Urea Nitrogen 36 mg/dL (8-26) H Creatinine 1.5 mg/dL (0.7-1.3) H Estimated GFR (Cockcroft-Gault) 45.0 BUN/Creatinine Ratio 24 (6-20) H Glucose Level 142 mg/dL (70-99) H Calcium Level 9.2 mg/dL (8.5-10.1) Total Bilirubin 0.4 mg/dL (0.2-1.0) Aspartate Amino Transferase (AST) 23 U/L (15-37) Alanine Aminotransferase (ALT) 35 U/L (16-63) Alkaline Phosphatase 51 U/L (46-116) Ammonia 25 mcmol/L (11-34) Total Protein 7.1 g/dL (6.4-8.2) Albumin 3.0 g/dL (3.4-5.0) L Albumin/Globulin Ratio 0.7 (1.0-1.7) L Valproic Acid Level 101 mcg/mL (50-100) H Valproic Acid Last Dose Date 12/13/2018 Valproic Acid Last Dose Time 2100 Current Medications: Meds: Current Medications Medications (Trade) Dose Ordered Sig/Carin Route PRN Reason Start Time Stop Time Status Last Admin Dose Admin Fluvoxamine Maleate (Luvox) 50 mg DAILY PO 12/14/18 09:00 12/15/18 09:01 12/14/18 09:19 I have reviewed the current psychotropics carefully including drug interactions. Risk benefit ratio favors no change other than as noted in my dictated progress note. Diagnosis: Problems: (1) Anxiety disorder (2) Dementia in Alzheimer's disease with delusions (3) Dementia in Alzheimer's disease with depression (4) Dementia, vascular, with delusions (5) Dementia, vascular, with depression (6) Impulse control disorder GILDARDO CRAWFORD MD Dec 14, 2018 23:06
--- NOTE | 2018-12-15 02:17 | PN ---
DATE: 12/13/2018 PSYCHIATRIC PROGRESS NOTE. This late entry of 12/13/2018 covers elements not covered in my initial note. SUBJECTIVE: I met with the patient on the evening of 12/13/2018. The patient slept 6-1/2 hours previous night. He remains confused, alert, oriented x 1, agitated earlier in the day, had to be in the [place] from the dining room. REVIEW OF SYSTEMS: No CV, , pulmonary, eye, ENT system symptoms on review. Reliability poor. MENTAL STATUS EXAM: Oriented to himself. Insight, judgment, recent and remote memory, attention, concentration, fund of knowledge poor, consistent with his diagnosis mentioned in my initial note. PLAN: No change from initial note. MAN Jennifer CRAWFORD MD DR: INOCENCIO/karli JOB#: [id number] / [id number]
[2018-12-15 06:00] VITALS: BP 113/70
[2018-12-15] MEDS: RIVASTIGMINE 9.5MG PATCH. TD SCH (08:04)
[2018-12-15] MEDS: amLODIPine BESYLATE 10 MG TABLET PO SCH (08:05)
[2018-12-15] MEDS: CYANOCOBALAMIN (VITAMIN B-12) 1,000 MCG TABLET. PO SCH (08:05)
[2018-12-15] MEDS: ASPIRIN 81 MG TAB.CHEW PO SCH (08:05)
[2018-12-15] MEDS: hydroCHLOROthiazide 12.5 MG CAPSULE PO SCH (08:06)
[2018-12-15] MEDS: DOCUSATE SODIUM 100 MG CAPSULE PO SCH (08:08)
[2018-12-15] MEDS: CARVEDILOL 3.125 MG TABLET PO SCH ×2 (08:08→17:00)
[2018-12-15 16:03] VITALS: BP 97/58
[2018-12-15] MEDS: DIVALPROEX ER 250 MG TAB.ER.24H. PO SCH (19:50)
[2018-12-15] MEDS: MIRTAZAPINE 30 MG TABLET PO SCH (19:51)
[2018-12-15] MEDS: DIVALPROEX ER 500 MG TAB.ER.24H PO SCH (19:51)
[2018-12-15] MEDS: risperiDONE 2 MG TABLET. PO SCH (19:51)
[2018-12-15] MEDS ORDERED: DIVALPROEX 125 MG CAP.SPRINK PO PRN (21:00)
--- NOTE | 2018-12-15 22:47 | PDOC ---
Exam Note: Rex Note: Please also refer to the separate dictated note~for this date of service dictated separately.~Patient seen individually. Discussed the patient with Nursing staff reviewed the chart.~Reviewed interim history and current functioning. Reviewed vital signs,~Labs/ Radiology~and current medications noted below. Continue current treatment with the changes noted in the dictated addendum note Assessment: Vital Signs/I&O: Vital Signs Date Time Temp Pulse Resp B/P (MAP) Pulse Ox O2 Delivery O2 Flow Rate FiO2 12/15/18 17:00 83 97/58 12/15/18 16:03 97.9 18 94 12/14/18 06:21 Room Air I & O 12/14/18 12/14/18 12/15/18 15:00 23:00 07:00 Intake Total 240 ml 240 ml Balance 240 ml 240 ml Current Medications: I have reviewed the current psychotropics carefully including drug interactions. Risk benefit ratio favors no change other than as noted in my dictated progress note. Diagnosis: Problems: (1) Anxiety disorder (2) Dementia in Alzheimer's disease with delusions (3) Dementia in Alzheimer's disease with depression (4) Dementia, vascular, with delusions (5) Dementia, vascular, with depression (6) Impulse control disorder GILDARDO CRAWFORD MD Dec 15, 2018 22:47
[2018-12-16 05:58] VITALS: BP 126/68
[2018-12-16] MEDS: amLODIPine BESYLATE 10 MG TABLET PO SCH (07:40)
[2018-12-16] MEDS: ASPIRIN 81 MG TAB.CHEW PO SCH (07:41)
[2018-12-16] MEDS: CARVEDILOL 3.125 MG TABLET PO SCH ×2 (07:41→17:34)
[2018-12-16] MEDS: CYANOCOBALAMIN (VITAMIN B-12) 1,000 MCG TABLET. PO SCH (07:41)
[2018-12-16] MEDS: hydroCHLOROthiazide 12.5 MG CAPSULE PO SCH (07:41)
[2018-12-16] MEDS: DOCUSATE SODIUM 100 MG CAPSULE PO SCH (07:41)
[2018-12-16] MEDS: RIVASTIGMINE 9.5MG PATCH. TD SCH (07:44)
[2018-12-16] MEDS: DIVALPROEX 125 MG CAP.SPRINK PO SCH ×2 (07:48→19:39)
[2018-12-16 16:25] VITALS: BP 151/88
[2018-12-16] MEDS: risperiDONE 2 MG TABLET. PO SCH (19:37)
[2018-12-16] MEDS: MIRTAZAPINE 30 MG TABLET PO SCH (19:37)
--- NOTE | 2018-12-16 20:02 | PN ---
DATE: 12/15/2018 PSYCHIATRIC PROGRESS NOTE This is a late entry 12/15/2018, covers the elements not covered in my initial note. SUBJECTIVE: I met with the patient evening of 12/15/2018. The patient slept 7 hours previous night. He has done better during the day, had a good day, was calm, somewhat confused, compliant with the medications, refused p.m. medications. Nursing staff had called me as an emergency. His valproic acid level was 101 and we have changed the Depakote extended release from 2000 mg at bedtime mg to 1750 mg at bedtime, but per nursing report, he is noncompliant with taking the extended release. We will change to Depakote Sprinkles 750 a.m. and 1000 mg at bedtime and then check labs and valproic acid level in 3 days. REVIEW OF SYSTEMS: No CV, , pulmonary, eye, ENT system symptoms on review. Reliability is poor. MENTAL STATUS EXAM: Oriented to himself. Poor eye contact. Insight and judgment, recent and remote memory, attention, concentration, fund of knowledge poor, consistent with his diagnosis mentioned in my initial note. PLAN: No change from initial note other than what is noted above. GILDARDO CRAWFORD MD DR: INOCENCIO/karli JOB#: [id number] / [id number]
--- NOTE | 2018-12-16 22:15 | PDOC ---
Exam Note: Rex Note: Please also refer to the separate dictated note~for this date of service dictated separately.~Patient seen individually. Discussed the patient with Nursing staff reviewed the chart.~Reviewed interim history and current functioning. Reviewed vital signs,~Labs/ Radiology~and current medications noted below. Continue current treatment with the changes noted in the dictated addendum note Assessment: Vital Signs/I&O: Vital Signs Date Time Temp Pulse Resp B/P (MAP) Pulse Ox O2 Delivery O2 Flow Rate FiO2 12/16/18 17:34 69 151/88 12/16/18 16:25 97.4 16 97 12/16/18 05:58 Room Air I & O 12/15/18 12/15/18 12/16/18 14:59 22:59 06:59 Intake Total 480 ml 240 ml 240 ml Balance 480 ml 240 ml 240 ml Current Medications: Meds: Current Medications Medications (Trade) Dose Ordered Sig/Carin Route PRN Reason Start Time Stop Time Status Last Admin Dose Admin Fluvoxamine Maleate (Luvox) 75 mg DAILY PO 12/16/18 09:00 12/16/18 07:48 Divalproex Sodium (Depakote Sprinkles) 750 mg DAILY PO 12/16/18 09:00 12/16/18 07:48 Divalproex Sodium (Depakote Sprinkles) 1,000 mg HS PO 12/16/18 21:00 12/16/18 19:39 I have reviewed the current psychotropics carefully including drug interactions. Risk benefit ratio favors no change other than as noted in my dictated progress note. Diagnosis: Problems: (1) Anxiety disorder (2) Dementia in Alzheimer's disease with delusions (3) Dementia in Alzheimer's disease with depression (4) Dementia, vascular, with delusions (5) Dementia, vascular, with depression (6) Impulse control disorder GILDARDO CRAWFORD MD Dec 16, 2018 22:15
--- NOTE | 2018-12-16 23:56 | PN ---
DATE: 12/14/2018 PSYCHIATRIC PROGRESS NOTE This late entry 12/14/2018 covers elements not covered in my initial note. SUBJECTIVE: I met with the patient in the evening of 12/14/2018 and staffed at a treatment team meeting with the entire team earlier in the day. The patient slept 7 hours previous night. Appetite 100%, intermittently agitated, noncompliant. We will be checking CBC, CMP, valproic acid level, ammonia level in the morning of 12/15/2018. He had to be in the quiet hallway with one of the other demented patients since he was agitated with one of the female demented patients, believes she is his . REVIEW OF SYSTEMS: No CV, , pulmonary, eye, ENT system symptoms on review. Reliability poor. MENTAL STATUS EXAM: Oriented to himself. Insight, judgment, recent and remote memory, attention, concentration, fund of knowledge poor, consistent with his diagnosis mentioned in my initial note. PLAN: No change from initial note, but we will check labs on the morning of 12/15/2018. Make further adjustments thereafter for the Depakote and other psychotropic. MAN Jennifer CRAWFORD MD DR: INOCENCIO/karli JOB#: [id number] / [id number]
[2018-12-17 06:09] VITALS: BP 123/68
[2018-12-17] MEDS: RIVASTIGMINE 9.5MG PATCH. TD SCH (08:35)
[2018-12-17] MEDS: ASPIRIN 81 MG TAB.CHEW PO SCH (08:36)
[2018-12-17] MEDS: CARVEDILOL 3.125 MG TABLET PO SCH ×2 (08:36→16:36)
[2018-12-17] MEDS: DOCUSATE SODIUM 100 MG CAPSULE PO SCH (08:36)
[2018-12-17] MEDS: hydroCHLOROthiazide 12.5 MG CAPSULE PO SCH (08:36)
[2018-12-17] MEDS: DIVALPROEX 125 MG CAP.SPRINK PO SCH ×2 (08:36→19:30)
[2018-12-17] MEDS: CYANOCOBALAMIN (VITAMIN B-12) 1,000 MCG TABLET. PO SCH (08:37)
[2018-12-17] MEDS: amLODIPine BESYLATE 10 MG TABLET PO SCH (08:37)
[2018-12-17 16:00] VITALS: BP 134/78
[2018-12-17] MEDS: risperiDONE 2 MG TABLET. PO SCH (19:29)
[2018-12-17] MEDS: MIRTAZAPINE 30 MG TABLET PO SCH (19:29)
--- NOTE | 2018-12-17 22:56 | PDOC ---
Exam Note: Rex Note: Please also refer to the separate dictated note~for this date of service dictated separately.~Patient seen individually. Discussed the patient with Nursing staff reviewed the chart.~Reviewed interim history and current functioning. Reviewed vital signs,~Labs/ Radiology~and current medications noted below. Continue current treatment with the changes noted in the dictated addendum note Assessment: Vital Signs/I&O: Vital Signs Date Time Temp Pulse Resp B/P (MAP) Pulse Ox O2 Delivery O2 Flow Rate FiO2 12/17/18 16:36 69 134/78 12/17/18 16:00 98.2 20 98 12/16/18 05:58 Room Air I & O 12/16/18 12/16/18 12/17/18 15:00 23:00 07:00 Intake Total 600 ml 240 ml Balance 600 ml 240 ml Current Medications: I have reviewed the current psychotropics carefully including drug interactions. Risk benefit ratio favors no change other than as noted in my dictated progress note. Diagnosis: Problems: (1) Anxiety disorder (2) Dementia in Alzheimer's disease with delusions (3) Dementia in Alzheimer's disease with depression (4) Dementia, vascular, with delusions (5) Dementia, vascular, with depression (6) Impulse control disorder GILDARDO CRAWFORD MD Dec 17, 2018 22:56
[2018-12-18 05:52] VITALS: BP 125/69
[2018-12-18 07:55] LABS: BASO # 0.1 x10^3/uL (0.0-0.2); BASO % 1 % (0-3); EOS # 0.2 x10^3/uL (0.0-0.7); EOS % 3 % (0-3); HEMATOCRIT 42.9 % (39.0-53.0); HEMOGLOBIN 14.4 g/dL (13.0-17.5); LYMPH # 2.4 x10^3/uL (1.0-4.8); LYMPH % 35 % (24-48); MEAN CORPUSCULAR HEMOGLOBIN 33 pg (25-35); MEAN CORPUSCULAR HGB CONC 34 g/dL (31-37); MEAN CORPUSCULAR VOLUME 98 fL (79-100); MONO % 14 % (0-9); NEUT # 3.3 x10^3uL (1.8-7.7); NEUT % 47 % (31-73); PLATELET COUNT 138 x10^3/uL (140-400); RED BLOOD COUNT 4.39 x10^6/uL (4.30-5.70); RED CELL DISTRIBUTION WIDTH 13.1 % (11.5-14.5)
[2018-12-18] MEDS: DOCUSATE SODIUM 100 MG CAPSULE PO SCH (08:08)
[2018-12-18] MEDS: ASPIRIN 81 MG TAB.CHEW PO SCH (08:08)
[2018-12-18] MEDS: DIVALPROEX 125 MG CAP.SPRINK PO SCH ×2 (08:08→20:05)
[2018-12-18] MEDS: CARVEDILOL 3.125 MG TABLET PO SCH ×2 (08:08→16:57)
[2018-12-18] MEDS: RIVASTIGMINE 9.5MG PATCH. TD SCH (08:09)
[2018-12-18] MEDS: CYANOCOBALAMIN (VITAMIN B-12) 1,000 MCG TABLET. PO SCH (08:09)
[2018-12-18] MEDS: amLODIPine BESYLATE 10 MG TABLET PO SCH (08:09)
[2018-12-18 08:39] LABS: ALBUMIN 2.8 g/dL (3.4-5.0); ALBUMIN/GLOBULIN RATIO 0.8 (1.0-1.7); CALCIUM 8.8 mg/dL (8.5-10.1); CREATININE 1.4 mg/dL (0.7-1.3); GFR 48.8; TOTAL BILIRUBIN 0.3 mg/dL (0.2-1.0); TOTAL PROTEIN 6.4 g/dL (6.4-8.2)
[2018-12-18] MEDS: LORazepam 1 MG TABLET PO PRN (12:19)
[2018-12-18 16:23] VITALS: BP 147/78
[2018-12-18] MEDS: MIRTAZAPINE 30 MG TABLET PO SCH (20:05)
[2018-12-18] MEDS: risperiDONE 2 MG TABLET. PO SCH (20:05)
--- NOTE | 2018-12-18 22:37 | PDOC ---
Exam Note: Rex Note: Please also refer to the separate dictated note~for this date of service dictated separately.~Patient seen individually. Discussed the patient with Nursing staff reviewed the chart.~Reviewed interim history and current functioning. Reviewed vital signs,~Labs/ Radiology~and current medications noted below. Continue current treatment with the changes noted in the dictated addendum note Assessment: Vital Signs/I&O: Vital Signs Date Time Temp Pulse Resp B/P (MAP) Pulse Ox O2 Delivery O2 Flow Rate FiO2 12/18/18 16:57 61 147/78 12/18/18 16:23 97.6 20 97 12/18/18 05:52 Room Air I & O 12/17/18 12/17/18 12/18/18 14:59 22:59 06:59 Intake Total 360 ml 120 ml Balance 360 ml 120 ml Labs: Laboratory Tests Test 12/18/18 07:36 White Blood Count 7.0 x10^3/uL (4.0-11.0) Red Blood Count 4.39 x10^6/uL (4.30-5.70) Hemoglobin 14.4 g/dL (13.0-17.5) Hematocrit 42.9 % (39.0-53.0) Mean Corpuscular Volume 98 fL (79-100) Mean Corpuscular Hemoglobin 33 pg (25-35) Mean Corpuscular Hemoglobin Concent 34 g/dL (31-37) Red Cell Distribution Width 13.1 % (11.5-14.5) Platelet Count 138 x10^3/uL (140-400) L Neutrophils (%) (Auto) 47 % (31-73) Lymphocytes (%) (Auto) 35 % (24-48) Monocytes (%) (Auto) 14 % (0-9) H Eosinophils (%) (Auto) 3 % (0-3) Basophils (%) (Auto) 1 % (0-3) Neutrophils # (Auto) 3.3 x10^3uL (1.8-7.7) Lymphocytes # (Auto) 2.4 x10^3/uL (1.0-4.8) Monocytes # (Auto) 1.0 x10^3/uL (0.0-1.1) Eosinophils # (Auto) 0.2 x10^3/uL (0.0-0.7) Basophils # (Auto) 0.1 x10^3/uL (0.0-0.2) Sodium Level 140 mmol/L (136-145) Potassium Level 4.0 mmol/L (3.5-5.1) Chloride Level 103 mmol/L (98-107) Carbon Dioxide Level 30 mmol/L (21-32) Anion Gap 7 (6-14) Blood Urea Nitrogen 36 mg/dL (8-26) H Creatinine 1.4 mg/dL (0.7-1.3) H Estimated GFR (Cockcroft-Gault) 48.8 BUN/Creatinine Ratio 26 (6-20) H Glucose Level 85 mg/dL (70-99) Calcium Level 8.8 mg/dL (8.5-10.1) Total Bilirubin 0.3 mg/dL (0.2-1.0) Aspartate Amino Transferase (AST) 23 U/L (15-37) Alanine Aminotransferase (ALT) 34 U/L (16-63) Alkaline Phosphatase 48 U/L (46-116) Ammonia 42 mcmol/L (11-34) H Total Protein 6.4 g/dL (6.4-8.2) Albumin 2.8 g/dL (3.4-5.0) L Albumin/Globulin Ratio 0.8 (1.0-1.7) L Current Medications: I have reviewed the current psychotropics carefully including drug interactions. Risk benefit ratio favors no change other than as noted in my dictated progress note. Diagnosis: Problems: (1) Anxiety disorder (2) Dementia in Alzheimer's disease with delusions (3) Dementia in Alzheimer's disease with depression (4) Dementia, vascular, with delusions (5) Dementia, vascular, with depression (6) Impulse control disorder GILDARDO CRAWFORD MD Dec 18, 2018 22:37
--- NOTE | 2018-12-19 05:15 | PN ---
DATE: 12/17/2018 PSYCHIATRIC PROGRESS NOTE SUBJECTIVE: This note covers elements not covered in my initial note. The patient has been calmer, pleasant, refused p.m. medications, tries to get very close to another female, demented patient, believes she is his spouse. Slept 7-1/4 hours. REVIEW OF SYSTEMS: No CV, , pulmonary, eye system symptoms on review. MENTAL STATUS EXAM: Oriented to himself. Insight, judgment, memory is impaired. No suicidal or homicidal ideation per staff. LABORATORY DATA: Reviewed. IMPRESSION: Unchanged from initial note. PLAN: No change from initial note. MAN Jennifer CRAWFORD MD DR: INOCENCIO/karli JOB#: [id number] / [id number]
--- NOTE | 2018-12-19 05:17 | PN ---
DATE: 12/16/2018 PSYCHIATRIC PROGRESS NOTE This late entry 12/16/2018 covers elements not covered in my initial note. SUBJECTIVE: I met with the patient in the evening. The patient slept 7 hours previous night. In the morning, he was resistive with medications, calmer and less intrusive. Later in the day, had one episode of agitation, redirected. REVIEW OF SYSTEMS: No CV, , pulmonary, eye, ENT system symptoms on review. Reliability poor. MENTAL STATUS EXAM: Oriented to himself. Insight, judgment, recent and remote memory, attention, concentration, fund of knowledge poor, consistent with his diagnosis mentioned in my initial note. PLAN: No change from initial note. MAN Jennifer CRAWFORD MD DR: INOCENCIO/karli JOB#: [id number] / [id number]
[2018-12-19 05:50] VITALS: BP 138/75
[2018-12-19] MEDS: ASPIRIN 81 MG TAB.CHEW PO SCH (08:15)
[2018-12-19] MEDS: DIVALPROEX 125 MG CAP.SPRINK PO SCH ×2 (08:15→20:04)
[2018-12-19] MEDS: DOCUSATE SODIUM 100 MG CAPSULE PO SCH (08:15)
[2018-12-19] MEDS: CYANOCOBALAMIN (VITAMIN B-12) 1,000 MCG TABLET. PO SCH (08:16)
[2018-12-19] MEDS: amLODIPine BESYLATE 10 MG TABLET PO SCH (08:16)
[2018-12-19] MEDS: RIVASTIGMINE 9.5MG PATCH. TD SCH (08:16)
[2018-12-19] MEDS: CARVEDILOL 3.125 MG TABLET PO SCH ×2 (08:17→17:00)
[2018-12-19] MEDS: LORazepam 1 MG TABLET PO PRN (10:08)
[2018-12-19 15:52] VITALS: BP 158/65
[2018-12-19] MEDS: MIRTAZAPINE 30 MG TABLET PO SCH (20:04)
[2018-12-19] MEDS: risperiDONE 2 MG TABLET. PO SCH (20:04)
--- NOTE | 2018-12-19 22:34 | PDOC ---
Exam Note: Rex Note: Please also refer to the separate dictated note~for this date of service dictated separately.~Patient seen individually. Discussed the patient with Nursing staff reviewed the chart.~Reviewed interim history and current functioning. Reviewed vital signs,~Labs/ Radiology~and current medications noted below. Continue current treatment with the changes noted in the dictated addendum note Assessment: Vital Signs/I&O: Vital Signs Date Time Temp Pulse Resp B/P (MAP) Pulse Ox O2 Delivery O2 Flow Rate FiO2 12/19/18 17:00 64 158/65 12/19/18 15:52 98.6 16 97 12/18/18 05:52 Room Air I & O 12/18/18 12/18/18 12/19/18 14:59 22:59 06:59 Intake Total 960 ml 120 ml 120 ml Balance 960 ml 120 ml 120 ml Current Medications: I have reviewed the current psychotropics carefully including drug interactions. Risk benefit ratio favors no change other than as noted in my dictated progress note. Diagnosis: Problems: (1) Anxiety disorder (2) Dementia in Alzheimer's disease with delusions (3) Dementia in Alzheimer's disease with depression (4) Dementia, vascular, with delusions (5) Dementia, vascular, with depression (6) Impulse control disorder GILDARDO CRAWFORD MD Dec 19, 2018 22:34
--- NOTE | 2018-12-20 00:03 | PN ---
DATE: 12/18/2018 PSYCHIATRIC PROGRESS NOTE. This late entry of 12/18/2018 covers elements not covered in my initial note. SUBJECTIVE: I met with the patient on the evening of 12/18/2018. The patient slept 6-3/4 hours previous night. He has been somewhat anxious, restless, but less paranoid, less aggressive. REVIEW OF SYSTEMS: No CV, , pulmonary, eye, ENT system symptoms on review. Reliability poor. MENTAL STATUS EXAM: Oriented to himself. Insight, judgment, recent and remote memory, attention, concentration, fund of knowledge poor, consistent with his diagnosis mentioned in my initial note. PLAN: No change from initial note. MAN Jennifer CRAWFORD MD DR: INOCENCIO/karli JOB#: [id number] / [id number]
[2018-12-20 05:34] VITALS: BP 129/72
[2018-12-20 07:30] VITALS: BP 129/72
[2018-12-20] MEDS: DOCUSATE SODIUM 100 MG CAPSULE PO SCH (07:34)
[2018-12-20] MEDS: CYANOCOBALAMIN (VITAMIN B-12) 1,000 MCG TABLET. PO SCH (07:34)
[2018-12-20] MEDS: DIVALPROEX 125 MG CAP.SPRINK PO SCH ×2 (07:34→19:57)
[2018-12-20] MEDS: CARVEDILOL 3.125 MG TABLET PO SCH ×2 (07:35→17:08)
[2018-12-20] MEDS: ASPIRIN 81 MG TAB.CHEW PO SCH (07:35)
[2018-12-20] MEDS: amLODIPine BESYLATE 10 MG TABLET PO SCH (07:35)
[2018-12-20] MEDS: RIVASTIGMINE 9.5MG PATCH. TD SCH (07:36)
[2018-12-20 15:52] VITALS: BP 122/68
[2018-12-20] MEDS: MIRTAZAPINE 30 MG TABLET PO SCH (19:57)
[2018-12-20] MEDS: risperiDONE 2 MG TABLET. PO SCH (19:57)
--- NOTE | 2018-12-20 21:13 | PN ---
DATE: 12/19/2018 PSYCHIATRIC PROGRESS NOTE This is a late entry 12/19/2018, covers the elements not covered in my initial note. SUBJECTIVE: I met with the patient in the evening of 12/19/2018. The patient slept 7 hours previous night, had a good night and good day per nursing report behaviorally. He is less psychotic. REVIEW OF SYSTEMS: No CV, , pulmonary, eye, ENT system symptoms on review. Reliability is poor. MENTAL STATUS EXAM: Oriented to himself. Insight, judgment, recent and remote memory, attention, concentration, fund of knowledge poor, consistent with his diagnosis mentioned in my initial note. PLAN: No change from initial note. MAN Jennifer CRAWFORD MD DR: INOCENCIO/karli JOB#: [id number] / [id number]
--- NOTE | 2018-12-20 22:14 | PDOC ---
Exam Note: Rex Note: Please also refer to the separate dictated note~for this date of service dictated separately.~Patient seen individually. Discussed the patient with Nursing staff reviewed the chart.~Reviewed interim history and current functioning. Reviewed vital signs,~Labs/ Radiology~and current medications noted below. Continue current treatment with the changes noted in the dictated addendum note Assessment: Vital Signs/I&O: Vital Signs Date Time Temp Pulse Resp B/P (MAP) Pulse Ox O2 Delivery O2 Flow Rate FiO2 12/20/18 17:08 64 122/68 12/20/18 15:52 98.4 16 96 12/20/18 07:30 Room Air I & O 12/19/18 12/19/18 12/20/18 14:59 22:59 06:59 Intake Total 480 ml 360 ml Balance 480 ml 360 ml Current Medications: I have reviewed the current psychotropics carefully including drug interactions. Risk benefit ratio favors no change other than as noted in my dictated progress note. Diagnosis: Problems: (1) Anxiety disorder (2) Dementia in Alzheimer's disease with delusions (3) Dementia in Alzheimer's disease with depression (4) Dementia, vascular, with delusions (5) Dementia, vascular, with depression (6) Impulse control disorder GILDARDO CRAWFORD MD Dec 20, 2018 22:14
[2018-12-21 06:32] VITALS: BP 106/58
[2018-12-21] MEDS: ASPIRIN 81 MG TAB.CHEW PO SCH (08:20)
[2018-12-21] MEDS: DIVALPROEX 125 MG CAP.SPRINK PO SCH ×2 (08:20→19:20)
[2018-12-21] MEDS: DOCUSATE SODIUM 100 MG CAPSULE PO SCH (08:20)
[2018-12-21] MEDS: CARVEDILOL 3.125 MG TABLET PO SCH ×2 (08:20→17:20)
[2018-12-21] MEDS: amLODIPine BESYLATE 10 MG TABLET PO SCH (08:22)
[2018-12-21] MEDS: RIVASTIGMINE 9.5MG PATCH. TD SCH (08:22)
[2018-12-21] MEDS: CYANOCOBALAMIN (VITAMIN B-12) 1,000 MCG TABLET. PO SCH (08:22)
[2018-12-21 15:35] VITALS: BP 121/68
[2018-12-21] MEDS: risperiDONE 2 MG TABLET. PO SCH (19:20)
[2018-12-21] MEDS: MIRTAZAPINE 30 MG TABLET PO SCH (19:20)
--- NOTE | 2018-12-21 22:21 | PDOC ---
Exam Note: Rex Note: Please also refer to the separate dictated note~for this date of service dictated separately.~Patient seen individually. Discussed the patient with Nursing staff reviewed the chart.~Reviewed interim history and current functioning. Reviewed vital signs,~Labs/ Radiology~and current medications noted below. Continue current treatment with the changes noted in the dictated addendum note Assessment: Vital Signs/I&O: Vital Signs Date Time Temp Pulse Resp B/P (MAP) Pulse Ox O2 Delivery O2 Flow Rate FiO2 12/21/18 17:20 62 121/68 12/21/18 15:35 98.2 20 95 Room Air I & O 12/20/18 12/20/18 12/21/18 15:00 23:00 07:00 Intake Total 600 ml 240 ml 120 ml Balance 600 ml 240 ml 120 ml Current Medications: I have reviewed the current psychotropics carefully including drug interactions. Risk benefit ratio favors no change other than as noted in my dictated progress note. Diagnosis: Problems: (1) Anxiety disorder (2) Dementia in Alzheimer's disease with delusions (3) Dementia in Alzheimer's disease with depression (4) Dementia, vascular, with delusions (5) Dementia, vascular, with depression (6) Impulse control disorder GILDARDO CRAWFORD MD Dec 21, 2018 22:21
[2018-12-22 06:18] VITALS: BP 127/70
[2018-12-22] MEDS: DIVALPROEX 125 MG CAP.SPRINK PO SCH ×2 (07:25→19:56)
[2018-12-22] MEDS: DOCUSATE SODIUM 100 MG CAPSULE PO SCH (07:25)
[2018-12-22] MEDS: CYANOCOBALAMIN (VITAMIN B-12) 1,000 MCG TABLET. PO SCH (07:25)
[2018-12-22] MEDS: ASPIRIN 81 MG TAB.CHEW PO SCH (07:25)
[2018-12-22] MEDS: CARVEDILOL 3.125 MG TABLET PO SCH ×2 (07:26→17:24)
[2018-12-22] MEDS: amLODIPine BESYLATE 10 MG TABLET PO SCH (07:26)
[2018-12-22] MEDS: RIVASTIGMINE 9.5MG PATCH. TD SCH (07:27)
[2018-12-22 07:35] LABS: ALBUMIN/GLOBULIN RATIO 0.8 (1.0-1.7); ALK PHOS 53 U/L (46-116); ALT (SGPT) 37 U/L (16-63); ANION GAP 4 (6-14); AST (SGOT) 25 U/L (15-37); BASO % 1 % (0-3); BLOOD UREA NITROGEN 38 mg/dL (8-26); BUN/CREATININE RATIO 25 (6-20); CARBON DIOXIDE 31 mmol/L (21-32); CHLORIDE 106 mmol/L (98-107); CREATININE 1.5 mg/dL (0.7-1.3); EOS # 0.3 x10^3/uL (0.0-0.7); EOS % 4 % (0-3); GLUCOSE 80 mg/dL (70-99); HEMATOCRIT 44.1 % (39.0-53.0); HEMOGLOBIN 14.8 g/dL (13.0-17.5); LYMPH % 28 % (24-48); MEAN CORPUSCULAR HEMOGLOBIN 33 pg (25-35); MEAN CORPUSCULAR HGB CONC 34 g/dL (31-37); MEAN CORPUSCULAR VOLUME 99 fL (79-100); MONO # 0.9 x10^3/uL (0.0-1.1); MONO % 12 % (0-9); NEUT % 55 % (31-73); PLATELET COUNT 129 x10^3/uL (140-400); POTASSIUM 4.2 mmol/L (3.5-5.1); RED BLOOD COUNT 4.45 x10^6/uL (4.30-5.70); RED CELL DISTRIBUTION WIDTH 13.3 % (11.5-14.5); SODIUM 141 mmol/L (136-145); TOTAL BILIRUBIN 0.3 mg/dL (0.2-1.0); VAL ACID 76 mcg/mL (50-100); WHITE BLOOD COUNT 7.2 x10^3/uL (4.0-11.0)
--- NOTE | 2018-12-22 14:53 | PN ---
DATE: 12/20/2018 This is a late entry 12/20/2018 covers elements not covered in my initial note. SUBJECTIVE: I met with the patient evening of 12/20/2018. The patient slept 7-3/4 hours previous night. He has been calm, confused, takes meds, hidden, still believes one of the other female demented patient is his . Less obsessive about this, however. Did receive Zyprexa p.r.n. to help with his agitation. REVIEW OF SYSTEMS: No CV, , pulmonary, eye, ENT system symptoms on review. Reliability poor. MENTAL STATUS EXAM: Oriented to himself. Insight, judgment, recent and remote memory, attention, concentration, fund of knowledge poor, consistent with his diagnosis mentioned in my initial note. PLAN: No change from initial note. MAN Jennifer CRAWFORD MD DR: INOCENCIO/karli JOB#: [id number] / [id number]
[2018-12-22 16:13] VITALS: BP 158/76
[2018-12-22] MEDS: MIRTAZAPINE 30 MG TABLET PO SCH (19:55)
[2018-12-22] MEDS: risperiDONE 2 MG TABLET. PO SCH (19:55)
[2018-12-23 06:22] VITALS: BP 127/66
[2018-12-23] MEDS: DIVALPROEX 125 MG CAP.SPRINK PO SCH ×2 (07:56→20:03)
[2018-12-23] MEDS: ASPIRIN 81 MG TAB.CHEW PO SCH (07:57)
[2018-12-23] MEDS: amLODIPine BESYLATE 10 MG TABLET PO SCH (07:57)
[2018-12-23] MEDS: DOCUSATE SODIUM 100 MG CAPSULE PO SCH (07:57)
[2018-12-23] MEDS: CYANOCOBALAMIN (VITAMIN B-12) 1,000 MCG TABLET. PO SCH (07:57)
[2018-12-23] MEDS: RIVASTIGMINE 9.5MG PATCH. TD SCH (07:58)
[2018-12-23] MEDS: CARVEDILOL 3.125 MG TABLET PO SCH ×2 (07:58→17:36)
--- NOTE | 2018-12-23 10:16 | PDOC ---
Exam Note: Rex Note: Late entry for DOS 12/22/2018. Please also refer to the separate dictated note~for this date of service dictated separately.~Patient seen individually. Discussed the patient with Nursing staff reviewed the chart.~Reviewed interim history and current functioning. Reviewed vital signs,~Labs/ Radiology~and current medications noted below. Continue current treatment with the changes noted in the dictated addendum note Assessment: Vital Signs/I&O: Vital Signs Date Time Temp Pulse Resp B/P (MAP) Pulse Ox O2 Delivery O2 Flow Rate FiO2 12/23/18 07:58 58 127/66 12/23/18 06:22 98.5 16 95 Room Air I & O 12/22/18 12/22/18 12/23/18 14:59 22:59 06:59 Intake Total 720 ml 240 ml 120 ml Balance 720 ml 240 ml 120 ml Current Medications: I have reviewed the current psychotropics carefully including drug interactions. Risk benefit ratio favors no change other than as noted in my dictated progress note. Diagnosis: Problems: (1) Anxiety disorder (2) Dementia in Alzheimer's disease with delusions (3) Dementia in Alzheimer's disease with depression (4) Dementia, vascular, with delusions (5) Dementia, vascular, with depression (6) Impulse control disorder GILDARDO CRAWFORD MD Dec 23, 2018 10:16
[2018-12-23 15:58] VITALS: BP 131/75
[2018-12-23] MEDS: risperiDONE 2 MG TABLET. PO SCH (20:02)
[2018-12-23] MEDS: MIRTAZAPINE 30 MG TABLET PO SCH (20:02)
--- NOTE | 2018-12-23 22:23 | PDOC ---
Exam Note: Rex Note: Please also refer to the separate dictated note~for this date of service dictated separately.~Patient seen individually. Discussed the patient with Nursing staff reviewed the chart.~Reviewed interim history and current functioning. Reviewed vital signs,~Labs/ Radiology~and current medications noted below. Continue current treatment with the changes noted in the dictated addendum note Assessment: Vital Signs/I&O: Vital Signs Date Time Temp Pulse Resp B/P (MAP) Pulse Ox O2 Delivery O2 Flow Rate FiO2 12/23/18 17:36 60 131/75 12/23/18 15:58 98.1 18 97 12/23/18 06:22 Room Air I & O 12/22/18 12/22/18 12/23/18 14:59 22:59 06:59 Intake Total 720 ml 240 ml 120 ml Balance 720 ml 240 ml 120 ml Current Medications: I have reviewed the current psychotropics carefully including drug interactions. Risk benefit ratio favors no change other than as noted in my dictated progress note. Diagnosis: Problems: (1) Anxiety disorder (2) Dementia in Alzheimer's disease with delusions (3) Dementia in Alzheimer's disease with depression (4) Dementia, vascular, with delusions (5) Dementia, vascular, with depression (6) Impulse control disorder GILDARDO CRAWFORD MD Dec 23, 2018 22:23
[2018-12-24 05:57] VITALS: BP 181/92
--- NOTE | 2018-12-24 06:20 | PN ---
DATE: 12/21/2018 This late entry 12/21/2018 covers elements not covered in my initial note. SUBJECTIVE: I met with the patient evening of 12/21/2018. The patient slept 7-3/4 hours previous night. He had a pretty good day per nursing report. Took his medications crushed. Ammonia level is 42 on the 7th. We will check ammonia level, CBC, CMP, valproic acid level in the morning. REVIEW OF SYSTEMS: No CV, , pulmonary, eye, ENT system symptoms on review. Reliability poor. MENTAL STATUS EXAM: Oriented to himself. Insight, judgment, recent and remote memory, attention, concentration, fund of knowledge poor, consistent with his diagnosis mentioned in my initial note. PLAN: No change from initial note. Check labs. Adjust Depakote. May need to increase Risperdal if needed for psychosis. MAN Jennifer CRAWFORD MD DR: INOCENCIO/karli JOB#: [id number] / [id number]
--- NOTE | 2018-12-24 06:38 | PN ---
DATE: 12/22/2018 PSYCHIATRIC PROGRESS NOTE. This late entry of 12/22/2018 covers the elements not covered in my initial note. SUBJECTIVE: I met with the patient in the evening. The patient was staffed at a treatment team meeting with the entire team in the morning. The patient slept 7 hours, often noncompliant with medications, but calmer, cooperative. Nursing facility have expressed some concerns having him back unless he is totally compliant with his psychotropics. We may need to start him on Risperdal Consta if approved by [facility] and if the nursing facility would not take him back with the understanding that they might have to encourage him to take his oral psychotropics. Social Service nursing staff will check on all of this before initiating Risperdal Consta and I would prefer to continue his oral psychotropics including the oral Risperdal if possible. If he did initiate the Consta, we will reduce the Risperdal oral from 2 mg a day down to 1 mg a day. Risperdal Consta dosage would be 25 mg q. 2 weeks if everything else is approved. Platelet count is down to 129, BUN has increased from 32-38, creatinine is 1.5. Valproic acid level 76, therapeutic. Ammonia level unremarkable. REVIEW OF SYSTEMS: No CV, , eye, ENT or pulmonary system symptoms on review. MENTAL STATUS EXAM: Oriented to himself. Insight, judgment, recent and remote memory, attention, concentration, fund of knowledge poor, consistent with his diagnosis mentioned in my initial note. PLAN: No change from initial note other than noted above. GILDARDO CRAWFORD MD DR: INOCENCIO/karli JOB#: [id number] / [id number]
[2018-12-24] MEDS: DIVALPROEX 125 MG CAP.SPRINK PO SCH ×2 (10:45→20:11)
[2018-12-24] MEDS: amLODIPine BESYLATE 10 MG TABLET PO SCH (10:46)
[2018-12-24] MEDS: DOCUSATE SODIUM 100 MG CAPSULE PO SCH (10:46)
[2018-12-24] MEDS: CYANOCOBALAMIN (VITAMIN B-12) 1,000 MCG TABLET. PO SCH (10:46)
[2018-12-24] MEDS: CARVEDILOL 3.125 MG TABLET PO SCH ×2 (10:46→18:28)
[2018-12-24] MEDS: ASPIRIN 81 MG TAB.CHEW PO SCH (10:46)
[2018-12-24] MEDS: RIVASTIGMINE 9.5MG PATCH. TD SCH (10:46)
[2018-12-24 15:41] VITALS: BP 117/67
[2018-12-24] MEDS: MIRTAZAPINE 30 MG TABLET PO SCH (20:11)
[2018-12-24] MEDS: risperiDONE 2 MG TABLET. PO SCH (20:11)
--- NOTE | 2018-12-24 22:48 | PDOC ---
Exam Note: Rex Note: Please also refer to the separate dictated note~for this date of service dictated separately.~Patient seen individually. Discussed the patient with Nursing staff reviewed the chart.~Reviewed interim history and current functioning. Reviewed vital signs,~Labs/ Radiology~and current medications noted below. Continue current treatment with the changes noted in the dictated addendum note Assessment: Vital Signs/I&O: Vital Signs Date Time Temp Pulse Resp B/P (MAP) Pulse Ox O2 Delivery O2 Flow Rate FiO2 12/24/18 18:28 64 117/67 12/24/18 15:41 98.2 18 95 Room Air I & O 12/23/18 12/23/18 12/24/18 14:59 22:59 06:59 Intake Total 960 ml 360 ml Balance 960 ml 360 ml Current Medications: I have reviewed the current psychotropics carefully including drug interactions. Risk benefit ratio favors no change other than as noted in my dictated progress note. Diagnosis: Problems: (1) Anxiety disorder (2) Dementia in Alzheimer's disease with delusions (3) Dementia in Alzheimer's disease with depression (4) Dementia, vascular, with delusions (5) Dementia, vascular, with depression (6) Impulse control disorder GILDARDO CRAWFORD MD Dec 24, 2018 22:48
[2018-12-25 05:54] VITALS: BP 177/81
[2018-12-25] MEDS: DIVALPROEX 125 MG CAP.SPRINK PO SCH ×2 (10:02→19:47)
[2018-12-25] MEDS: ASPIRIN 81 MG TAB.CHEW PO SCH (10:03)
[2018-12-25] MEDS: CARVEDILOL 3.125 MG TABLET PO SCH ×2 (10:03→16:36)
[2018-12-25] MEDS: CYANOCOBALAMIN (VITAMIN B-12) 1,000 MCG TABLET. PO SCH (10:03)
[2018-12-25] MEDS: amLODIPine BESYLATE 10 MG TABLET PO SCH (10:03)
[2018-12-25] MEDS: DOCUSATE SODIUM 100 MG CAPSULE PO SCH (10:03)
[2018-12-25] MEDS: RIVASTIGMINE 9.5MG PATCH. TD SCH (10:04)
[2018-12-25 16:04] VITALS: BP 105/64
[2018-12-25] MEDS: risperiDONE 2 MG TABLET. PO SCH (19:46)
[2018-12-25] MEDS: MIRTAZAPINE 30 MG TABLET PO SCH (19:46)
--- NOTE | 2018-12-25 22:20 | PDOC ---
Exam Note: Rex Note: Please also refer to the separate dictated note~for this date of service dictated separately.~Patient seen individually. Discussed the patient with Nursing staff reviewed the chart.~Reviewed interim history and current functioning. Reviewed vital signs,~Labs/ Radiology~and current medications noted below. Continue current treatment with the changes noted in the dictated addendum note Assessment: Vital Signs/I&O: Vital Signs Date Time Temp Pulse Resp B/P (MAP) Pulse Ox O2 Delivery O2 Flow Rate FiO2 12/25/18 16:36 70 105/64 12/25/18 16:04 97.8 16 97 12/25/18 05:54 Room Air I & O 12/24/18 12/24/18 12/25/18 14:59 22:59 06:59 Intake Total 600 ml 240 ml 240 ml Balance 600 ml 240 ml 240 ml Current Medications: I have reviewed the current psychotropics carefully including drug interactions. Risk benefit ratio favors no change other than as noted in my dictated progress note. Diagnosis: Problems: (1) Anxiety disorder (2) Dementia in Alzheimer's disease with delusions (3) Dementia in Alzheimer's disease with depression (4) Dementia, vascular, with delusions (5) Dementia, vascular, with depression (6) Impulse control disorder GILDARDO CRAWFORD MD Dec 25, 2018 22:20
[2018-12-26 06:12] VITALS: BP 137/75
[2018-12-26] MEDS: RIVASTIGMINE 9.5MG PATCH. TD SCH (07:54)
[2018-12-26] MEDS: DIVALPROEX 125 MG CAP.SPRINK PO SCH ×2 (07:55→20:44)
[2018-12-26] MEDS: DOCUSATE SODIUM 100 MG CAPSULE PO SCH (07:55)
[2018-12-26] MEDS: ASPIRIN 81 MG TAB.CHEW PO SCH (07:56)
[2018-12-26] MEDS: amLODIPine BESYLATE 10 MG TABLET PO SCH (07:56)
[2018-12-26] MEDS: CYANOCOBALAMIN (VITAMIN B-12) 1,000 MCG TABLET. PO SCH (07:56)
[2018-12-26] MEDS: CARVEDILOL 3.125 MG TABLET PO SCH ×2 (08:01→17:09)
--- NOTE | 2018-12-26 09:17 | PN ---
DATE: 12/23/2018 PSYCHIATRIC PROGRESS NOTE This late entry 12/23/2018 covers elements not covered in my initial note. SUBJECTIVE: I met with the patient in the evening. The patient slept 6-1/2 hours previous night. He remains confused, but has done better, compliant with his medications per nursing report. REVIEW OF SYSTEMS: No CV, , pulmonary, eye, ENT system symptoms on review. Reliability poor. MENTAL STATUS EXAM: Oriented to himself. Insight, judgment, recent and remote memory, attention, concentration, fund of knowledge poor, consistent with his diagnosis mentioned in my initial note. PLAN: No change from initial note. MAN Jennifer CRAWFORD MD DR: INOCENCIO/karli JOB#: [id number] / [id number]
[2018-12-26 16:12] VITALS: BP 106/60
[2018-12-26] MEDS: MIRTAZAPINE 30 MG TABLET PO SCH (20:43)
[2018-12-26] MEDS: risperiDONE 2 MG TABLET. PO SCH (20:43)
--- NOTE | 2018-12-26 22:27 | PDOC ---
Exam Note: Rex Note: Please also refer to the separate dictated note~for this date of service dictated separately.~Patient seen individually. Discussed the patient with Nursing staff reviewed the chart.~Reviewed interim history and current functioning. Reviewed vital signs,~Labs/ Radiology~and current medications noted below. Continue current treatment with the changes noted in the dictated addendum note Assessment: Vital Signs/I&O: Vital Signs Date Time Temp Pulse Resp B/P (MAP) Pulse Ox O2 Delivery O2 Flow Rate FiO2 12/26/18 17:09 71 106/60 12/26/18 16:12 97.9 16 96 12/25/18 05:54 Room Air I & O 12/25/18 12/25/18 12/26/18 15:00 23:00 07:00 Intake Total 600 ml 480 ml Balance 600 ml 480 ml Current Medications: I have reviewed the current psychotropics carefully including drug interactions. Risk benefit ratio favors no change other than as noted in my dictated progress note. Diagnosis: Problems: (1) Anxiety disorder (2) Dementia in Alzheimer's disease with delusions (3) Dementia in Alzheimer's disease with depression (4) Dementia, vascular, with delusions (5) Dementia, vascular, with depression (6) Impulse control disorder GILDARDO CRAWFORD MD Dec 26, 2018 22:27
--- NOTE | 2018-12-27 01:36 | PN ---
DATE: 12/24/2018 This late entry, 12/24/2018, covers elements not covered in my initial note. SUBJECTIVE: I met with the patient on the evening of 12/24/2018. The patient slept 7 hours previous night. He remains confused, somewhat compulsive, looking for his . [facility] wonders about medication noncompliance and his question whether he can be on Risperdal Consta. We will check with his family after discussing pros and cons. REVIEW OF SYSTEMS: No CV, , pulmonary, eye, ENT system symptoms on review. Reliability poor. MENTAL STATUS EXAM: Oriented to himself. Insight, judgment, recent and remote memory, attention, concentration, fund of knowledge poor, consistent with his diagnosis mentioned in my initial note. PLAN: No change from initial note. MAN Jennifer CRAWFORD MD DR: INOCENCIO/karli JOB#: [id number] / [id number]
[2018-12-27] MEDS ORDERED: ACET325T9 PO (04:07)
[2018-12-27] MEDS ORDERED: DIVA125C2 PO ×2 (04:09→04:10)
[2018-12-27] MEDS ORDERED: LORA-254 PO (04:12)
[2018-12-27] MEDS ORDERED: MAGN2400 PO (04:13)
[2018-12-27] MEDS ORDERED: MAG30ORA2 PO (04:13)
[2018-12-27] MEDS ORDERED: METH29OI TP (04:14)
[2018-12-27] MEDS ORDERED: OLAN5TAB5 PO (04:15)
[2018-12-27] MEDS ORDERED: FLUV50TA2 PO (04:17)
[2018-12-27] MEDS ORDERED: RISP2TAB3 PO (04:18)
[2018-12-27 06:28] VITALS: BP 145/76
[2018-12-27] MEDS: ASPIRIN 81 MG TAB.CHEW PO SCH (08:15)
[2018-12-27] MEDS: DIVALPROEX 125 MG CAP.SPRINK PO SCH ×2 (08:15→19:27)
[2018-12-27] MEDS: amLODIPine BESYLATE 10 MG TABLET PO SCH (08:16)
[2018-12-27] MEDS: CARVEDILOL 3.125 MG TABLET PO SCH ×2 (08:16→17:38)
[2018-12-27] MEDS: CYANOCOBALAMIN (VITAMIN B-12) 1,000 MCG TABLET. PO SCH (08:16)
[2018-12-27] MEDS: RIVASTIGMINE 9.5MG PATCH. TD SCH (08:16)
[2018-12-27] MEDS: DOCUSATE SODIUM 100 MG CAPSULE PO SCH (08:16)
[2018-12-27] MEDS: LORazepam 1 MG TABLET PO PRN (13:58)
[2018-12-27 16:16] VITALS: BP 132/77
[2018-12-27] MEDS: risperiDONE 2 MG TABLET. PO SCH (19:28)
[2018-12-27] MEDS: MIRTAZAPINE 30 MG TABLET PO SCH (19:28)
--- NOTE | 2018-12-27 22:16 | PDOC ---
Exam Note: Rex Note: Please also refer to the separate dictated note~for this date of service dictated separately.~Patient seen individually. Discussed the patient with Nursing staff reviewed the chart.~Reviewed interim history and current functioning. Reviewed vital signs,~Labs/ Radiology~and current medications noted below. Continue current treatment with the changes noted in the dictated addendum note Assessment: Vital Signs/I&O: Vital Signs Date Time Temp Pulse Resp B/P (MAP) Pulse Ox O2 Delivery O2 Flow Rate FiO2 12/27/18 17:38 60 132/77 12/27/18 16:16 97.9 16 98 12/25/18 05:54 Room Air I & O 12/26/18 12/26/18 12/27/18 14:59 22:59 06:59 Intake Total 840 ml 240 ml 240 ml Balance 840 ml 240 ml 240 ml Current Medications: I have reviewed the current psychotropics carefully including drug interactions. Risk benefit ratio favors no change other than as noted in my dictated progress note. Diagnosis: Problems: (1) Anxiety disorder (2) Dementia in Alzheimer's disease with delusions (3) Dementia in Alzheimer's disease with depression (4) Dementia, vascular, with delusions (5) Dementia, vascular, with depression (6) Impulse control disorder GILDARDO CRAWFORD MD Dec 27, 2018 22:16
--- NOTE | 2018-12-28 05:57 | PN ---
DATE: 12/25/2018 PSYCHIATRIC PROGRESS NOTE This late entry of 12/25/2018 covers elements not covered in my initial note. SUBJECTIVE: I met with the patient in the evening of 12/25/2018. The patient slept 6-1/2 hours previous night. He remains confused, somewhat paranoid. REVIEW OF SYSTEMS: No CV, , pulmonary, eye, ENT system symptoms on review. Reliability poor. MENTAL STATUS EXAM: Oriented to himself. Insight, judgment, recent and remote memory, attention, concentration, fund of knowledge poor, consistent with his diagnosis mentioned in my initial note. PLAN: No change from initial note. MAN Jennifer CRAWFORD MD DR: INOCENCIO/karli JOB#: [id number] / [id number]
--- NOTE | 2018-12-28 06:02 | PN ---
DATE: 12/26/2018 PSYCHIATRIC PROGRESS NOTE This late entry of 12/26/2018 covers elements not covered in my initial note. SUBJECTIVE: I met with the patient in the evening of 12/26/2018. The patient slept 7 hours previous night. He remains pleasant, cooperative, but still paranoid, but less so than before, not aggressive. REVIEW OF SYSTEMS: No CV, , pulmonary, eye, ENT system symptoms on review. Reliability poor. MENTAL STATUS EXAM: Oriented to himself. Insight, judgment, recent and remote memory, attention, concentration, fund of knowledge poor, consistent with his diagnosis mentioned in my initial note. PLAN: No change from initial note. MAN Jennifer CRAWFORD MD DR: INOCENCIO/karli JOB#: [id number] / [id number]
[2018-12-28 06:38] VITALS: BP 155/74
[2018-12-28] MEDS: DIVALPROEX 125 MG CAP.SPRINK PO SCH ×2 (09:10→20:08)
[2018-12-28] MEDS: DOCUSATE SODIUM 100 MG CAPSULE PO SCH (09:10)
[2018-12-28] MEDS: RIVASTIGMINE 9.5MG PATCH. TD SCH (09:10)
[2018-12-28] MEDS: CYANOCOBALAMIN (VITAMIN B-12) 1,000 MCG TABLET. PO SCH (09:11)
[2018-12-28] MEDS: amLODIPine BESYLATE 10 MG TABLET PO SCH (09:11)
[2018-12-28] MEDS: ASPIRIN 81 MG TAB.CHEW PO SCH (09:11)
[2018-12-28] MEDS: CARVEDILOL 3.125 MG TABLET PO SCH ×2 (09:12→16:18)
[2018-12-28 15:51] VITALS: BP 125/80
[2018-12-28] MEDS: MIRTAZAPINE 30 MG TABLET PO SCH (20:08)
[2018-12-28] MEDS: risperiDONE 2 MG TABLET. PO SCH (20:08)
--- NOTE | 2018-12-28 22:19 | PDOC ---
Exam Note: Rex Note: Please also refer to the separate dictated note~for this date of service dictated separately.~Patient seen individually. Discussed the patient with Nursing staff reviewed the chart.~Reviewed interim history and current functioning. Reviewed vital signs,~Labs/ Radiology~and current medications noted below. Continue current treatment with the changes noted in the dictated addendum note Assessment: Vital Signs/I&O: Vital Signs Date Time Temp Pulse Resp B/P (MAP) Pulse Ox O2 Delivery O2 Flow Rate FiO2 12/28/18 16:18 65 125/80 12/28/18 15:51 98.5 16 97 12/25/18 05:54 Room Air I & O 12/27/18 12/27/18 12/28/18 14:59 22:59 06:59 Intake Total 600 ml 240 ml 240 ml Balance 600 ml 240 ml 240 ml Current Medications: I have reviewed the current psychotropics carefully including drug interactions. Risk benefit ratio favors no change other than as noted in my dictated progress note. Diagnosis: Problems: (1) Major neurocognitive disorder (2) Anxiety disorder (3) Dementia in Alzheimer's disease with delusions (4) Dementia in Alzheimer's disease with depression (5) Dementia, vascular, with delusions (6) Dementia, vascular, with depression (7) Impulse control disorder GILDARDO CRAWFORD MD Dec 28, 2018 22:19
--- NOTE | 2018-12-29 00:16 | PN ---
DATE: 12/27/2018 PSYCHIATRIC PROGRESS NOTE This is a late entry 12/27/2018 covers the elements not covered in my initial note. SUBJECTIVE: I met with the patient in the evening of 12/27/2018. The plan was for the patient to be discharged on 12/27/2018, but group home would not able to accept him. He slept 7 hours previous night. He has been calmer, remains confused, less paranoid. REVIEW OF SYSTEMS: No CV, , pulmonary, eye, ENT system symptoms on review. Reliability poor. MENTAL STATUS EXAM: Oriented to himself. Insight, judgment, recent and remote memory, attention, concentration, fund of knowledge poor, consistent with his diagnosis mentioned in my initial note. PLAN: No change from initial note. MAN Jennifer CRAWFORD MD DR: INOCENCIO/karli JOB#: [id number] / [id number]
[2018-12-29 06:15] VITALS: BP 110/68
[2018-12-29] MEDS: DOCUSATE SODIUM 100 MG CAPSULE PO SCH (09:36)
[2018-12-29] MEDS: amLODIPine BESYLATE 10 MG TABLET PO SCH (09:36)
[2018-12-29] MEDS: CARVEDILOL 3.125 MG TABLET PO SCH ×2 (09:37→18:22)
[2018-12-29] MEDS: CYANOCOBALAMIN (VITAMIN B-12) 1,000 MCG TABLET. PO SCH (09:37)
[2018-12-29] MEDS: DIVALPROEX 125 MG CAP.SPRINK PO SCH ×2 (09:37→19:27)
[2018-12-29] MEDS: ASPIRIN 81 MG TAB.CHEW PO SCH (09:37)
[2018-12-29] MEDS: RIVASTIGMINE 9.5MG PATCH. TD SCH (09:38)
[2018-12-29 16:22] VITALS: BP 135/74
[2018-12-29] MEDS: risperiDONE 2 MG TABLET. PO SCH (19:27)
[2018-12-29] MEDS: MIRTAZAPINE 30 MG TABLET PO SCH (19:27)
--- NOTE | 2018-12-29 22:27 | PDOC ---
Exam Note: Rex Note: Please also refer to the separate dictated note~for this date of service dictated separately.~Patient seen individually. Discussed the patient with Nursing staff reviewed the chart.~Reviewed interim history and current functioning. Reviewed vital signs,~Labs/ Radiology~and current medications noted below. Continue current treatment with the changes noted in the dictated addendum note Assessment: Vital Signs/I&O: Vital Signs Date Time Temp Pulse Resp B/P (MAP) Pulse Ox O2 Delivery O2 Flow Rate FiO2 12/29/18 18:22 68 135/74 12/29/18 16:22 97.7 20 96 Room Air I & O 12/28/18 12/28/18 12/29/18 15:00 23:00 07:00 Intake Total 720 ml 360 ml Balance 720 ml 360 ml Current Medications: I have reviewed the current psychotropics carefully including drug interactions. Risk benefit ratio favors no change other than as noted in my dictated progress note. Diagnosis: Problems: (1) Major neurocognitive disorder (2) Anxiety disorder (3) Dementia in Alzheimer's disease with delusions (4) Dementia in Alzheimer's disease with depression (5) Dementia, vascular, with delusions (6) Dementia, vascular, with depression (7) Impulse control disorder GILDARDO CRAWFORD MD Dec 29, 2018 22:27
[2018-12-30 06:25] VITALS: BP 140/84
[2018-12-30] MEDS: CARVEDILOL 3.125 MG TABLET PO SCH ×2 (08:00→16:21)
[2018-12-30] MEDS: ASPIRIN 81 MG TAB.CHEW PO SCH (08:13)
[2018-12-30] MEDS: DOCUSATE SODIUM 100 MG CAPSULE PO SCH (08:13)
[2018-12-30] MEDS: DIVALPROEX 125 MG CAP.SPRINK PO SCH ×2 (08:13→19:24)
[2018-12-30] MEDS: CYANOCOBALAMIN (VITAMIN B-12) 1,000 MCG TABLET. PO SCH (08:14)
[2018-12-30] MEDS: amLODIPine BESYLATE 10 MG TABLET PO SCH (08:14)
[2018-12-30] MEDS: RIVASTIGMINE 9.5MG PATCH. TD SCH (08:15)
[2018-12-30 09:35] LABS: BASO % 1 % (0-3); EOS # 0.3 x10^3/uL (0.0-0.7); EOS % 4 % (0-3); HEMATOCRIT 41.7 % (39.0-53.0); LYMPH # 1.5 x10^3/uL (1.0-4.8); LYMPH % 18 % (24-48); MEAN CORPUSCULAR HEMOGLOBIN 33 pg (25-35); MEAN CORPUSCULAR HGB CONC 34 g/dL (31-37); MEAN CORPUSCULAR VOLUME 99 fL (79-100); MONO # 0.8 x10^3/uL (0.0-1.1); MONO % 10 % (0-9); NEUT # 5.7 x10^3uL (1.8-7.7); NEUT % 68 % (31-73); PLATELET COUNT 149 x10^3/uL (140-400); RED BLOOD COUNT 4.21 x10^6/uL (4.30-5.70); RED CELL DISTRIBUTION WIDTH 13.8 % (11.5-14.5); WHITE BLOOD COUNT 8.4 x10^3/uL (4.0-11.0)
[2018-12-30 10:04] LABS: ALBUMIN 2.9 g/dL (3.4-5.0); ALBUMIN/GLOBULIN RATIO 0.7 (1.0-1.7); CALCIUM 8.6 mg/dL (8.5-10.1); TOTAL PROTEIN 6.8 g/dL (6.4-8.2)
[2018-12-30 10:05] LABS: CREATININE 1.3 mg/dL (0.7-1.3); GFR 53.1; POTASSIUM 4.1 mmol/L (3.5-5.1); TOTAL BILIRUBIN 0.3 mg/dL (0.2-1.0)
[2018-12-30 16:27] VITALS: BP 119/69
[2018-12-30] MEDS: risperiDONE 2 MG TABLET. PO SCH (19:24)
[2018-12-30] MEDS: MIRTAZAPINE 30 MG TABLET PO SCH (19:24)
--- NOTE | 2018-12-30 22:24 | PDOC ---
Exam Note: Rex Note: Please also refer to the separate dictated note~for this date of service dictated separately.~Patient seen individually. Discussed the patient with Nursing staff reviewed the chart.~Reviewed interim history and current functioning. Reviewed vital signs,~Labs/ Radiology~and current medications noted below. Continue current treatment with the changes noted in the dictated addendum note Assessment: Vital Signs/I&O: Vital Signs Date Time Temp Pulse Resp B/P (MAP) Pulse Ox O2 Delivery O2 Flow Rate FiO2 12/30/18 16:27 97.4 61 18 119/69 (86) 98 12/30/18 06:25 Room Air I & O 12/29/18 12/29/18 12/30/18 14:59 22:59 06:59 Intake Total 240 ml 240 ml 120 ml Balance 240 ml 240 ml 120 ml Labs: Laboratory Tests Test 12/30/18 09:20 White Blood Count 8.4 x10^3/uL (4.0-11.0) Red Blood Count 4.21 x10^6/uL (4.30-5.70) L Hemoglobin 14.0 g/dL (13.0-17.5) Hematocrit 41.7 % (39.0-53.0) Mean Corpuscular Volume 99 fL (79-100) Mean Corpuscular Hemoglobin 33 pg (25-35) Mean Corpuscular Hemoglobin Concent 34 g/dL (31-37) Red Cell Distribution Width 13.8 % (11.5-14.5) Platelet Count 149 x10^3/uL (140-400) Neutrophils (%) (Auto) 68 % (31-73) Lymphocytes (%) (Auto) 18 % (24-48) L Monocytes (%) (Auto) 10 % (0-9) H Eosinophils (%) (Auto) 4 % (0-3) H Basophils (%) (Auto) 1 % (0-3) Neutrophils # (Auto) 5.7 x10^3uL (1.8-7.7) Lymphocytes # (Auto) 1.5 x10^3/uL (1.0-4.8) Monocytes # (Auto) 0.8 x10^3/uL (0.0-1.1) Eosinophils # (Auto) 0.3 x10^3/uL (0.0-0.7) Basophils # (Auto) 0.0 x10^3/uL (0.0-0.2) Sodium Level 141 mmol/L (136-145) Potassium Level 4.1 mmol/L (3.5-5.1) Chloride Level 104 mmol/L (98-107) Carbon Dioxide Level 31 mmol/L (21-32) Anion Gap 6 (6-14) Blood Urea Nitrogen 29 mg/dL (8-26) H Creatinine 1.3 mg/dL (0.7-1.3) Estimated GFR (Cockcroft-Gault) 53.1 BUN/Creatinine Ratio 22 (6-20) H Glucose Level 103 mg/dL (70-99) H Calcium Level 8.6 mg/dL (8.5-10.1) Total Bilirubin 0.3 mg/dL (0.2-1.0) Aspartate Amino Transferase (AST) 24 U/L (15-37) Alanine Aminotransferase (ALT) 36 U/L (16-63) Alkaline Phosphatase 52 U/L (46-116) Total Protein 6.8 g/dL (6.4-8.2) Albumin 2.9 g/dL (3.4-5.0) L Albumin/Globulin Ratio 0.7 (1.0-1.7) L Current Medications: I have reviewed the current psychotropics carefully including drug interactions. Risk benefit ratio favors no change other than as noted in my dictated progress note. Diagnosis: Problems: (1) Anxiety disorder (2) Dementia in Alzheimer's disease with delusions (3) Dementia in Alzheimer's disease with depression (4) Dementia, vascular, with delusions (5) Dementia, vascular, with depression (6) Impulse control disorder (7) Major neurocognitive disorder GILDARDO CRAWFODR MD Dec 30, 2018 22:24
--- NOTE | 2018-12-31 03:44 | PN ---
DATE: 12/28/2018 PSYCHIATRIC PROGRESS NOTE This late entry 12/28/2018, covers elements not covered in my initial note. SUBJECTIVE: I met with the patient in the evening of 12/28/2018. The patient slept 7 hours previous night. He remains confused, withdrawn, somewhat paranoid, but not aggressive. REVIEW OF SYSTEMS: No CV, , pulmonary, eye, ENT system symptoms on review. MENTAL STATUS EXAM: Oriented to himself. Insight, judgment, recent and remote memory, attention, concentration, fund of knowledge poor, consistent with his diagnosis mentioned in my initial note. PLAN: No change from initial note. MAN Jennifer CRAWFORD MD DR: INOCENCIO/karli JOB#: [id number] / [id number]
[2018-12-31 06:18] VITALS: BP 153/74
[2018-12-31] MEDS: ASPIRIN 81 MG TAB.CHEW PO SCH (08:15)
[2018-12-31] MEDS: DOCUSATE SODIUM 100 MG CAPSULE PO SCH (08:15)
[2018-12-31] MEDS: DIVALPROEX 125 MG CAP.SPRINK PO SCH ×2 (08:15→20:08)
[2018-12-31] MEDS: CARVEDILOL 3.125 MG TABLET PO SCH ×2 (08:15→15:49)
[2018-12-31] MEDS: CYANOCOBALAMIN (VITAMIN B-12) 1,000 MCG TABLET. PO SCH (08:17)
[2018-12-31] MEDS: RIVASTIGMINE 9.5MG PATCH. TD SCH (08:17)
[2018-12-31] MEDS: amLODIPine BESYLATE 10 MG TABLET PO SCH (08:17)
[2018-12-31 15:58] VITALS: BP 107/64
--- NOTE | 2018-12-31 18:30 | PN ---
DATE: PSYCHIATRIC PROGRESS NOTE This late entry 12/29/2018 covers elements not covered in my initial note. SUBJECTIVE: I met with the patient evening of 12/29/2018, staffed at a treatment team meeting with the entire team. The patient slept 5 hours previous night, appetite 100%. Overall remains confused, somewhat dismissive as I met with him, but with rest of the staff and patients he is appropriate. REVIEW OF SYSTEMS: No CV, , pulmonary, eye, ENT system symptoms on review. Reliability poor. MENTAL STATUS EXAM: Oriented to himself. Insight, judgment, recent and remote memory, attention, concentration, fund of knowledge poor, consistent with his diagnosis mentioned in my initial note. PLAN: No change from initial note. MAN Jennifer CRAWFORD MD DR: INOCENCIO/karli JOB#: [id number] / [id number]
[2018-12-31] MEDS: risperiDONE 2 MG TABLET. PO SCH (20:07)
[2018-12-31] MEDS: MIRTAZAPINE 30 MG TABLET PO SCH (20:07)
--- NOTE | 2018-12-31 23:07 | PDOC ---
Exam Note: Rex Note: Please also refer to the separate dictated note~for this date of service dictated separately.~Patient seen individually. Discussed the patient with Nursing staff reviewed the chart.~Reviewed interim history and current functioning. Reviewed vital signs,~Labs/ Radiology~and current medications noted below. Continue current treatment with the changes noted in the dictated addendum note Assessment: Vital Signs/I&O: Vital Signs Date Time Temp Pulse Resp B/P (MAP) Pulse Ox O2 Delivery O2 Flow Rate FiO2 12/31/18 15:58 97.4 59 20 107/64 (78) 96 12/30/18 06:25 Room Air I & O 12/30/18 12/30/18 12/31/18 15:00 23:00 07:00 Intake Total 960 ml 360 ml Balance 960 ml 360 ml Current Medications: I have reviewed the current psychotropics carefully including drug interactions. Risk benefit ratio favors no change other than as noted in my dictated progress note. Diagnosis: Problems: (1) Anxiety disorder (2) Dementia in Alzheimer's disease with delusions (3) Dementia in Alzheimer's disease with depression (4) Dementia, vascular, with delusions (5) Dementia, vascular, with depression (6) Impulse control disorder (7) Major neurocognitive disorder GILDARDO CRAWFORD MD Dec 31, 2018 23:07
[2019-01-01 06:19] VITALS: BP 168/81
[2019-01-01] MEDS: CARVEDILOL 3.125 MG TABLET PO SCH ×2 (07:29→16:48)
[2019-01-01] MEDS: DOCUSATE SODIUM 100 MG CAPSULE PO SCH (07:29)
[2019-01-01] MEDS: amLODIPine BESYLATE 10 MG TABLET PO SCH (07:30)
[2019-01-01] MEDS: DIVALPROEX 125 MG CAP.SPRINK PO SCH ×2 (07:30→19:57)
[2019-01-01] MEDS: ASPIRIN 81 MG TAB.CHEW PO SCH (07:30)
[2019-01-01] MEDS: RIVASTIGMINE 9.5MG PATCH. TD SCH (07:31)
[2019-01-01] MEDS: CYANOCOBALAMIN (VITAMIN B-12) 1,000 MCG TABLET. PO SCH (07:31)
[2019-01-01 16:21] VITALS: BP 131/74
[2019-01-01] MEDS: MIRTAZAPINE 30 MG TABLET PO SCH (19:57)
[2019-01-01] MEDS: risperiDONE 2 MG TABLET. PO SCH (19:58)
--- NOTE | 2019-01-01 22:14 | PDOC ---
Exam Note: Rex Note: Please also refer to the separate dictated note~for this date of service dictated separately.~Patient seen individually. Discussed the patient with Nursing staff reviewed the chart.~Reviewed interim history and current functioning. Reviewed vital signs,~Labs/ Radiology~and current medications noted below. Continue current treatment with the changes noted in the dictated addendum note Assessment: Vital Signs/I&O: Vital Signs Date Time Temp Pulse Resp B/P (MAP) Pulse Ox O2 Delivery O2 Flow Rate FiO2 01/01/19 16:48 63 131/74 01/01/19 16:21 97.8 20 96 Room Air I & O 12/31/18 12/31/18 01/01/19 15:00 23:00 07:00 Intake Total 720 ml 360 ml 120 ml Balance 720 ml 360 ml 120 ml Current Medications: I have reviewed the current psychotropics carefully including drug interactions. Risk benefit ratio favors no change other than as noted in my dictated progress note. Diagnosis: Problems: (1) Anxiety disorder (2) Dementia in Alzheimer's disease with delusions (3) Dementia in Alzheimer's disease with depression (4) Dementia, vascular, with delusions (5) Dementia, vascular, with depression (6) Impulse control disorder (7) Major neurocognitive disorder GILDARDO CRAWFORD MD Jan 01, 2019 22:14
[2019-01-02 05:55] VITALS: BP 129/77
[2019-01-02] MEDS: amLODIPine BESYLATE 10 MG TABLET PO SCH (08:03)
[2019-01-02] MEDS: ASPIRIN 81 MG TAB.CHEW PO SCH (08:03)
[2019-01-02] MEDS: DIVALPROEX 125 MG CAP.SPRINK PO SCH ×2 (08:03→19:43)
[2019-01-02] MEDS: RIVASTIGMINE 9.5MG PATCH. TD SCH (08:04)
[2019-01-02] MEDS: CYANOCOBALAMIN (VITAMIN B-12) 1,000 MCG TABLET. PO SCH (08:04)
[2019-01-02] MEDS: DOCUSATE SODIUM 100 MG CAPSULE PO SCH (08:04)
[2019-01-02] MEDS: CARVEDILOL 3.125 MG TABLET PO SCH ×2 (08:04→16:04)
--- NOTE | 2019-01-02 10:02 | PN ---
DATE: 12/30/2018 PSYCHIATRIC PROGRESS NOTE This late entry 12/30/2018, covers elements not covered in my initial note. SUBJECTIVE: I met with the patient in the evening of 12/30/2018. The patient slept 5-1/2 hours previous night. He remains confused, tried to refuse his bedtime medications, but took them on 12/30. He made a remark about another demented patient who was acting out on the unit "Man, she is off." Per nursing report, this was quite appropriate. REVIEW OF SYSTEMS: No CV, , PULMONARY, EYE, ENT system symptoms on review. Reliability poor. MENTAL STATUS EXAM: Oriented to himself. Insight, judgment, recent and remote memory, attention, concentration, fund of knowledge poor, consistent with his diagnosis mentioned in my initial note. PLAN: No change from initial note. MAN JagdeepPinky CRAWFORD MD DR: INOCENCIO/karli JOB#: [id number] / [id number]
[2019-01-02 15:46] VITALS: BP 112/68
[2019-01-02] MEDS: risperiDONE 2 MG TABLET. PO SCH (19:43)
[2019-01-02] MEDS: MIRTAZAPINE 30 MG TABLET PO SCH (19:44)
--- NOTE | 2019-01-02 21:11 | PDOC ---
Exam Note: Rex Note: Please also refer to the separate dictated note~for this date of service dictated separately.~Patient seen individually. Discussed the patient with Nursing staff reviewed the chart.~Reviewed interim history and current functioning. Reviewed vital signs,~Labs/ Radiology~and current medications noted below. Continue current treatment with the changes noted in the dictated addendum note Assessment: Vital Signs/I&O: Vital Signs Date Time Temp Pulse Resp B/P (MAP) Pulse Ox O2 Delivery O2 Flow Rate FiO2 01/02/19 16:04 69 112/68 01/02/19 15:46 98.3 20 96 01/01/19 16:21 Room Air I & O 01/01/19 01/01/19 01/02/19 15:00 23:00 07:00 Intake Total 240 ml 240 ml Balance 240 ml 240 ml Current Medications: I have reviewed the current psychotropics carefully including drug interactions. Risk benefit ratio favors no change other than as noted in my dictated progress note. Diagnosis: Problems: (1) Anxiety disorder (2) Dementia in Alzheimer's disease with delusions (3) Dementia in Alzheimer's disease with depression (4) Dementia, vascular, with delusions (5) Dementia, vascular, with depression (6) Impulse control disorder (7) Major neurocognitive disorder GILDARDO CRAWFORD MD Jan 02, 2019 21:11
--- NOTE | 2019-01-02 23:54 | PN ---
DATE: 12/31/2018 This late entry, 12/31/2018, covers elements not covered in my initial note. SUBJECTIVE: I met with the patient on the evening of 12/31/2018. The patient slept 7-1/4 hours previous night. He has been appropriate during the day and previous night. REVIEW OF SYSTEMS: No CV, , pulmonary, eye, ENT system symptoms on review. Reliability poor. MENTAL STATUS EXAM: Oriented to himself. Insight, judgment, recent memory is impaired. Confused, but not aggressive. LABORATORY DATA: Reviewed. IMPRESSION: Unchanged from initial note. PLAN: No change from initial note. MAN Jennifer CRAWFORD MD DR: INOCENCIO/karli JOB#: [id number] / [id number]
--- NOTE | 2019-01-03 00:30 | PN ---
DATE: 01/01/2019 PSYCHIATRIC PROGRESS NOTE This late entry, 01/01/2019, covers elements not covered in my initial note. SUBJECTIVE: I met with the patient in the evening of 01/01/2019. The patient slept 6-1/2 hours previous night. He has not been obsessed about his or looking for her. He remains confused, not aggressive. REVIEW OF SYSTEMS: No CV, , pulmonary, eye, ENT system symptoms on review. Reliability poor. MENTAL STATUS EXAM: Oriented to himself. Insight, judgment, recent and remote memory, attention, concentration, fund of knowledge poor, consistent with his diagnosis mentioned in my initial note. PLAN: No change from initial note. MAN Jennifer CRAWFORD MD DR: INOCENCIO/karli JOB#: [id number] / [id number]
[2019-01-03 05:39] VITALS: BP 121/56
[2019-01-03] MEDS: amLODIPine BESYLATE 10 MG TABLET PO SCH (09:24)
[2019-01-03] MEDS: DOCUSATE SODIUM 100 MG CAPSULE PO SCH (09:24)
[2019-01-03] MEDS: CYANOCOBALAMIN (VITAMIN B-12) 1,000 MCG TABLET. PO SCH (09:25)
[2019-01-03] MEDS: ASPIRIN 81 MG TAB.CHEW PO SCH (09:25)
[2019-01-03] MEDS: CARVEDILOL 3.125 MG TABLET PO SCH ×2 (09:25→17:04)
[2019-01-03] MEDS: DIVALPROEX 125 MG CAP.SPRINK PO SCH ×2 (09:25→19:59)
[2019-01-03] MEDS: RIVASTIGMINE 9.5MG PATCH. TD SCH (09:26)
[2019-01-03 16:21] VITALS: BP 124/70
[2019-01-03] MEDS: MIRTAZAPINE 30 MG TABLET PO SCH (19:59)
[2019-01-03] MEDS: risperiDONE 2 MG TABLET. PO SCH (19:59)
--- NOTE | 2019-01-03 22:25 | PDOC ---
Exam Note: Rex Note: Please also refer to the separate dictated note~for this date of service dictated separately.~Patient seen individually. Discussed the patient with Nursing staff reviewed the chart.~Reviewed interim history and current functioning. Reviewed vital signs,~Labs/ Radiology~and current medications noted below. Continue current treatment with the changes noted in the dictated addendum note Assessment: Vital Signs/I&O: Vital Signs Date Time Temp Pulse Resp B/P (MAP) Pulse Ox O2 Delivery O2 Flow Rate FiO2 01/03/19 17:04 64 124/70 01/03/19 16:21 97.7 16 98 01/01/19 16:21 Room Air I & O 01/02/19 01/02/19 01/03/19 14:59 22:59 06:59 Intake Total 360 ml 240 ml 120 ml Balance 360 ml 240 ml 120 ml Current Medications: I have reviewed the current psychotropics carefully including drug interactions. Risk benefit ratio favors no change other than as noted in my dictated progress note. Diagnosis: Problems: (1) Anxiety disorder (2) Dementia in Alzheimer's disease with delusions (3) Dementia in Alzheimer's disease with depression (4) Dementia, vascular, with delusions (5) Dementia, vascular, with depression (6) Impulse control disorder (7) Major neurocognitive disorder GILDARDO CRAWFORD MD Jan 03, 2019 22:25
--- NOTE | 2019-01-04 04:25 | PN ---
DATE: 01/02/2019 PSYCHIATRIC PROGRESS NOTE This late entry, 01/02/2019, covers elements not covered in my initial note. SUBJECTIVE: I met with the patient on the evening of 01/02/2019. The patient slept 6-3/4 hours previous night. He slept in in the morning as well. He has not been aggressive. He remains confused. REVIEW OF SYSTEMS: No CV, , pulmonary, eye, ENT system symptoms on review. Reliability poor. MENTAL STATUS EXAM: Oriented to himself. Insight, judgment, recent and remote memory, attention, concentration, fund of knowledge poor, consistent with his diagnosis mentioned in my initial note. PLAN: No change from initial note. MAN Jennifer CRAWFORD MD DR: INOCENCIO/karli JOB#: [id number] / [id number]
[2019-01-04 06:12] VITALS: BP 120/68
[2019-01-04 07:46] LABS: BASO # 0.1 x10^3/uL (0.0-0.2); BASO % 1 % (0-3); EOS # 0.4 x10^3/uL (0.0-0.7); EOS % 5 % (0-3); HEMATOCRIT 38.9 % (39.0-53.0); HEMOGLOBIN 13.1 g/dL (13.0-17.5); LYMPH # 2.1 x10^3/uL (1.0-4.8); LYMPH % 24 % (24-48); MEAN CORPUSCULAR HEMOGLOBIN 33 pg (25-35); MEAN CORPUSCULAR HGB CONC 34 g/dL (31-37); MEAN CORPUSCULAR VOLUME 99 fL (79-100); MONO # 1.1 x10^3/uL (0.0-1.1); MONO % 12 % (0-9); NEUT # 5.1 x10^3uL (1.8-7.7); NEUT % 58 % (31-73); PLATELET COUNT 153 x10^3/uL (140-400); RED BLOOD COUNT 3.91 x10^6/uL (4.30-5.70); RED CELL DISTRIBUTION WIDTH 13.8 % (11.5-14.5); WHITE BLOOD COUNT 8.7 x10^3/uL (4.0-11.0)
[2019-01-04 08:05] LABS: ALBUMIN 2.8 g/dL (3.4-5.0); ALBUMIN/GLOBULIN RATIO 0.7 (1.0-1.7); CALCIUM 8.9 mg/dL (8.5-10.1); CREATININE 1.5 mg/dL (0.7-1.3); TOTAL BILIRUBIN 0.3 mg/dL (0.2-1.0); TOTAL PROTEIN 6.7 g/dL (6.4-8.2)
[2019-01-04] MEDS: RIVASTIGMINE 9.5MG PATCH. TD SCH (08:17)
[2019-01-04] MEDS: DOCUSATE SODIUM 100 MG CAPSULE PO SCH (08:18)
[2019-01-04] MEDS: CYANOCOBALAMIN (VITAMIN B-12) 1,000 MCG TABLET. PO SCH (08:19)
[2019-01-04] MEDS: amLODIPine BESYLATE 10 MG TABLET PO SCH (08:19)
[2019-01-04] MEDS: DIVALPROEX 125 MG CAP.SPRINK PO SCH ×2 (08:20→20:11)
[2019-01-04] MEDS: ASPIRIN 81 MG TAB.CHEW PO SCH (08:20)
[2019-01-04] MEDS: CARVEDILOL 3.125 MG TABLET PO SCH ×2 (08:20→17:34)
[2019-01-04 17:08] VITALS: BP 106/60
[2019-01-04] MEDS: MIRTAZAPINE 30 MG TABLET PO SCH (20:11)
[2019-01-04] MEDS: risperiDONE 2 MG TABLET. PO SCH (20:12)
--- NOTE | 2019-01-04 22:32 | PDOC ---
Exam Note: Rex Note: Please also refer to the separate dictated note~for this date of service dictated separately.~Patient seen individually. Discussed the patient with Nursing staff reviewed the chart.~Reviewed interim history and current functioning. Reviewed vital signs,~Labs/ Radiology~and current medications noted below. Continue current treatment with the changes noted in the dictated addendum note Assessment: Vital Signs/I&O: Vital Signs Date Time Temp Pulse Resp B/P (MAP) Pulse Ox O2 Delivery O2 Flow Rate FiO2 01/04/19 17:34 57 106/60 01/04/19 17:08 97.1 16 97 Room Air I & O 01/03/19 01/03/19 01/04/19 14:59 22:59 06:59 Intake Total 840 ml 360 ml 240 ml Balance 840 ml 360 ml 240 ml Labs: Laboratory Tests Test 01/04/19 07:22 White Blood Count 8.7 x10^3/uL (4.0-11.0) Red Blood Count 3.91 x10^6/uL (4.30-5.70) L Hemoglobin 13.1 g/dL (13.0-17.5) Hematocrit 38.9 % (39.0-53.0) L Mean Corpuscular Volume 99 fL (79-100) Mean Corpuscular Hemoglobin 33 pg (25-35) Mean Corpuscular Hemoglobin Concent 34 g/dL (31-37) Red Cell Distribution Width 13.8 % (11.5-14.5) Platelet Count 153 x10^3/uL (140-400) Neutrophils (%) (Auto) 58 % (31-73) Lymphocytes (%) (Auto) 24 % (24-48) Monocytes (%) (Auto) 12 % (0-9) H Eosinophils (%) (Auto) 5 % (0-3) H Basophils (%) (Auto) 1 % (0-3) Neutrophils # (Auto) 5.1 x10^3uL (1.8-7.7) Lymphocytes # (Auto) 2.1 x10^3/uL (1.0-4.8) Monocytes # (Auto) 1.1 x10^3/uL (0.0-1.1) Eosinophils # (Auto) 0.4 x10^3/uL (0.0-0.7) Basophils # (Auto) 0.1 x10^3/uL (0.0-0.2) Sodium Level 142 mmol/L (136-145) Potassium Level 4.0 mmol/L (3.5-5.1) Chloride Level 106 mmol/L (98-107) Carbon Dioxide Level 30 mmol/L (21-32) Anion Gap 6 (6-14) Blood Urea Nitrogen 33 mg/dL (8-26) H Creatinine 1.5 mg/dL (0.7-1.3) H Estimated GFR (Cockcroft-Gault) 45.0 BUN/Creatinine Ratio 22 (6-20) H Glucose Level 80 mg/dL (70-99) Calcium Level 8.9 mg/dL (8.5-10.1) Total Bilirubin 0.3 mg/dL (0.2-1.0) Aspartate Amino Transferase (AST) 24 U/L (15-37) Alanine Aminotransferase (ALT) 35 U/L (16-63) Alkaline Phosphatase 44 U/L (46-116) L Total Protein 6.7 g/dL (6.4-8.2) Albumin 2.8 g/dL (3.4-5.0) L Albumin/Globulin Ratio 0.7 (1.0-1.7) L Current Medications: I have reviewed the current psychotropics carefully including drug interactions. Risk benefit ratio favors no change other than as noted in my dictated progress note. Diagnosis: Problems: (1) Anxiety disorder (2) Dementia in Alzheimer's disease with delusions (3) Dementia in Alzheimer's disease with depression (4) Dementia, vascular, with delusions (5) Dementia, vascular, with depression (6) Impulse control disorder (7) Major neurocognitive disorder GILDARDO CRAWFORD MD Jan 04, 2019 22:32
[2019-01-04] MEDS ORDERED: FLUV50TA2 PO (23:54)
[2019-01-05 06:46] VITALS: BP 115/67
[2019-01-05] MEDS: ASPIRIN 81 MG TAB.CHEW PO SCH (08:20)
[2019-01-05] MEDS: amLODIPine BESYLATE 10 MG TABLET PO SCH (08:21)
[2019-01-05] MEDS: DIVALPROEX 125 MG CAP.SPRINK PO SCH (08:21)
[2019-01-05 08:22] VITALS: BP 115/67
[2019-01-05] MEDS: CYANOCOBALAMIN (VITAMIN B-12) 1,000 MCG TABLET. PO SCH (08:22)
[2019-01-05] MEDS: DOCUSATE SODIUM 100 MG CAPSULE PO SCH (08:22)
[2019-01-05] MEDS: CARVEDILOL 3.125 MG TABLET PO SCH (08:22)
[2019-01-05] MEDS: RIVASTIGMINE 9.5MG PATCH. TD SCH (08:22)
--- NOTE | 2019-01-05 17:44 | PN ---
DATE: 01/03/2019 PSYCHIATRIC PROGRESS NOTE This late entry 01/03/2019 covers elements not covered in my initial note. SUBJECTIVE: I met with the patient evening of 01/03/2019. The patient slept 6-1/2 hours previous night. He is cooperative with showers, confused, and cooperative with medications. He gets paranoid as I meet with him, but around others he does better. REVIEW OF SYSTEMS: No CV, , pulmonary, eye, ENT system symptoms on review. Reliability poor. MENTAL STATUS EXAM: Oriented to himself. Insight, judgment, recent and remote memory, attention, concentration, fund of knowledge poor, consistent with his diagnosis mentioned in my initial note. PLAN: No change from initial note. MAN eJnnifer CRAWFORD MD DR: INOCENCIO/karli JOB#: [id number] / [id number]
--- NOTE | 2019-01-05 22:33 | PDOC ---
Exam Note: Rex Note: Please also refer to the separate dictated note~for this date of service dictated separately.~Patient seen individually. Discussed the patient with Nursing staff reviewed the chart.~Reviewed interim history and current functioning. Reviewed vital signs,~Labs/ Radiology~and current medications noted below. Continue current treatment with the changes noted in the dictated addendum note Assessment: Vital Signs/I&O: Vital Signs Date Time Temp Pulse Resp B/P (MAP) Pulse Ox O2 Delivery O2 Flow Rate FiO2 01/05/19 08:22 55 115/67 01/05/19 06:46 97.5 18 94 01/04/19 17:08 Room Air I & O 01/04/19 01/04/19 01/05/19 14:59 22:59 06:59 Intake Total 600 ml 360 ml Balance 600 ml 360 ml Current Medications: I have reviewed the current psychotropics carefully including drug interactions. Risk benefit ratio favors no change other than as noted in my dictated progress note. Diagnosis: Problems: (1) Anxiety disorder (2) Dementia in Alzheimer's disease with delusions (3) Dementia in Alzheimer's disease with depression (4) Dementia, vascular, with delusions (5) Dementia, vascular, with depression (6) Impulse control disorder (7) Major neurocognitive disorder GILDARDO CRAWFORD MD Jan 05, 2019 22:33
--- NOTE | 2019-01-06 12:48 | DS ---
DATE OF DISCHARGE: 01/05/2019 DISCHARGE SUMMARY AND PSYCHIATRIC PROGRESS NOTE This is a late entry, date of service 01/05 and covers elements not covered in my initial note of 01/05. REASON FOR ADMISSION: Please refer to the admission history for details. Briefly, the patient is an 78-year-old male referred to us from the [address] by his primary care physician, on account of worsening confusion within the context of his major neurocognitive disorder, Alzheimer, vascular with delusion, depression, behavioral disturbance. The patient had been refusing medications because he said he would not take his medications unless Edgar tells him to take them. He was climbing the fence behind the [facility] area and eloping from the facility. He was baring his teeth at staff. He was confused, paranoid, agitated, aggressive, disruptive with behaviors that were deemed dangerous, unmanageable at the facility. He had failed outpatient psychiatric interventions resulting in this referral for inpatient stabilization. SIGNIFICANT FINDINGS AND CLINICAL COURSE: Following admission, the patient was seen daily individually by myself from a psychiatric standpoint, medical followup with Dr. Lei. The patient was extremely confused, anxious, restless, agitated, paranoid, very abrasive as I would meet with him. Adjustments were made in his psychotropics and he seemed to respond to a combination of Depakote Sprinkles 750 mg in the morning and 1000 mg at night and he would take this in vanilla ice cream. Rest of his psychotropics he would take whole. These included Remeron 30 mg at bedtime, Luvox was adjusted to 75 mg a day for his marked obsessiveness. Ativan was 1 mg t.i.d. p.r.n., Zyprexa p.r.n., Risperdal 2 mg p.o. at bedtime and he was on Exelon patch 9.5 mg a day. Prior to discharge on 01/05, no CV, , pulmonary, eye, ENT system symptoms on review. Reliability poor. MENTAL STATUS EXAM: Oriented to himself. Insight, judgment, recent and remote memory, attention, concentration, fund of knowledge poor, consistent with his diagnosis mentioned in my initial note. CONDITION AT DISCHARGE: Improved. FINAL DIAGNOSES: Major neurocognitive disorder, Alzheimer, vascular with delusion, depression, behavioral disturbance; anxiety disorder, unspecified; impulse control disorder, unspecified. Rest unchanged from admission. DISCHARGE MEDICATIONS: Please refer to the [facility]. DISCHARGE INSTRUCTIONS: Outpatient psychiatric and medical followup at the detention. GILDARDO CRAWFORD MD DR: INOCENCIO/karli JOB#: [id number] / [id number]
--- NOTE | 2019-01-06 12:54 | PN ---
DATE: 01/04/2019 This late entry, 01/04, covers elements not covered in my initial note. SUBJECTIVE: I met with the patient in evening of 01/04. The patient slept 7-1/4 hours previous night. He has been confused, compliant, not agitated, aggressive, less paranoid. REVIEW OF SYSTEMS: No CV, , pulmonary, eye, ENT system symptoms on review. Reliability poor. MENTAL STATUS EXAM: Oriented to himself. Insight, judgment, recent and remote memory, attention, concentration, fund of knowledge poor, consistent with his diagnosis mentioned in my initial note. PLAN: No change from initial note. Discharged to skilled nursing on 01/05. MAN Jennifer CRAWFORD MD DR: INOCENCIO/karli JOB#: [id number] / [id number]
== END 2019-01-05 14:30 | DRG 57 ==
LOC: ER 17:13 → GEROPSY 19:30 → ER 19:30
PROVIDERS: ADMIT Psychiatry & Neurology Psychiatry; ATTEND Psychiatry & Neurology Psychiatry
DX: G30.9 Alzheimer's disease, unspecified (principal); F33.3 Major depressive disorder, recurrent, severe with psychotic symptoms; F01.50 Vascular dementia, unspecified severity, without behavioral disturbance, psychotic disturbance, mood disturbance, and anxiety; F02.80 Dementia in other diseases classified elsewhere, unspecified severity, without behavioral disturbance, psychotic disturbance, mood disturbance, and anxiety; F41.1 Generalized anxiety disorder; I12.9 Hypertensive chronic kidney disease with stage 1 through stage 4 chronic kidney disease, or unspecified chronic kidney disease; I25.10 Atherosclerotic heart disease of native coronary artery without angina pectoris; N18.9 Chronic kidney disease, unspecified; Z53.20 Procedure and treatment not carried out because of patient's decision for unspecified reasons; Z79.899 Other long term (current) drug therapy; Z66 Do not resuscitate; Z91.14 Patient's other noncompliance with medication regimen; Z91.19 Patient's noncompliance with other medical treatment and regimen
CPT/HCPCS: 36415; 80053; 80061; 80164; 81001; 82140; 82306; 83036; 83540; 83550; 83735; 84436; 84443; 84480; 85025; 86592; 93005; J3490; 99285-25